=== PATIENT | male | born 1940 | race Caucasian/White ===

== ENCOUNTER 2016-08-27 17:58 | Emergency (ER) | payer MEDICARE, OTHER ==
--- NOTE | 2016-08-27 19:42 | ED ---
Darnell Barros Claudia, scribed for Chintan Grant MD on 08/27/16 at 1931 . Back Pain - HPI Summary HPI Summary: 75 year old male presents to the ED with lower back pain post mechanical fall at about 16:30-17:00 today. Pt notes that was coming in from taking out the trash when he slipped on ice and fell. Pt was unable to help him stand so she dragged him inside out of the cold to await EMS lift assistance. Pt was then complaining of lower back pain so they decided to come to the ED. Pt also suffered a fall on Thursday am but did not have any injuries. Pt does not use an walkers or canes for assistance in waling. Pt notes that he has been walking fine previous to the accident today. - History of Current Complaint Chief Complaint: EDWeakness Stated Complaint: FALL/LOWER BACK PAIN Time Seen by Provider: 08/27/16 19:23 Hx Obtained From: Patient Onset/Duration: Sudden Onset - post mechanical fall this evening at 16:30-17:00 , Still Present Onset/Duration: Started Hours Ago Timing: Constant Pain Intensity: 0 Pain Scale Used: 0-10 Numeric Character: Unable to Describe - Allergies/Home Medications Allergies/Adverse Reactions: Allergies Allergy/AdvReac Type Severity Reaction Status Date / Time Niacin Allergy Rash And Verified 08/23/16 10:14 Itching Sulfa Drugs Allergy Unknown Verified 08/23/16 10:14 Reaction Details Meperidine [From Demerol HCl] AdvReac Intermediate Hallucinati Verified 10:14 on Promethazine [From Phenergan] AdvReac Intermediate Hallucinati Verified 10:14 on contrast dye AdvReac Intermediate Hallucinati Uncoded 07/18/15 13:37 on Home Medications: Home Medications Cholecalciferol TAB* [Vitamin D TAB*] 2,000 units PO QAM 08/27/16 [History Confirmed 08/27/16] [place]-3 Fatty Acids (Nf) [Fish Oil (NF)] 2,000 mg PO QAM 08/27/16 [History Confirmed 08/27/16] metFORMIN* [Glucophage*] 1,000 mg PO QAM 08/27/16 [History Confirmed 08/27/16] PMH/Surg Hx/FS Hx/Imm Hx Previously Healthy: Yes Endocrine/Hematology History: Reports: Hx Diabetes Cardiovascular History: Reports: Hx Coronary Artery Disease, Hx Hypertension, Other Cardiovascular Problems/Disorders - CAD, stent placed 2007 Denies: Hx Pacemaker/ICD Respiratory History: Reports: Hx Chronic Bronchitis - sev. bouts of , early , Hx Pneumonia - late early , Other Respiratory Problems/ Disorders GI History: Reports: Hx Hiatal Hernia, Hx Ulcer - d/t motrin, Other GI Disorders - perforated bowel History: Reports: Hx Benign Prostatic Hyperplasia, Other Problems/ Disorders - BPH Musculoskeletal History: Reports: Hx Arthritis - Knee surgeries, Hx Back Problems - L4 and L5 (laminectomy), Other Musculoskeletal History - RIght big toe deformity leading to surgery Sensory History: Denies: Hx Contacts or Glasses, Hx Hearing Aid Opthamlomology History: Denies: Hx Contacts or Glasses Neurological History: Reports: Hx Dementia - baseline confusion Denies: Other Neuro Impairments/Disorders Psychiatric History: Reports: Hx Depression Denies: Hx Panic Disorder - Surgical History Surgery Procedure, Year, and Place: hernia repair 2002, perforated bowel 2003 all umbilical area[facility] laminectomy, Knee surgeries bilateral, two surgeries on right foot,hiatal hernia repair. , removal of infected tissue from bed sores and surgical site Hx Anesthesia Reactions: No Infectious Disease History: Reports: Hx of Known/Suspected MRSA Denies: History Other Infectious Disease, Traveled Outside the in Last 30 Days - Family History Known Family History: Positive: Cardiac Disease - father D in 60s., Diabetes - Social History Occupation: Retired Lives: With Family Alcohol Use: None Alcohol Amount: ONCE A WEEK OR EOW Substance Use Type: Reports: None Smoking Status (MU): Never Smoked Tobacco Review of Systems Negative: Fever, Chills Eyes: Negative ENT: Negative Cardiovascular: Negative Respiratory: Negative Gastrointestinal: Negative Genitourinary: Negative Positive: Other - back pain Skin: Negative Neurological: Negative Psychological: Normal All Other Systems Reviewed And Are Negative: Yes Physical Exam Triage Information Reviewed: Yes Vital Signs On Initial Exam: Initial Vitals Temp Pulse Resp BP Pulse Ox 98.6 F 93 20 123/48 100 08/27/16 18:04 08/27/16 18:04 08/27/16 18:04 08/27/16 18:04 08/27/16 18:04 Vital Signs Reviewed: Yes Completion Of Physical Exam Limited Due To: Dementia Appearance: Positive: Well-Appearing, No Pain Distress Skin: Positive: Warm Eyes: Positive: MARQUEZ ENT: Positive: Hearing grossly normal Respiratory/Lung Sounds: Positive: Breath Sounds Present Musculoskeletal: Positive: Other - mild lower lumbar area tenerness, able to bear weight Neurological: Positive: Sensory/Motor Intact Psychiatric: Positive: Affect/Mood Appropriate - [place] Coma Scale Coma Scale Total: 15 Diagnostics - Vital Signs Vital Signs Temp Pulse Resp BP Pulse Ox 08/27/16 18:04 98.6 F 93 20 123/48 100 - Laboratory Lab Statement: Any lab studies that have been ordered have been reviewed, and results considered in the medical decision making process. - Radiology PELVIS XR Xray Interpretation: No Acute Changes Radiology Interpretation Completed By: ED Physician LUMBAR SPINE XR Xray Interpretation: No Acute Changes Radiology Interpretation Completed By: ED Physician Re-Evaluation - Re-Evaluation 1 Re-Evaluation Time: 20:36 Change: Improved Comment: Xray results are discussed with the patient. Patient is agreeable with the plan to be d/c home. Back Pain Course/Dx - Course Assessment/Plan: Pt presents with lower back pain post mechanical fall this evening. After Pelvis XR and Lumbar Spine XR both negative. Pt will be discharged home with follow-up with PCP this week. - Diagnoses Provider Diagnoses: Multiple contusions Discharge - Discharge Plan Condition: Improved Disposition: HOME Patient Education Materials: Fall Prevention (ED), Contusion in Adults (ED) Referrals: Darío Linton MD [Primary Care Provider] - 2 Days (Please follow-up. ) The documentation as recorded by the Darnell greenfield Claudia accurately reflects the service I personally performed and the decisions made by , Chintan Grant MD.
--- NOTE | 2016-08-27 20:46 | RAD ---
Indication: Fall backwards. Negative for bruising or deformity. Comparison: November 08, 2010 CT. Technique: AP and lateral views lumbar sacral spine. Report: Minimal grade 1 degenerative L4-L5 anterolisthesis and L2-L3 retrolisthesis without significant change. Negative for fracture. Multilevel degenerative spondylosis with only mild disc space narrowing. Advanced facet joint osteoarthritis throughout. Unremarkable paraspinal soft tissue contours. Upper abdominal and anterior pelvic wall surgical clips. IMPRESSION: No traumatic injury of the lumbar sacral spine evident. Degenerative spondylosis and facet joint osteoarthritis.
--- NOTE | 2016-08-27 20:49 | RAD ---
Indication: Fall backwards. No bruising or deformity. Comparison: June 15, 2013 CT. Technique: AP pelvis. Report: Negative for pelvic fracture or joint diastases. Unremarkable alignment of the hips in the AP projection. Bilateral lower quadrant abdominal wall surgical clips and RIGHT inguinal canal surgical clips. No gross soft tissue contour abnormality accounting for large body habitus. IMPRESSION: No pelvic fracture or joint diastases evident.
[2016-08-27 20:51] VITALS: BP 122/81
== END 2016-08-27 20:49 | disposition home or self-care (01) ==
LOC: ED 17:58
DX: T14.8 Other injury of unspecified body region (principal); M54.5 Low back pain; E11.9 Type 2 diabetes mellitus without complications; I10 Essential (primary) hypertension; I25.10 Atherosclerotic heart disease of native coronary artery without angina pectoris; N40.0 Benign prostatic hyperplasia without lower urinary tract symptoms; J42 Unspecified chronic bronchitis; W00.0XXA Fall on same level due to ice and snow, initial encounter; Y93.E9 Activity, other interior property and clothing maintenance; Y92.9 Unspecified place or not applicable; Z88.2 Allergy status to sulfonamides
CPT/HCPCS: 72100; 72170

== ENCOUNTER 2016-09-22 11:13 | Emergency (ER) | payer MEDICARE, OTHER ==
--- NOTE | 2016-09-22 14:32 | ED ---
Bill Barros Matthew, scribed for Saloni Michelle MD on 09/22/16 at 1314 . Progress - Progress Note Progress Note: Per the the patient is a diabetic. He has a partially amputated right toe. He has not been on Abx, because of the sudden onset of erythema of the left and right foot. Erythema half way up his left foot with good pulses and starting on the lateral edge. right foot with area of hematoma on plantar surface without erythema No Pain Currently Hx of CVA plan xrays of both feet, labs Course/Dx - Diagnoses Provider Diagnoses: Cellulitis The documentation as recorded by the Bill greenfield Matthew accurately reflects the service I personally performed and the decisions made by me, Saloni Michelle MD.
--- NOTE | 2016-09-22 14:48 | RAD ---
INDICATION: Left foot infection. TECHNIQUE: 2 views of the left foot were obtained. FINDINGS: There is soft tissue swelling present over the dorsal aspect of the foot. The bones are normal alignment. No fracture is seen. No periosteal reaction or erosive changes are noted. IMPRESSION: SOFT TISSUE SWELLING, NO SPECIFIC EVIDENCE FOR OSTEOMYELITIS.
--- NOTE | 2016-09-22 14:49 | RAD ---
HISTORY: New focal ulcer, right foot COMPARISONS: June 11, 2014 VIEWS: 2, Frontal, lateral, and oblique views of the right foot FINDINGS: BONE DENSITY: Normal. BONES: There is no displaced fracture. 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 There is no appreciable erosion or periosteal reaction. JOINTS: There is mild osteoporosis of the midfoot ALIGNMENT: There is no dislocation. SOFT TISSUES: Unremarkable. OTHER FINDINGS: None. IMPRESSION: NO ACUTE OSSEOUS INJURY. PLAIN FILM FINDINGS OF OSTEOMYELITIS ARE RELATIVELY LATE FINDINGS. IF THERE IS PERSISTENT CLINICAL CONCERN FOR OSTEOMYELITIS, RECOMMEND CORRELATION WITH FOLLOWUP IMAGING, THREE-PHASE BONE SCANNING, WHITE BLOOD CELL SCAN, AND/OR MRI OF THE AFFECTED REGION. .
[2016-09-22 15:05] LABS: Hematocrit 44 % (42-52); Hemoglobin 14.4 g/dl (14.0-18.0); Mean Corpuscular HGB Conc 33 g/dl (31-36); Mean Corpuscular Hemoglobin 33 pg (27-31); Mean Corpuscular Volume 100 fL (80-94); Mean Platelet Volume 10 um3 (7.4-10.4); Red Blood Count 4.38 10^6/ul (4.0-5.4); Red Cell Distribution Width 14 % (10.5-15); White Blood Count 5.8 10^3/ul (3.5-10.8)
[2016-09-22 15:20] LABS: Albumin 4.1 g/dL (3.2-5.2); C Reactive Protein 4.82 mg/L (< 5.00); Calcium 9.6 mg/dL (8.6-10.3); EGFR African American 101.2 (>60); EGFR Non-African American 78.7 (>60); Globulin 3.2 g/dL (2-4); Total Bilirubin 0.5 mg/dL (0.2-1.0); Total Protein 7.3 g/dL (6.4-8.9)
[2016-09-22 15:42] LABS: Potassium 4.7 mmol/L (3.5-5.0)
[2016-09-22] MEDS ORDERED: Clindamycin CAP* 150 MG PO ONE (15:59)
[2016-09-22 16:26] VITALS: BP 112/67
--- NOTE | 2016-09-22 17:05 | ED ---
Yovani Barros Michael, scribed for Ronaldo Lutz MD on 09/22/16 at 1555 . Skin Complaint - HPI Summary HPI Summary: 75 y/o male was referred to the ED by a career orientation teacher because of constant erythema of the left foot that started 5 days ago. The area of the foot affected by the erythema was warm per . The pt has 2 blood blisters on each big toe with swelling. The notes, to her knowledge, the pt has not presented a fever and denies foot pain. The PMHx is significant for DM and CVA which left the pt with a language deficit. - History of Current Complaint Chief Complaint: EDGeneral Time Seen by Provider: 09/22/16 15:37 Stated Complaint: WOUND ON RT FOOT/LT FOOT POSS INFECTION Hx Obtained From: Family/Editor Index - , Medical Records Hx From Patient Unobtainable Due To: Other - CVA-language deficit Onset/Duration: Started Days Ago, Still Present Skin Exposure Onset/Duration: Days Ago Timing: Constant Onset Severity: Moderate Current Severity: Moderate Pain Intensity: 16 Skin Location: Foot - left Character: Swelling, Redness Aggravating Symptom(s): Nothing Alleviating Symptom(s): Nothing Associated Signs & Symptoms: Negative - fever. foot pain. - Additional Pertinent History Primary Care Physician: [id number] - Allergy/Home Medications Allergies/Adverse Reactions: Allergies Allergy/AdvReac Type Severity Reaction Status Date / Time Niacin Allergy Rash And Verified 08/23/16 10:14 Itching Sulfa Drugs Allergy Unknown Verified 08/23/16 10:14 Reaction Details Meperidine [From Demerol HCl] AdvReac Intermediate Hallucinati Verified 10:14 on Promethazine [From Phenergan] AdvReac Intermediate Hallucinati Verified 10:14 on contrast dye AdvReac Intermediate Hallucinati Uncoded 07/18/15 13:37 on PMH/Surg Hx/FS Hx/Imm Hx Endocrine/Hematology History: Reports: Hx Diabetes Cardiovascular History: Reports: Hx Coronary Artery Disease, Hx Hypertension, Other Cardiovascular Problems/Disorders - CAD, stent placed 2007 Denies: Hx Pacemaker/ICD Respiratory History: Reports: Hx Chronic Bronchitis - sev. bouts of , early , Hx Pneumonia - late s early , Other Respiratory Problems/ Disorders GI History: Reports: Hx Hiatal Hernia, Hx Ulcer - d/t motrin, Other GI Disorders - perforated bowel History: Reports: Hx Benign Prostatic Hyperplasia, Other Problems/ Disorders - BPH Musculoskeletal History: Reports: Hx Arthritis - Knee surgeries, Hx Back Problems - L4 and L5 (laminectomy), Other Musculoskeletal History - RIght big toe deformity leading to surgery Sensory History: Denies: Hx Contacts or Glasses, Hx Hearing Aid Opthamlomology History: Denies: Hx Contacts or Glasses Neurological History: Reports: Hx Dementia - baseline confusion Denies: Other Neuro Impairments/Disorders Psychiatric History: Reports: Hx Depression Denies: Hx Panic Disorder - Surgical History Surgery Procedure, Year, and Place: hernia repair 2002, perforated bowel 2003 all umbilical area, [facility] laminectomy, Knee surgeries bilateral, two surgeries on right foot,hiatal hernia repair. , removal of infected tissue from bed sores and surgical site Hx Anesthesia Reactions: No Infectious Disease History: Yes Infectious Disease History: Reports: Hx of Known/Suspected MRSA Denies: History Other Infectious Disease, Traveled Outside the in Last 30 Days - Family History Known Family History: Positive: Cardiac Disease - father D in 60s., Diabetes - Social History Occupation: Retired Lives: With Family Alcohol Use: None Alcohol Amount: ONCE A WEEK OR EOW Substance Use Type: Reports: None Smoking Status (MU): Never Smoked Tobacco Review of Systems Negative: Fever Positive: Other - erythema left foot and swelling of right/left foot All Other Systems Reviewed And Are Negative: Yes Physical Exam Triage Information Reviewed: Yes Vital Signs On Initial Exam: Initial Vitals Temp Pulse Resp BP Pulse Ox 97.5 F 76 18 114/72 95 09/22/16 11:27 09/22/16 11:27 09/22/16 11:27 09/22/16 11:27 09/22/16 11:27 Vital Signs Reviewed: Yes Appearance: Positive: Well-Appearing, No Pain Distress Skin: Positive: Warm, Dry, Other - left foot erythema of distal foot. 1 cm blood blister on medial aspect of the base of the left big toe. Right foot dorsum underneath big toe 1.5 cm blood blister with swelling. Head/Face: Positive: Normal Head/Face Inspection Eyes: Positive: EOMI, MARQUEZ ENT: Positive: Normal ENT inspection Neck: Positive: Supple, No Lymphadenopathy Respiratory/Lung Sounds: Positive: Clear to Auscultation, Breath Sounds Present Cardiovascular: Positive: RRR, Other - good dorsalis pedis pulse bilaterally and cap refill. Abdomen Description: Positive: Nontender, Soft Bowel Sounds: Positive: Present Musculoskeletal: Positive: Normal, Strength/ROM Intact Neurological: Positive: Normal, Sensory/Motor Intact, Alert, Oriented to Person Place, Time Psychiatric: Positive: Affect/Mood Appropriate Diagnostics - Vital Signs Vital Signs Temp Pulse Resp BP Pulse Ox 09/22/16 14:44 98.4 F 69 18 100/60 100 09/22/16 13:02 65 18 95/68 100 09/22/16 11:27 97.5 F 76 18 114/72 95 - Laboratory Lab Results: Lab Results 09/22/16 09/22/16 Range/Units 14:50 14:50 WBC 5.8 (3.5-10.8) 10^3/ul RBC 4.38 (4.0-5.4) 10^6/ul Hgb 14.4 (14.0-18.0) g/dl Hct 44 (42-52) % MCV 100 H (80-94) fL MCH 33 H (27-31) pg MCHC 33 (31-36) g/dl RDW 14 (10.5-15) % Plt Count 125 L (150-450) 10^3/ul MPV 10 (7.4-10.4) um3 Neut % (Auto) 56.5 (38-83) % Lymph % (Auto) 32.0 (25-47) % [place] % (Auto) 8.9 (1-9) % Eos % (Auto) 1.4 (0-6) % Baso % (Auto) 1.2 (0-2) % Absolute Neuts (auto) 3.3 (1.5-7.7) 10^3/ul Absolute Lymphs (auto) 1.8 (1.0-4.8) 10^3/ul Absolute Monos (auto) 0.5 (0-0.8) 10^3/ul Absolute Eos (auto) 0.1 (0-0.6) 10^3/ul Absolute Basos (auto) 0.1 (0-0.2) 10^3/ul Absolute Nucleated RBC 0.01 10^3/ul Nucleated RBC % 0.2 Sodium 133 (133-145) mmol/L Potassium Pending Chloride 104 (101-111) mmol/L Carbon Dioxide 23 (22-32) mmol/L Anion Gap Pending BUN 16 (6-24) mg/dL Creatinine 0.94 (0.67-1.17) mg/dL Est GFR ( Amer) 101.2 (>60) Est GFR (Non-Af Amer) 78.7 (>60) BUN/Creatinine Ratio 17.0 (8-20) Glucose 167 H (70-100) mg/dL Calcium 9.6 (8.6-10.3) mg/dL Total Bilirubin 0.50 (0.2-1.0) mg/dL AST Pending ALT 25 (7-52) U/L Alkaline Phosphatase 57 (34-104) U/L C-Reactive Protein 4.82 (< 5.00) mg/L Total Protein 7.3 (6.4-8.9) g/dL Albumin 4.1 (3.2-5.2) g/dL Globulin 3.2 (2-4) g/dL Albumin/Globulin Ratio 1.3 (1-3) Result Diagrams: 09/22/16 14:50 09/22/16 14:50 Lab Statement: Any lab studies that have been ordered have been reviewed, and results considered in the medical decision making process. - Radiology R foot XR Xray Interpretation: Positive (See Comments) - NO ACUTE OSSEOUS INJURY. PLAIN FILM FINDINGS OF OSTEOMYELITIS ARE RELATIVELY LATE FINDINGS. IF THERE IS PERSISTENT CLINICAL CONCERN FOR OSTEOMYELITIS, RECOMMEND CORRELATION WITH FOLLOWUP IMAGING, THREE-PHASE BONE SCANNING, WHITE BLOOD CELL SCAN, AND/OR MRI OF THE AFFECTED REGION. Radiology Interpretation Completed By: Radiologist L foot XR Xray Interpretation: Positive (See Comments) - SOFT TISSUE SWELLING, NO SPECIFIC EVIDENCE FOR OSTEOMYELITIS. Radiology Interpretation Completed By: Radiologist Course/Dx - Course Assessment/Plan: The patient will start on PO abx. He will follow up his foot and PCP and return to the ED if his symptoms worsen. WILL START ON CLINDAMYCIN 300MG PO QID WITH CLOSE F/U WITH PMD/DEPARTMENT STORE SALESPERSON; RETURN TO ED IF WORSE. DISCHARGE HOME STABLE. - Diagnoses Provider Diagnoses: Cellulitis, Diabetic foot infection Discharge - Discharge Plan Condition: Stable Disposition: HOME Prescriptions: Clindamycin Cap(NF) [Cleocin 300 mg Cap(NF)] 300 mg PO Q6H #39 cap Patient Education Materials: Cellulitis (ED), Diabetic Foot Ulcers (ED) Referrals: Darío Linton MD [Primary Care Provider] - Additional Instructions: FOLLOW UP WITH YOUR FOOT AND REGULAR DOCTOR. RETURN TO THE EMERGENCY DEPARTMENT FOR ANY WORSENING OF YOUR CONDITION; FEVER, SPREAD OF INFECTION, YOU FEEL ILL OR QUESTIONS OR CONCERNS. The documentation as recorded by the Yovani greenfield Michael accurately reflects the service I personally performed and the decisions made by me, Ronaldo Lutz MD.
== END 2016-09-22 16:25 | disposition home or self-care (01) ==
LOC: ED 11:13
DX: L03.116 Cellulitis of left lower limb (principal); E11.628 Type 2 diabetes mellitus with other skin complications; Z86.73 Personal history of transient ischemic attack (TIA), and cerebral infarction without residual deficits
CPT/HCPCS: 36415; 80053; 85025; 86140; 87040; 99283; A9270-GY

== ENCOUNTER 2017-01-18 11:03 | Inpatient (IN) | payer MEDICARE, OTHER ==
[2017-01-18 12:11] LABS: Hematocrit 44 % (42-52); Hemoglobin 14.7 g/dl (14.0-18.0); Mean Corpuscular HGB Conc 34 g/dl (31-36); Mean Corpuscular Hemoglobin 32 pg (27-31); Mean Corpuscular Volume 96 fL (80-94); Mean Platelet Volume 9 um3 (7.4-10.4); Red Blood Count 4.57 10^6/ul (4.0-5.4); Red Cell Distribution Width 14 % (10.5-15); White Blood Count 10.1 10^3/ul (3.5-10.8)
--- NOTE | 2017-01-18 12:21 | RAD ---
HISTORY: Increased right upper extremity weakness COMPARISONS: August 23, 2016 TECHNIQUE: Multiple contiguous axial CT scans were obtained of the head without intravenous contrast. FINDINGS: The study is limited by patient motion artifact. HEMORRHAGE/INFARCT: There is no hemorrhage or acute infarct. MASSES/SHIFT: There is no mass or shift. EXTRA-AXIAL SPACES: There are no extra-axial fluid collections. SULCI AND VENTRICLES: There is diffuse and proportional enlargement of the sulci and ventricles. CEREBRUM: There is mild hypoattenuation of the periventricular and subcortical white matter. BRAINSTEM: There are no focal parenchymal abnormalities. CEREBELLUM: There are no focal parenchymal abnormalities. VESSELS: The vessels are grossly normal. PARANASAL SINUSES: The paranasal sinuses are clear. ORBITS: The orbits are unremarkable. BONES AND SOFT TISSUE: No bone or soft tissue abnormalities are noted. OTHER: None IMPRESSION: 1. NO ACUTE INTRACRANIAL PATHOLOGY. 2. DIFFUSE INVOLUTIONAL CHANGE WITH CHRONIC SMALL VESSEL ISCHEMIC CHANGES.
--- NOTE | 2017-01-18 12:26 | RAD ---
HISTORY: Weakness COMPARISONS: January 12, 2017 VIEWS: 2: Frontal and lateral views of the chest. FINDINGS: CARDIOMEDIASTINAL SILHOUETTE: The cardiomediastinal silhouette is normal. PATRICK: The patrick are normal. PLEURA: The costophrenic angles are sharp. No pleural abnormalities are noted. LUNG PARENCHYMA: The lung volumes are low. The lungs are clear. Again noted is patchy alveolar opacification of the left lung base, though this is not as well evaluated on the current examination. ABDOMEN: The upper abdomen is clear. There is no subphrenic gas. BONES AND SOFT TISSUES: No bone or soft tissue abnormalities are noted. OTHER: None. IMPRESSION: LOW LUNG VOLUMES WITH PERSISTENT LEFT BASILAR ATELECTASIS VERSUS CONSOLIDATION
[2017-01-18 12:32] LABS: Albumin 3.9 g/dL (3.2-5.2); BUN/Creatinine Ratio 19.3 (8-20); Calcium 9.6 mg/dL (8.6-10.3); EGFR Non-African American 66.1 (>60); Potassium 4.1 mmol/L (3.5-5.0); Total Bilirubin 0.5 mg/dL (0.2-1.0); Total Protein 6.9 g/dL (6.4-8.9)
[2017-01-18 12:33] LABS: Troponin I 0.01 ng/mL (<0.04)
[2017-01-18 13:05] LABS: Urine Bilirubin Negative (Negative); Urine Glucose 1+(50 mg/dL) (Negative); Urine Nitrite Negative (Negative)
[2017-01-18] MEDS ORDERED: Acetaminophen TAB* 325 MG PO PRN (16:56)
[2017-01-18] MEDS ORDERED: Ondansetron INJ* 2 MG/ML VIAL IV PRN (16:56)
[2017-01-18] MEDS ORDERED: Dextrose 50% Syringe 50 ML* 25 GM/50 ML SYRINGE IV PUSH PRN (16:59)
[2017-01-18] MEDS ORDERED: NS 0.9% 1000 ML* 1,000 ML IV SCH (17:00)
[2017-01-18] MEDS: Enoxaparin(*) 40 MG/0.4 ML SYR SUBCUT SCH (18:11)
[2017-01-18] MEDS: Aspirin Low Dose CHEW TAB* 81 MG PO SCH (18:11)
[2017-01-18] MEDS: Insulin LISPRO* 1 UNITS UNIT SUBCUT SCH (18:16)
--- NOTE | 2017-01-18 18:44 | ED ---
Ayan Barros Auryana, scribed for Haim Medina MD on 01/18/17 at 1212 . Neurological HPI - HPI Summary HPI Summary: 76 year old male presents with increased weakness per . Patient states that he also has a headache but denies any other pain. Per report from nurse - recent dx of PNA; also recently had unwitnessed fall while stepped out of room for a minute - 3 days ago. reports that patient was fine at the time but in the following days he developed increased lethargy and weakness. Today, reports that patient was unable to walk- normally is able to walk. is the primary caregiver. PMHx is significant for CVA, and dementia . Patient is a level 5 caveat due to dementia and AMS. - History of Current Complaint Chief Complaint: EDWeakness Stated Complaint: WEAKNESS Time Seen by Provider: 01/18/17 11:29 Hx Obtained From: Family/Legal Administrative Assistant, Medical Records, Other: - nurse/triage Hx From Patient Unobtainable Due To: Dementia - level 5 caveat due to dementia/ AMS Onset/Duration: Gradual Onset Timing: Constant Onset Severity: Mild Current Severity: Mild Headache Location: Diffuse (Right), Diffuse (Left) Pain Intensity: 0 Pain Scale Used: 0-10 Numeric Character: Weak, Lethargy - increased per nurse report from , Other: - patient reports FLORES Syncope Context: Unwitnessed, At Rest - sitting before fall, Associated Head Trauma - none Associated Signs and Symptoms: Positive: Unsteady Gait - unable to ambulate, Headache, Weakness - Additional Pertinent History Primary Care Physician: [id number] - Allergy/Home Medications Allergies/Adverse Reactions: Allergies Allergy/AdvReac Type Severity Reaction Status Date / Time Niacin Allergy Rash And Verified 01/18/17 11:18 Itching Sulfa Drugs Allergy Unknown Verified 01/18/17 11:18 Reaction Details Meperidine [From Demerol HCl] AdvReac Intermediate Hallucinati Verified 11:18 on Promethazine [From Phenergan] AdvReac Intermediate Hallucinati Verified 11:18 on contrast dye AdvReac Intermediate Hallucinati Uncoded 01/18/17 11:18 on Home Medications: Home Medications Keflex 500 CAP* 500 mg PO BID 01/18/17 [History Confirmed 01/18/17] Levofloxacin TAB* [Levaquin TAB*] 500 mg PO DAILY 01/18/17 [History Confirmed ] PMH/Surg Hx/FS Hx/Imm Hx Previously Healthy: No - PATIENT IS A LEVEL 5 CAVEAT DUE TO DEMENTIA/AMS Endocrine/Hematology History: Reports: Hx Diabetes Cardiovascular History: Reports: Hx Coronary Artery Disease, Other Cardiovascular Problems/Disorders - HX OF STROKE IN 2002 Denies: Hx Congestive Heart Failure, Hx Hypertension, Hx Pacemaker/ICD Respiratory History: Reports: Hx Chronic Bronchitis - sev. bouts of , early , Hx Pneumonia - late early Denies: Hx Asthma, Other Respiratory Problems/Disorders GI History: Reports: Hx Hiatal Hernia, Hx Ulcer - d/t motrin, Other GI Disorders - perforated bowel History: Reports: Hx Benign Prostatic Hyperplasia, Other Problems/ Disorders - BPH Musculoskeletal History: Reports: Hx Arthritis - Knee surgeries, Hx Back Problems - L4 and L5 (laminectomy), Other Musculoskeletal History - RIght big toe deformity leading to surgery Sensory History: Denies: Hx Contacts or Glasses, Hx Hearing Aid Opthamlomology History: Denies: Hx Contacts or Glasses Neurological History: Reports: Hx CVA, Hx Dementia - baseline confusion Denies: Other Neuro Impairments/Disorders Psychiatric History: Reports: Hx Depression Denies: Hx Panic Disorder - Surgical History Surgery Procedure, Year, and Place: hernia repair 2002, perforated bowel 2003 all umbilical area[facility] laminectomy, Knee surgeries bilateral, two surgeries on right foot,hiatal hernia repair. , removal of infected tissue from bed sores and surgical site Hx Anesthesia Reactions: No Infectious Disease History: No Infectious Disease History: Reports: Hx of Known/Suspected MRSA Denies: History Other Infectious Disease, Traveled Outside the in Last 30 Days - Family History Known Family History: Positive: Cardiac Disease - father D in 60s., Diabetes - Social History Occupation: Retired Lives: With Family Alcohol Use: None Alcohol Amount: ONCE A WEEK OR EOW Substance Use Type: Reports: None Smoking Status (MU): Never Smoked Tobacco Review of Systems - ROS Summary Review of Systems Summary: PATIENT IS A LEVEL 5 CAVEAT DUE TO DEMENTIA/AMS. Negative: Fever Negative: Chest Pain Positive: Headache, Weakness Psychological: Normal All Other Systems Reviewed And Are Negative: No Physical Exam - Summary Physical Exam Summary: VITAL SIGNS: Reviewed. GENERAL: Patient is a fragile and disheveled male who is lying comfortable in the stretcher. Patient is not in any acute respiratory distress. HEAD AND FACE: No signs of trauma. No ecchymosis, hematomas or skull depressions. No sinus tenderness. EYES: PERRLA, EOMI x 2, No injected conjunctiva, no nystagmus. No photophobia. EARS: Hearing grossly intact. Ear canals and tympanic membranes are within normal limits. MOUTH: Oropharynx within normal limits. NECK: Supple, trachea is midline, no adenopathy, no JVD, no carotid bruit, no c- spine tenderness, neck with full ROM. No meningeal signs, no Kernig's or brudzinskis signs. CHEST: Symmetric, no tenderness at palpation LUNGS: Clear to auscultation bilaterally. No wheezing or crackles. CVS: Regular rate and rhythm, S1 and S2 present, no murmurs or gallops appreciated. ABDOMEN: Soft, non-tender. No signs of distention. No rebound no guarding, and no masses palpated. Bowel sounds are normal. EXTREMITIES: FROM in all major joints, no edema, no cyanosis or clubbing. NEURO: Alert but not oriented-patient has a hsitory of dementia. RUE weakness. Patient follows commands. Speech normal. SKIN: Dry and warm Triage Information Reviewed: Yes Vital Signs On Initial Exam: Initial Vitals Temp Pulse Resp BP Pulse Ox 97.7 F 97 14 116/57 97 01/18/17 11:12 01/18/17 11:12 01/18/17 11:12 01/18/17 11:12 01/18/17 11:12 Vital Signs Reviewed: Yes - Loli Coma Scale Coma Scale Total: 14 Diagnostics - Vital Signs Vital Signs Temp Pulse Resp BP Pulse Ox 01/18/17 11:17 95 98 01/18/17 11:16 116/57 01/18/17 11:14 97.7 F 98 14 116/57 100 01/18/17 11:12 97.7 F 97 14 116/57 97 - Laboratory Lab Results: Lab Results 01/18/17 01/18/17 01/18/17 Range/Units 11:50 11:50 11:50 WBC 10.1 (3.5-10.8) 10^3/ul RBC 4.57 (4.0-5.4) 10^6/ul Hgb 14.7 (14.0-18.0) g/dl Hct 44 (42-52) % MCV 96 H (80-94) fL MCH 32 H (27-31) pg MCHC 34 (31-36) g/dl RDW 14 (10.5-15) % Plt Count 158 (150-450) 10^3/ul MPV 9 (7.4-10.4) um3 Neut % (Auto) 73.2 (38-83) % Lymph % (Auto) 16.0 L (25-47) % [place] % (Auto) 8.9 (1-9) % Eos % (Auto) 1.3 (0-6) % Baso % (Auto) 0.6 (0-2) % Absolute Neuts (auto) 7.4 (1.5-7.7) 10^3/ul Absolute Lymphs (auto) 1.6 (1.0-4.8) 10^3/ul Absolute Monos (auto) 0.9 H (0-0.8) 10^3/ul Absolute Eos (auto) 0.1 (0-0.6) 10^3/ul Absolute Basos (auto) 0.1 (0-0.2) 10^3/ul Absolute Nucleated RBC 0 10^3/ul Nucleated RBC % 0 INR (Anticoag Therapy) 0.99 (0.89-1.11) Sodium 137 (133-145) mmol/L Potassium 4.1 (3.5-5.0) mmol/L Chloride 103 (101-111) mmol/L Carbon Dioxide 25 (22-32) mmol/L Anion Gap 9 (2-11) mmol/L BUN 21 (6-24) mg/dL Creatinine 1.09 (0.67-1.17) mg/dL Est GFR ( Amer) 85.0 (>60) Est GFR (Non-Af Amer) 66.1 (>60) BUN/Creatinine Ratio 19.3 (8-20) Glucose 192 H (70-100) mg/dL Lactic Acid (0.5-2.0) mmol/L Calcium 9.6 (8.6-10.3) mg/dL Total Bilirubin 0.50 (0.2-1.0) mg/dL AST 14 (13-39) U/L ALT 13 (7-52) U/L Alkaline Phosphatase 74 (34-104) U/L Troponin I 0.01 (<0.04) ng/mL Total Protein 6.9 (6.4-8.9) g/dL Albumin 3.9 (3.2-5.2) g/dL Globulin 3.0 (2-4) g/dL Albumin/Globulin Ratio 1.3 (1-3) TSH Cancelled Urine Color Urine Appearance Urine pH (5-9) Ur Specific [place] (1.010-1.030) Urine Protein (Negative) Urine Ketones (Negative) Urine Blood (Negative) Urine Nitrate (Negative) Urine Bilirubin (Negative) Urine Urobilinogen (Negative) Ur Leukocyte Esterase (Negative) Urine Glucose (Negative) 01/18/17 01/18/17 Range/Units 11:50 12:45 WBC (3.5-10.8) 10^3/ul RBC (4.0-5.4) 10^6/ul Hgb (14.0-18.0) g/dl Hct (42-52) % MCV (80-94) fL MCH (27-31) pg MCHC (31-36) g/dl RDW (10.5-15) % Plt Count (150-450) 10^3/ul MPV (7.4-10.4) um3 Neut % (Auto) (38-83) % Lymph % (Auto) (25-47) % [place] % (Auto) (1-9) % Eos % (Auto) (0-6) % Baso % (Auto) (0-2) % Absolute Neuts (auto) (1.5-7.7) 10^3/ul Absolute Lymphs (auto) (1.0-4.8) 10^3/ul Absolute Monos (auto) (0-0.8) 10^3/ul Absolute Eos (auto) (0-0.6) 10^3/ul Absolute Basos (auto) (0-0.2) 10^3/ul Absolute Nucleated RBC 10^3/ul Nucleated RBC % INR (Anticoag Therapy) (0.89-1.11) Sodium (133-145) mmol/L Potassium (3.5-5.0) mmol/L Chloride (101-111) mmol/L Carbon Dioxide (22-32) mmol/L Anion Gap (2-11) mmol/L BUN (6-24) mg/dL Creatinine (0.67-1.17) mg/dL Est GFR ( Amer) (>60) Est GFR (Non-Af Amer) (>60) BUN/Creatinine Ratio (8-20) Glucose (70-100) mg/dL Lactic Acid 1.7 (0.5-2.0) mmol/L Calcium (8.6-10.3) mg/dL Total Bilirubin (0.2-1.0) mg/dL AST (13-39) U/L ALT (7-52) U/L Alkaline Phosphatase (34-104) U/L Troponin I (<0.04) ng/mL Total Protein (6.4-8.9) g/dL Albumin (3.2-5.2) g/dL Globulin (2-4) g/dL Albumin/Globulin Ratio (1-3) TSH Urine Color Yellow Urine Appearance Clear Urine pH 5.0 (5-9) Ur Specific [place] 1.026 (1.010-1.030) Urine Protein Negative (Negative) Urine Ketones Trace H (Negative) Urine Blood Negative (Negative) Urine Nitrate Negative (Negative) Urine Bilirubin Negative (Negative) Urine Urobilinogen Negative (Negative) Ur Leukocyte Esterase Negative (Negative) Urine Glucose 1+(50 mg/dl) H (Negative) Result Diagrams: 01/18/17 11:50 01/18/17 11:50 Lab Statement: Any lab studies that have been ordered have been reviewed, and results considered in the medical decision making process. - Radiology CXR Xray Interpretation: Positive (See Comments) - IMPRESSION: LOW LUNG VOLUMES WITH PERSISTENT LEFT BASILAR ATELECTASIS VERSUS CONSOLIDATION Radiology Interpretation Completed By: Radiologist - CT BRAIN CT Interpretation: Positive (See Comments) - IMPRESSION: 1. NO ACUTE INTRACRANIAL PATHOLOGY. 2. DIFFUSE INVOLUTIONAL CHANGE WITH CHRONIC SMALL VESSEL ISCHEMIC CHANGES. CT Interpretation Completed By: Radiologist - EKG 12:27 EKG Interpretation: NSR @ 87 BPM, NO ST ELEVATION Course/Dx - Course Course Of Treatment: 76 year old male presents with increased weakness per . Patient states that he also has a headache but denies any other pain. Per report from nurse - recent dx of PNA; also recently had unwitnessed fall while stepped out of room for a minute - 3 days ago. reports that patient was fine at the time but in the following days he developed increased lethargy and weakness. Today, reports that patient was unable to walk- normally is able to walk. is the primary caregiver. PMHx is significant for CVA, and dementia . Patient is a level 5 caveat due to dementia and AMS. Assessment/Plan: Test result WNL. UA shows no U.T.I. CXR- IMPRESSION: LOW LUNG VOLUMES WITH PERSISTENT LEFT BASILAR ATELECTASIS VERSUS CONSOLIDATION. HEAD CT - IMPRESSION: 1. NO ACUTE INTRACRANIAL PATHOLOGY. 2. DIFFUSE INVOLUTIONAL CHANGE WITH CHRONIC SMALL VESSEL ISCHEMIC CHANGES. In ED course patient was given IV fluids but still is very weak. Attempted to ambulate but unable to ambulate therefore I discussed my physical exam and findings with Dr. Olmstead who agree to admit for further work up. Patient will be admitted to his services with weakness, inability to ambulate, inability to care for himself. - Diagnoses Provider Diagnoses: Weakness, Unable to ambulate - Physician Notifications Discussed Care of Patient With: Dr. Olmstead/ VOLODYMYR TOBAR Time Discussed With Above Provider: 15:00 - agrees to admit Discharge - Discharge Plan Condition: Stable Disposition: ADMITTED TO [facility] The documentation as recorded by the Ayan greenfield Auryana accurately reflects the service I personally performed and the decisions made by me, Haim Medina MD.
[2017-01-18] MEDS: Cephalexin CAP* 500 MG PO SCH (20:34)
[2017-01-18] MEDS: Nystatin CREAM* 15 GM TUBE TOPICAL SCH (20:34)
--- NOTE | 2017-01-18 22:32 | HP ---
HISTORY AND PHYSICAL: DATE OF ADMISSION: 01/18/17 PROVIDER: Jean Claude Mayorga NP ATTENDING PHYSICIAN: Lindsay Olmstead DO* (as dictated by Jean Claude Mayorga NP). PRIMARY CARE PHYSICIAN: Dr. Darío Linton. CHIEF COMPLAINT: Inability to ambulate, altered mental status, weakness. HISTORY OF PRESENT ILLNESS: Mr. Bustamante is a 76-year-old male with a past medical history significant for dementia, previous CVA. The patient does have expressive aphasia. The history was provided by the patient's and front end software developer, Aliza Bustamante. Per Aliza, Mr. Bustamante fell back on , . This was an unwitnessed fall. She states that on 01/09/17, the patient was sitting in a chair eating ice cream. She got up to go print out a recipe and then heard him fall. She said the patient he does not call out when he does fall. At this point, she states "everything changed." Prior to this fall, the patient could walk and follow directions. She states that they were previously walking each day out in the community. They would go to visit their son down the road at his diner. She cites that on 01/12/17, she was able to get the patient up and walking and they went to go see their PCP. An EKG and labs were drawn there. They did have an x- ray ordered to evaluate for pneumonia as the EKG and laboratory workup were apparently mostly benign. She said at that time the patient had difficulty understanding what the x-ray tech was asking for him to do and that she had to help him bodily get through the x- ray procedure. This is abnormal for him. She also reports that since this period of time around the through the , the patient has been sleeping more at times up to 3 p.m. in the afternoon. She states that in the morning, the patient can still get up and stand and walk, but usually by evening, he could barely transfer that she has to bodily place him in the bed. She also reports that he has been increasingly more short of breath. He was diagnosed with pneumonia following that chest x-ray on the and was started on Levaquin. Dr. Linton did try to have the patient's oxygen measured at home, but the patient was uncooperative with the oximetry probe. Ms. Bustamante states that since July of last year, he has fallen numerous times he thinks about 8 times. She says most of these events were him falling out of bed. They also usually trace back to mechanical falls. She is usually able to get him up with help from family or she will call EMS for lift assist. She also points out that the patient's left index finger which had some redness just below the cuticle area. He has been on Keflex for the cellulitis as well as Levaquin for his pneumonia. On the morning of 01/18/17, the patient woke up at approximately 8 a.m., which is closer to his normal. She was able to help him get up, get shaved, showered , and dressed, and they went for a walk just after 9 a.m. with his walker. She states that the patient had to stop 3 times due to shortness of breath even only traveling approximately 30 to 60 feet. He still exhibited difficulty following directions. The patient sat down and then, they had difficulty getting him up and he was unable to stand. At this point, he was brought in by ambulance for further evaluation. In the ER, the patient had labs drawn, which are mostly benign. The patient's urinalysis is negative, although he does seem to have a little bit of dehydration. The nursing staff attempted to ambulate the patient, but he was unable to do so. Hospital Medicine was called for admission. PAST MEDICAL HISTORY: Includes: 1. Yde-[id number] diabetes. 2. History of CVA. 3. Dementia. 4. Coronary artery disease, status post stent placement. 5. Hypertension. 6. History of perforated bowel. 7. History of depression with suicidality. 8. Vasovagal syncope. HOME MEDICATIONS: 1. Levofloxacin 500 mg daily. This was started on 01/13/17. 2. Keflex 500 mg b.i.d. for right finger cellulitis. This was started on 01/13. 3. Plavix 75 mg q.a.m. 4. Vitamin D 2000 units q.a.m. 5. Metformin 1000 mg q.a.m. 6. [place]-3 2000 mg q.a.m. 7. Metoprolol tartrate 25 mg q.a.m. 8. Donepezil 10 mg daily. 9. Coenzyme Q10 200 mg q.a.m. ALLERGIES: Include NIACIN, SULFA DRUGS, MEPERIDINE, PROMETHAZINE, and CONTRAST DYE. FAMILY HISTORY: Reviewed and noncontributory. SOCIAL HISTORY: The patient does not currently use tobacco, alcohol, or illicit drugs. He lives with his , who is his primary front end software developer. The patient formerly worked at [employer]. Aliza Bustamante is his healthcare proxy and surrogate decision maker. His son, Howie Bustamante, would be the secondary healthcare proxy. REVIEW OF SYSTEMS: General: denies any fevers. The patient has been eating well and swallowing well. She does endorse generalized weakness and inability to ambulate. Cardiac: Denies any complaints of chest pain or edema. Respiratory: Denies cough, but does endorse shortness of breath with ambulation. GI: Denies nausea, vomiting, or diarrhea. The patient's last bowel movement was 4 days ago. Genitourinary: The patient is incontinent of urine, but denies any foul-smelling urine, dysuria, or hematuria. Neuro: The patient has expressive aphasia and new difficulty following directions as well as waxing and waning mental status. No focal weaknesses have been noted. ENT: No congestion, visual or hearing changes. Musculoskeletal: No new joint pains or muscle pains. The patient was previously able to walk and does not complain of any pain when he is able to ambulate. He does have a left index finger cellulitis, but range of motion was intact. Skin: Again, left index finger cellulitis. There is a perianal rash that she reports is from incontinence. The patient is unable to contribute any information towards review of systems. All information obtained from the patient's , Aliza. PHYSICAL EXAMINATION GENERAL: Mr. Bustamante is a 76-year-old male patient, who is lying in the ED stretcher. He is unable to verbalize, but appears well nourished. VITAL SIGNS: Temperature 97.3, heart rate 102, respiratory rate 20, blood pressure 93/52, and O2 saturation is 96% on room air. HEENT: Sclerae are anicteric. External ears and nose are normal. Oral mucosa appears moist. No oropharyngeal erythema noted. NECK: Supple. No lymphadenopathy appreciated. No thyromegaly noted. RESPIRATORY: Lungs are clear to auscultation. They are mildly diminished. No wheezing, rales, or rhonchi noted. There is no accessory muscle use. CARDIAC: S1, S2 heart sounds. Regular rate and rhythm. No murmurs, rubs, or gallops. There is no peripheral lower extremity edema. The patient does have 2 + distal pulses. ABDOMEN: Soft, nontender, nondistended. The patient has normoactive bowel sounds. MUSCULOSKELETAL: No clubbing or cyanosis noted. The patient is able to move all extremities. SKIN: The patient has what appears to be a stage I to the buttocks and a yeast - appearing red and green rash to the groin around the scrotum. He does have erythema just below the left index finger cuticle. NEUROLOGIC: The patient moves all extremities. He has expressive aphasia. He is not following commands. LABORATORY DATA AND DIAGNOSTIC STUDIES: CBC: WBC 10.1, hemoglobin 14.7, hematocrit 44, platelet count 158. INR 0.99. CMP: Sodium 137, potassium 4.1, chloride 103, carbon dioxide 25, BUN 21, creatinine 1.09, glucose 192, lactic acid 1.7, calcium 9.6. Total bilirubin 0.5, AST 14, ALT 13, alk phos 74. Troponin 0.01. Albumin 3.9. Urinalysis is mostly negative only showing trace ketones and 1+ glucose. CT of the brain shows: 1. No acute intracranial pathology. 2. Diffuse involutional change with chronic small vessel ischemic changes. Chest x-ray, impression: Low lung volumes with persistent left basilar atelectasis versus consolidation. EKG shows sinus rhythm with abnormal lateral Q waves. EKG is consistent with previous EKGs on record. Old medical records were reviewed. ASSESSMENT AND PLAN: Mr. Bustamante is a 76-year-old male patient who presents today with concern for altered mental status, weakness, and general change from baseline. We will admit him as an observation patient to the telemetry floor. Plan is as follows: 1. Altered mental status: At baseline, the reports that he was walking and able to follow directions and this has been a decline since his most recent fall a little over a week ago. The cause of the fall is unknown. It is unclear if the patient had a syncopal episode or if he was reaching for something and fell. She denies that he had any loss of consciousness at that time. The patient does have a history of a previous cerebrovascular accident that seems that the patient's mental status is inconsistent, although it seems like he does do better in the morning and then progressively gets worse over the course of the day. This may represent his existing dementia, worsening perhaps in the presence of a new injury, and may also represent his pneumonia; perhaps, he is reacting to an infection. He may also be hypoxic, although this was unclear and unable to be evaluated at home due to the patient's noncooperation. We will admit him and watch him on telemetry and continue neurological checks. I will try to do a pulse oximetry reading overnight, although I suspect that it may be most useful to try to ambulate the patient to see what his oxygen levels do then. The patient does not have any history of chronic lung disease. This may be simply secondary to the patient's pneumonia. There is also a chance that the patient could be having transient ischemic attacks. He does have risk factor with his coronary artery disease and diabetes. It would be worthwhile to check an MRI to rule out any type of subacute event or acute event. The patient's seems determinant of taking him home, but just wants to know that we have done everything and that we have ruled out any other possible causes for his change in mental status. His blood sugars will be monitored. We will check vital signs and he will also have a B12 and folate level checked as well. 2. Weakness: Again, the etiology of this is unclear. We have ordered him a PT /OT evaluation. This may be secondary to acute infection or advancing dementia. Continue to monitor. This may also be a medication reaction to the Levaquin, although it is difficult to say if this new weakness is timed with the start of the Levaquin. 3. Macrocytosis: Check B12 and folate levels. 4. Left lower lobe pneumonia: Continue Levaquin. The patient has received approximately 5 days of treatment thus far. 5. Left index finger cellulitis: Continue Keflex. 6. Type 2 diabetes: The patient is diet controlled and on metformin. We will hold his metformin here and cover him with lispro sliding scale insulin. We will check an A1c. 7. History of coronary artery disease: Continue Plavix. Continue metoprolol. 8. History of cerebrovascular accident: Continue Plavix. 9. Dementia: Continue Aricept and supportive care. 10. Hypertension: Continue metoprolol. 11. FEN: The patient is ordered a regular diet per the 's request in order to give him the best range of food options. 12. DVT prophylaxis: The patient is ordered subcu Lovenox. 13. Code status: He is a DNR with trial intubation. A new MOLST is on the record. TIME SPENT: Time spent on this admission was approximately 65 minutes, more than half that time was spent [id number] with the patient and his spouse obtaining history and physical, performing the physical examination, and reviewing the plan of care. Plan of care was also reviewed with my attending, Dr. Olmstead, who is in agreement. JEAN CLAUDE MAYORGA NP CC: Dr. Darío Linton* [id number]/CPS #: [id number] MTDD
[2017-01-19 06:48] LABS: Hematocrit 39 % (42-52); Hemoglobin 13.1 g/dl (14.0-18.0); Mean Corpuscular HGB Conc 34 g/dl (31-36); Mean Corpuscular Hemoglobin 33 pg (27-31); Mean Corpuscular Volume 96 fL (80-94); Mean Platelet Volume 9 um3 (7.4-10.4); Red Cell Distribution Width 14 % (10.5-15); White Blood Count 7.5 10^3/ul (3.5-10.8)
[2017-01-19 07:05] LABS: BUN/Creatinine Ratio 14.1 (8-20); Calcium 8.5 mg/dL (8.6-10.3); EGFR African American 103.4 (>60); EGFR Non-African American 80.4 (>60); Potassium 3.5 mmol/L (3.5-5.0)
[2017-01-19 07:34] LABS: Folate 11.68 ng/mL (>3.99)
[2017-01-19] MEDS ORDERED: Levofloxacin TAB* 500 MG PO SCH (09:00)
[2017-01-19] MEDS: Insulin LISPRO* 1 UNITS UNIT SUBCUT SCH ×3 (09:01→17:30)
[2017-01-19] MEDS: Cephalexin CAP* 500 MG PO SCH (09:01)
[2017-01-19] MEDS: Aspirin Low Dose CHEW TAB* 81 MG PO SCH (09:01)
[2017-01-19] MEDS: Clopidogrel TAB* 75 MG PO SCH (09:01)
[2017-01-19] MEDS: Cholecalciferol TAB* 1000 UNITS PO SCH (09:01)
[2017-01-19] MEDS: Donepezil TAB* 5 MG PO SCH (09:01)
[2017-01-19] MEDS: Nystatin CREAM* 15 GM TUBE TOPICAL SCH ×3 (09:02→22:21)
[2017-01-19] MEDS: Metoprolol Tartrate TAB* 25 MG PO SCH (09:34)
[2017-01-19] MEDS: CMC:OMEGA-3 FATTY ACIDS (NF) 1,000 MG CAP PO SCH (09:34)
--- NOTE | 2017-01-19 10:08 | PN ---
Subjective Date of Service: 01/19/17 Interval History: This is a 76 yo gentleman with prior CVA and resulting expressive aphasia with associated dementia who was admitted yesterday with declining functional status after sustaining a fall ~ 10 days ago. He has recently been treated for a PNA by his PCP with Levaquin without improvement. No change noted overnight. Patient is alert and eating breakfast this am. Unable to express any concerns. Spoke with his via phone that reported that she needs additional help at home if this proves to be his new baseline. Objective Active Medications: Acetaminophen (Tylenol Tab*) 650 mg PO Q4H PRN PRN Reason: FEVER/PAIN Aspirin (Aspirin Low Dose Tab*) 81 mg PO DAILY [facility] Last Admin: 01/19/17 09:01 Dose: 81 mg Cholecalciferol (Vitamin D Tab*) [facility] Last Admin: 01/19/17 09:01 Dose: 2,000 units Clopidogrel Bisulfate (Plavix Tab*) [facility] Last Admin: 01/19/17 09:01 Dose: 75 mg Coenzyme Q10 (Coenzyme Q10 (Nf)) [address] [facility] Dextrose (D50w Syringe 50 Ml*) 12.5 gm IV PUSH .FOR FS < 60 - SS PRN PRN Reason: FS < 60 Docusate Sodium (Colace Cap*) 100 mg PO BID [facility] Donepezil HCl (Aricept Tab*) 10 mg PO DAILY [facility] Last Admin: 01/19/17 09:01 Dose: 10 mg Enoxaparin Sodium (Lovenox(*)) 40 mg SUBCUT Q24H [facility] Last Admin: 01/18/17 18:11 Dose: 40 mg Fish Oil (Fish Oil (Nf)) [facility] PRN Reason: Protocol Last Admin: 01/19/17 09:34 Dose: 2,000 mg Insulin Human Lispro (Humalog*) 0 units SUBCUT AC [facility] PRN Reason: Protocol Last Admin: 01/19/17 09:01 Dose: 2 units Metoprolol Tartrate (Lopressor Tab*) 25 mg PO QAM [facility] Last Admin: 01/19/17 09:34 Dose: 25 mg Nystatin (Nystatin Cream*) 1 applic TOPICAL TID [facility] Last Admin: 01/19/17 09:02 Dose: 1 apply Ondansetron HCl (Zofran Inj*) 4 mg IV Q6H PRN PRN Reason: NAUSEA Polyethylene Glycol/Electrolytes (Miralax*) 17 gm PO DAILY [facility] Senna (Senokot Tab*) 1 tab PO BEDTIME [facility] Vital Signs: Temp Pulse Resp BP Pulse Ox 98.1 F 82 18 135/54 100 01/19/17 07:26 01/19/17 07:26 01/19/17 07:26 01/19/17 09:34 01/19/17 07:26 Appearance: Elderly gentleman in NAD. Alert, but not conversant. Respiratory: Symmetrical Chest Expansion and Respiratory Effort, Clear to Auscultation Cardiovascular: NL Sounds; No Murmurs; No JVD, RRR Abdominal: NL Sounds; No Tenderness; No Distention Extremities: No Edema Skin: No Rash or Ulcers Neurological: - - alert, unable to assess orientation Result Diagrams: 01/19/17 06:08 01/19/17 06:09 Additional Lab and Data: . Diagnostic Imaging: CT brain - NAD CXR - L basilar atelectasis v consolidation Overnight pulse ox - lowest 83% MRI brain - pending Assess/Plan/Problems-Billing Assessment: This is a 76 yo gentleman with a prior CVA with resulting expressive aphasia and associated dementia who fell ~10 days ago and has a rather significant decline in functional status since that time. - Patient Problems (1) Altered mental status Comment: Etiology is not certain At baseline he is able to ambulate and participate in his care, which has not been the case in ~10 days No significant metabolic derangements noted CT brain shows nothing acute Treated for PNA with Levaquin, which may have contributed to increased confusion , today is day 7 of abx, no further treatment necessary at this time MRI brain pending to eval for new infarct (2) Pneumonia Comment: No cough, fever or leukocytosis at this time Completed 7 days of Levaquin Discontinue abx (3) Dementia Comment: Likely vascular type Mod to severe (4) History of CVA (cerebrovascular accident) Comment: With expressive aphasia (5) Non-insulin dependent type 2 diabetes mellitus Comment: Metformin held Covering with SS Humalog Check HgbA1c (6) DNR (do not resuscitate) (7) DVT prophylaxis Comment: Lovenox SQ Status and Disposition: Transition to inpatient. MRI pending. Palliative consult initiated. would very much like to take him home but will need additional equipment at help at home to accommodate his needs.
[2017-01-19] MEDS: Coenzyme Q10 (NF) ** ENTER STREGNTH IN LABEL DIRECTIONS PO SCH (11:07)
[2017-01-19] MEDS: Docusate CAP* 100 MG PO SCH ×2 (12:55→22:21)
[2017-01-19] MEDS: Polyethylene Glycol 3350* 17 GM PACKET PO SCH (12:55)
--- NOTE | 2017-01-19 15:02 | CONS ---
PALLIATIVE CARE CONSULTATION REPORT: DATE OF CONSULTATION: 01/19/2017. PRIMARY CARE PHYSICIAN: Darío Linton MD. REFERRING PHYSICIAN FOR CONSULTATION: FERNANDA Ortega. HOSPITAL COURSE: This is a 76-year-old male with a past medical history of moderate dementia with CVA and expressive aphasia, who presented to the emergency room with altered mental status on the . The Aliza provides all of the history and she states that the patient has been doing relatively well with a gradual expected decline from his dementia. He has been able to walk independently, he had been feeding himself, and having some of verbal interaction. 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 He was feeding himself. He was needing more assistance with walking at that time but otherwise doing relatively well. He had his routine evaluation physical on the with Dr. Linton and was diagnosed with bronchitis, pneumonia, and that time he was started on Levaquin. Since then, he has been sleeping a lot more and yesterday morning she states she could not wake him up. He could not stand , when she was eventually able to wake him up, and thus called the EMS for further evaluation. Normally, he wakes easily and says hello and gives her a kiss, and so this is a significant drastic change in his mental status. Per the nursing staff, he was alert this morning, feeding himself. On my encounter , he was more somnolent, but did wake up his sternal rub and seemed to be sleeping intermittently, but was more alert than initially. The states he is very friendly, says "Hi, how are you?" but mostly is unable to answer questions appropriately. The patient is unable to answer any questions about pain. He is able to tell me his name. Otherwise, remaining review of systems unable to be obtained. In the hospital course, the patient has had a chest x- ray, head CT, an overnight pulse oximeter, that did not stay on, and he has an MRI pending. PAST MEDICAL HISTORY: 1. Dementia, moderate. 2. Diabetes. 3. History of stroke in 2012 with an expressive aphasia. 4. Coronary artery disease status post PCI. 5. Hypertension. 6. History of perforated bowel. 7. History of depression with suicidality. 8. History of vasovagal syncope. MEDICATIONS: 1. Tylenol 650 mg every 4 hours as needed. 2. Aspirin 81 mg daily. 3. Vitamin D 2000 units daily. 4. Plavix 75 mg daily. 5. Coenzyme Q 1 cap p.o. daily. 6. Colace 100 mg p.o. b.i.d. 7. Aricept 10 mg daily. 8. Lovenox 20 mg subcu daily. 9. Lispro sliding scale. 10. Metoprolol 25 mg in the morning. 11. Nystatin topical t.i.d. 12. [place] 3 fatty acid 2000 in the morning. 13. Zofran every 4 hours as needed. 14. MiraLAX daily. 15. Senna at bedtime. ALLERGIES: NIACIN, SULFA, MEPERIDINE, PROMETHAZINE, and CONTRAST DYE. SOCIAL HISTORY: The patient lives at home with his Aliza, his healthcare proxy. He has 2 grown sons from a prior marriage, Howie is the one who he sees frequently. 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 No history of tobacco, alcohol, or illicit drug use. His MOLST form is a DNR with a trial intubation. FAMILY HISTORY: Reviewed and noncontributory. REVIEW OF SYSTEMS: As mentioned, unable to obtain due to the patient's altered mental status. PHYSICAL EXAMINATION: GENERAL: In no acute distress. Does wake to tactile stimulation. He is able to tell me his name. He is able to follow commands. VITAL SIGNS: Temp 98.1, pulse 79, respiratory rate is 19, oxygen saturation 96 % on room air, blood pressure is 100/86. HEENT: Pupils are equal and reactive, anicteric. Head: Normocephalic. Oropharynx, mucous membranes dry. NECK: Supple. RESPIRATORY: Diminished breath sounds. No wheezing, rhonchi, or rales. CARDIAC: Regular rate and rhythm. Soft systolic murmur heard throughout. ABDOMEN: Soft, nontender, nondistended. EXTREMITIES: No clubbing, cyanosis, or edema. +1 DP. NEUROLOGIC: Alert and oriented x1. Weakened upper and lower muscles, symmetric , negative pronator drift. LABORATORY DATA: White count 7.5, hemoglobin 13, hematocrit 39, platelets 134, INR 0.99, sodium 137, potassium 3.5, chloride 109, bicarb 21, BUN 13, creatinine 0.92, albumin is 3.9, B12 is 267. TSH is 1.68. RADIOGRAPHIC DATA: Head CT, no acute intracranial pathology, diffuse involutional change with chronic small vessel ischemic changes. Chest x-ray low lung volumes with persistent left basilar atelectasis versus consolidation. ASSESSMENT AND RECOMMENDATION: This is a 76-year-old male with the past medical history of moderate dementia and stroke with expressive aphasia, who presents to the emergency room with acute on chronic decline in his mental status, including somnolence and inability to ambulate. His mental status seems to wax and wane, now with persistent somnolence; however, this morning he was feeding himself breakfast without any issue. I am concerned about possibly underlying obstructive sleep apnea with CO2 retention contributing to his somnolence. It is also possibly he was having an adverse reaction to the fluoroquinolone, that he was started on for his pneumonia and he has received day #7 of that today his final dose. I agree with looking into reversible causes of his altered mental status and will be following up with the MRI as well, the patient at this time is not participating with physical therapy due to his somnolent state. The states she would not able to care for him if we cannot stand and transfer. At this time, he is currently a Adal lift and cannot even roll from side to side in the bed himself. I discussed rehab, [facility] if he wakes up enough to participate. If he continues to have significant somnolence then I would reevaluate for hospice eligibility, but at this time, I would continue to look for reversible causes. If the patient again becomes more somnolent, I would recommend getting an ABG on his and possibly an ammonia level. I also think that once the patient's mental status is more clearly defined, then I would readdress the trial intubation as well. Thank you for this consultation. I will follow along with you. PATIENT TIME: Greater than 90 minutes was spent doing the consultation, more than half the time was spent in direct patient contact. CC: Darío Linton MD.* [id number]/[facility] #: [id number] [facility] CENTERJanki
[2017-01-19] MEDS: Enoxaparin(*) 40 MG/0.4 ML SYR SUBCUT SCH (17:50)
[2017-01-19] MEDS ORDERED: Haloperidol INJ IV/IM* 5 MG/ML AMP IV ONE (21:32)
[2017-01-19] MEDS: Senna TAB PO SCH (22:21)
[2017-01-20] MEDS: Coenzyme Q10 (NF) ** ENTER STREGNTH IN LABEL DIRECTIONS PO SCH (09:07)
[2017-01-20] MEDS: Insulin LISPRO* 1 UNITS UNIT SUBCUT SCH ×3 (09:14→17:09)
[2017-01-20] MEDS: Cholecalciferol TAB* 1000 UNITS PO SCH (09:14)
[2017-01-20] MEDS: Aspirin Low Dose CHEW TAB* 81 MG PO SCH (09:14)
[2017-01-20] MEDS: CMC:OMEGA-3 FATTY ACIDS (NF) 1,000 MG CAP PO SCH (09:14)
[2017-01-20] MEDS: Docusate CAP* 100 MG PO SCH ×2 (09:15→21:06)
[2017-01-20] MEDS: Donepezil TAB* 5 MG PO SCH (09:15)
[2017-01-20] MEDS: Metoprolol Tartrate TAB* 25 MG PO SCH (09:15)
[2017-01-20] MEDS: Clopidogrel TAB* 75 MG PO SCH (09:15)
[2017-01-20] MEDS: Polyethylene Glycol 3350* 17 GM PACKET PO SCH (09:15)
[2017-01-20] MEDS: Nystatin CREAM* 15 GM TUBE TOPICAL SCH ×3 (09:23→21:07)
--- NOTE | 2017-01-20 11:43 | PN ---
Subjective Date of Service: 01/20/17 Interval History: Patient was restless overnight, pulling at lines and other equipment. Required one dose of Haldol. He was alert this am, ate breakfast and has been cooperative throughout the rest of the day thus far. Objective Active Medications: Acetaminophen (Tylenol Tab*) 650 mg PO Q4H PRN PRN Reason: FEVER/PAIN Aspirin (Aspirin Low Dose Tab*) 81 mg PO DAILY [facility] Last Admin: 01/20/17 09:14 Dose: 81 mg Cholecalciferol (Vitamin D Tab*) [facility] Last Admin: 01/20/17 09:14 Dose: 2,000 units Clopidogrel Bisulfate (Plavix Tab*) [facility] Last Admin: 01/20/17 09:15 Dose: 75 mg Coenzyme Q10 (Coenzyme Q10 (Nf)) 1 cap PO [facility] Last Admin: 01/20/17 09:07 Dose: Not Given Dextrose (D50w Syringe 50 Ml*) 12.5 gm IV PUSH .FOR FS < 60 - SS PRN PRN Reason: FS < 60 Docusate Sodium (Colace Cap*) 100 mg PO BID [facility] Last Admin: 01/20/17 09:15 Dose: 100 mg Donepezil HCl (Aricept Tab*) 10 mg PO DAILY [facility] Last Admin: 01/20/17 09:15 Dose: 10 mg Enoxaparin Sodium (Lovenox(*)) 40 mg SUBCUT Q24H [facility] Last Admin: 01/19/17 17:50 Dose: 40 mg Fish Oil (Fish Oil (Nf)) 2,000 mg PO [facility] PRN Reason: Protocol Last Admin: 01/20/17 09:14 Dose: 2,000 mg Insulin Human Lispro (Humalog*) 0 units SUBCUT AC [facility] PRN Reason: Protocol Last Admin: 01/20/17 09:14 Dose: 2 units Metoprolol Tartrate (Lopressor Tab*) [facility] Last Admin: 01/20/17 09:15 Dose: 25 mg Nystatin (Nystatin Cream*) 1 applic TOPICAL TID [facility] Last Admin: 01/20/17 09:23 Dose: 1 apply Ondansetron HCl (Zofran Inj*) 4 mg IV Q6H PRN PRN Reason: NAUSEA Polyethylene Glycol/Electrolytes (Miralax*) 17 gm PO DAILY [facility] Last Admin: 01/20/17 09:15 Dose: 17 gm Senna (Senokot Tab*) 1 tab PO BEDTIME [facility] Last Admin: 01/19/17 22:21 Dose: 1 tab Vital Signs: Temp Pulse Resp BP Pulse Ox 98.6 F 75 20 95/55 99 01/20/17 11:08 01/20/17 11:08 01/20/17 11:08 01/20/17 11:08 01/20/17 11:08 Appearance: Elderly gentleman who is resting, but easily arousable accompanied by his Respiratory: Symmetrical Chest Expansion and Respiratory Effort, Clear to Auscultation Cardiovascular: NL Sounds; No Murmurs; No JVD, RRR Extremities: No Edema Skin: No Rash or Ulcers Neurological: - - alert, participates in exam and answers some yes/no questions appropriately Result Diagrams: 01/19/17 06:08 01/19/17 06:09 Additional Lab and Data: . Diagnostic Imaging: CT brain - NAD CXR - L basilar atelectasis v consolidation Overnight pulse ox - lowest 83% MRI brain - pending Assess/Plan/Problems-Billing Assessment: This is a 76 yo gentleman with a prior CVA with resulting expressive aphasia and associated dementia who fell ~10 days ago and has a rather significant decline in functional status since that time. - Patient Problems (1) Altered mental status Comment: Etiology is not certain At baseline he is able to ambulate and participate in his care, which has not been the case in ~10 days No significant metabolic derangements noted CT brain shows nothing acute Treated for PNA with Levaquin, which may have contributed to increased confusion , he has completed 7d of therapy and Levaquin was discontinued MRI brain pending to eval for new infarct Appreciate palliative consult (2) Pneumonia Comment: No cough, fever or leukocytosis at this time Completed 7 days of Levaquin Discontinued abx (3) Dementia Comment: Likely vascular type Mod to severe (4) History of CVA (cerebrovascular accident) Comment: With expressive aphasia (5) Non-insulin dependent type 2 diabetes mellitus Comment: Metformin held Covering with SS Humalog HgbA1c 8.0% (6) DNR (do not resuscitate) (7) DVT prophylaxis Comment: Lovenox SQ Status and Disposition: Inpatient. MRI pending. Patient's is agreeable to consider [facility] and if he remains unchanged will pursue home Hospice at that time
[2017-01-20] MEDS ORDERED: Magnesium Hydroxide LIQ* 30 ML UDC PO ONE (14:04)
--- NOTE | 2017-01-20 16:11 | RAD ---
INDICATION: Altered mental status. Question TIA. History of prior CVA. Dementia. COMPARISON: CT brain January 10, 2017 TECHNIQUE: sagittal T1 FLAIR, axial diffusion, axial T1 FLAIR, axial T2, axial T2 FLAIR, and SWI images were acquired. The examination is mildly limited due to motion artifact. FINDINGS: Craniocervical junction: The craniocervical junction appears normal. Ventricles/sulci: There is advanced cortical atrophy with compensatory dilatation of the CSF spaces. Brain parenchyma: There are T2-weighted hyperintensities in the periventricular and subcortical white matter consistent with chronic microvascular ischemia. Intracranial hemorrhage: There is no intracranial hemorrhage. Extra-axial spaces: There are no extra-axial fluid collections or masses. Orbits: There are no MR abnormalities of the orbital structures. Paranasal sinuses/mastoid: The paranasal sinuses are clear. The mastoid air cells are well aerated.. Vascular: No abnormalities are seen. Other: None IMPRESSION: ADVANCED CORTICAL ATROPHY WITH CHRONIC MICROVASCULAR ISCHEMIC CHANGE. NO ACUTE FINDINGS.
[2017-01-20] MEDS: Enoxaparin(*) 40 MG/0.4 ML SYR SUBCUT SCH (17:09)
[2017-01-20] MEDS: Senna TAB PO SCH (21:06)
[2017-01-21 06:09] LABS: Hematocrit 41 % (42-52); Hemoglobin 13.9 g/dl (14.0-18.0); Mean Corpuscular HGB Conc 34 g/dl (31-36); Mean Corpuscular Hemoglobin 32 pg (27-31); Mean Corpuscular Volume 94 fL (80-94); Mean Platelet Volume 9 um3 (7.4-10.4); Red Blood Count 4.35 10^6/ul (4.0-5.4); Red Cell Distribution Width 14 % (10.5-15); White Blood Count 11.9 10^3/ul (3.5-10.8)
[2017-01-21 06:12] LABS: Add Diff/Slide Review? Slide Review Added; Comments Flag Yes
[2017-01-21 06:25] LABS: BUN/Creatinine Ratio 17.9 (8-20); Calcium 9.1 mg/dL (8.6-10.3); EGFR African American 99.7 (>60); EGFR Non-African American 77.5 (>60)
[2017-01-21] MEDS: Donepezil TAB* 5 MG PO SCH (08:28)
[2017-01-21] MEDS: Clopidogrel TAB* 75 MG PO SCH (08:28)
[2017-01-21] MEDS: CMC:OMEGA-3 FATTY ACIDS (NF) 1,000 MG CAP PO SCH (08:28)
[2017-01-21] MEDS: Docusate CAP* 100 MG PO SCH ×2 (08:28→21:04)
[2017-01-21] MEDS: Aspirin Low Dose CHEW TAB* 81 MG PO SCH (08:28)
[2017-01-21] MEDS: Cholecalciferol TAB* 1000 UNITS PO SCH (08:28)
[2017-01-21] MEDS: Metoprolol Tartrate TAB* 25 MG PO SCH (08:28)
[2017-01-21] MEDS: Polyethylene Glycol 3350* 17 GM PACKET PO SCH (08:28)
[2017-01-21] MEDS: Insulin LISPRO* 1 UNITS UNIT SUBCUT SCH ×3 (08:29→17:18)
[2017-01-21] MEDS: Coenzyme Q10 (NF) ** ENTER STREGNTH IN LABEL DIRECTIONS PO SCH (08:36)
[2017-01-21] MEDS: Nystatin CREAM* 15 GM TUBE TOPICAL SCH ×2 (11:57→15:01)
--- NOTE | 2017-01-21 14:12 | PN ---
Subjective Date of Service: 01/21/17 Interval History: Patient did quite well with PT this am and ambulated later in the day with nursing staff. No acute complaints. Objective Active Medications: Acetaminophen (Tylenol Tab*) 650 mg PO Q4H PRN PRN Reason: FEVER/PAIN Aspirin (Aspirin Low Dose Tab*) 81 mg PO DAILY [facility] Last Admin: 01/21/17 08:28 Dose: 81 mg Cholecalciferol (Vitamin D Tab*) 2,000 units PO QAM [facility] Last Admin: 01/21/17 08:28 Dose: 2,000 units Clopidogrel Bisulfate (Plavix Tab*) 75 mg PO QAM [facility] Last Admin: 01/21/17 08:28 Dose: 75 mg Coenzyme Q10 (Coenzyme Q[facility] (Nf)) [facility] Last Admin: 01/21/17 08:36 Dose: Not Given Dextrose (D50w Syringe 50 Ml*) 12.5 gm IV PUSH .FOR FS < 60 - SS PRN PRN Reason: FS < 60 Docusate Sodium (Colace Cap*) 100 mg PO BID [facility] Last Admin: 01/21/17 08:28 Dose: 100 mg Donepezil HCl (Aricept Tab*) 10 mg PO DAILY [facility] Last Admin: 01/21/17 08:28 Dose: 10 mg Enoxaparin Sodium (Lovenox(*)) 40 mg SUBCUT Q24H [facility] Last Admin: 01/20/17 17:09 Dose: 40 mg Fish Oil (Fish Oil (Nf)) 2,000 [facility] PRN Reason: Protocol Last Admin: 01/21/17 08:28 Dose: 2,000 mg Insulin Human Lispro (Humalog*) 0 units SUBCUT AC [facility] PRN Reason: Protocol Last Admin: 01/21/17 11:50 Dose: 6 units Nystatin (Nystatin Cream*) 1 applic TOPICAL TID [facility] Last Admin: 01/21/17 11:57 Dose: 1 apply Ondansetron HCl (Zofran Inj*) 4 mg IV Q6H PRN PRN Reason: NAUSEA Polyethylene Glycol/Electrolytes (Miralax*) 17 gm PO DAILY [facility] Last Admin: 01/21/17 08:28 Dose: 17 gm Senna (Senokot Tab*) 1 tab PO BEDTIME [facility] Last Admin: 01/20/17 21:06 Dose: 1 tab Vital Signs: Temp Pulse Resp BP Pulse Ox 97.3 F 69 20 112/66 99 01/21/17 07:35 01/21/17 07:35 01/21/17 08:00 01/21/17 07:35 01/21/17 07:35 Appearance: Elderly gentleman in NAD Respiratory: Symmetrical Chest Expansion and Respiratory Effort, Clear to Auscultation Cardiovascular: NL Sounds; No Murmurs; No JVD, RRR Extremities: No Edema Skin: No Rash or Ulcers Neurological: - - alert, confused Result Diagrams: 01/21/17 05:25 01/21/17 05:25 Additional Lab and Data: . Diagnostic Imaging: CT brain - NAD CXR - L basilar atelectasis v consolidation Overnight pulse ox - lowest 83% MRI brain - no acute or subacute infarct, atrophy and chronic small vessel disease Assess/Plan/Problems-Billing Assessment: This is a 76 yo gentleman with a prior CVA with resulting expressive aphasia and associated dementia who fell ~10 days ago and has a rather significant decline in functional status since that time. - Patient Problems (1) Altered mental status Comment: Improving, he was able to participate with PT this am Etiology is not certain At baseline he is able to ambulate and participate in his care, which has not been the case in ~10 days No significant metabolic derangements noted CT brain shows nothing acute MRI shows no acute pathology Treated for PNA with Levaquin, which may have contributed to increased confusion , he has completed 7d of therapy and Levaquin was discontinued MRI brain pending to eval for new infarct Appreciate palliative consult (2) Pneumonia Comment: No cough, fever or leukocytosis at this time Completed 7 days of Levaquin Discontinued abx (3) Dementia Comment: Likely vascular type Mod to severe (4) History of CVA (cerebrovascular accident) Comment: With expressive aphasia (5) Non-insulin dependent type 2 diabetes mellitus Comment: Metformin held Covering with SS Humalog HgbA1c 8.0% (6) DNR (do not resuscitate) (7) DVT prophylaxis Comment: Lovenox SQ Status and Disposition: Inpatient. Likely dc tomorrow to [facility] or possibly home if he continues to ambulate well.
[2017-01-21] MEDS: Enoxaparin(*) 40 MG/0.4 ML SYR SUBCUT SCH (17:19)
--- NOTE | 2017-01-21 20:33 | RAD ---
INDICATION: Fall. Neck pain. COMPARISON: CT cervical spine August 23, 2016 TECHNIQUE: Noncontrast axial source images was performed from the skull base to the thoracic inlet. Coronal and and sagittal reformatted images were generated. FINDINGS: Vertebrae: There is no fracture or acute focal bony lesion. There is multilevel midcervical spurring and there is multilevel facet arthropathy. Alignment: The craniocervical junction appears normal. The cervical vertebrae are normally aligned. Central Canal: There are no significant CT abnormalities of the central canal or foramina. MR imaging is a more sensitive method to evaluate the canal and foramina. Intervertebral disc spaces: The disc spaces are maintained. Brain: The visualized brain appears unremarkable. Soft tissues: The visualized soft tissue elements of the neck are unremarkable. The prevertebral soft tissues appear normal. The lung apices are clear. IMPRESSION: MILD MULTILEVEL OSTEOARTHRITIC CHANGE. NO ACUTE FINDINGS
--- NOTE | 2017-01-21 20:36 | RAD ---
INDICATION: Intracranial injury. Fall. COMPARISON: CT brain January 18, 2017 TECHNIQUE: Noncontrast axial source images were acquired from the skull base to the vertex. FINDINGS: Ventricles/sulci: There is diffuse cortical atrophy with compensatory dilatation of the CSF spaces. Brain parenchyma: There is periventricular and subcortical white matter change compatible with chronic ischemia. Intracranial hemorrhage:None. Extra-axial spaces: There are no abnormal extra axial fluid collections or evidence of extra-axial mass. Calvarium: There is no calvarial fracture or other calvarial abnormality. Scalp: There is no evidence of scalp or extracalvarial soft tissue abnormality. Paranasal sinuses/mastoid: The paranasal sinuses and mastoid air cells are clear. Other: None. IMPRESSION: ADVANCED CORTICAL ATROPHY WITH CHRONIC MICROVASCULAR ISCHEMIC CHANGES. NO ACUTE FINDINGS OR INTERVAL CHANGES SINCE JANUARY 18, 2017
[2017-01-21] MEDS: Nystatin TOP POWDER* 15 GM BTL TOPICAL SCH (21:03)
[2017-01-21] MEDS: Senna TAB PO SCH (21:04)
[2017-01-22] MEDS: Donepezil TAB* 5 MG PO SCH (09:29)
[2017-01-22] MEDS: Clopidogrel TAB* 75 MG PO SCH (09:37)
[2017-01-22] MEDS: Aspirin Low Dose CHEW TAB* 81 MG PO SCH (09:39)
[2017-01-22] MEDS: Docusate CAP* 100 MG PO SCH ×2 (09:41→21:07)
[2017-01-22] MEDS: CMC:OMEGA-3 FATTY ACIDS (NF) 1,000 MG CAP PO SCH (09:41)
[2017-01-22] MEDS: Coenzyme Q10 (NF) ** ENTER STREGNTH IN LABEL DIRECTIONS PO SCH (09:42)
[2017-01-22] MEDS: Cholecalciferol TAB* 1000 UNITS PO SCH (09:43)
[2017-01-22] MEDS: Insulin LISPRO* 1 UNITS UNIT SUBCUT SCH ×3 (09:46→18:26)
[2017-01-22] MEDS: Nystatin TOP POWDER* 15 GM BTL TOPICAL SCH ×3 (09:46→21:07)
[2017-01-22] MEDS: Polyethylene Glycol 3350* 17 GM PACKET PO SCH (09:47)
--- NOTE | 2017-01-22 11:44 | PN ---
Subjective Date of Service: 01/22/17 Interval History: Patient sustained a fall last night, trying to get out of bed. CT brain and Cspine neg. This am he is acting well. Still cooperating with PT, minimal assistance with ambulation and able to back up in to chair today. His noted that starting yesterday afternoon and again today he is coughing with thin liquids and some foods which is a new finding. LOC improved, no additional neurologic findings. Objective Active Medications: Acetaminophen (Tylenol Tab*) 650 mg PO Q4H PRN PRN Reason: FEVER/PAIN Last Admin: 01/22/17 09:43 Dose: 650 mg Aspirin (Aspirin Low Dose Tab*) 81 mg PO DAILY [facility] Last Admin: 01/22/17 09:39 Dose: 81 mg Cholecalciferol (Vitamin D Tab*) 2,000 units PO QAM [facility] Last Admin: 01/22/17 09:43 Dose: 2,000 units Clopidogrel Bisulfate (Plavix Tab*) 75 mg PO QAM [facility] Last Admin: 01/22/17 09:37 Dose: 75 mg Coenzyme Q10 (Coenzyme Q10 (Nf)) 1 cap PO QAM [facility] Last Admin: 01/22/17 09:42 Dose: Not Given Dextrose (D50w Syringe 50 Ml*) 12.5 gm IV PUSH .FOR FS < 60 - SS PRN PRN Reason: FS < 60 Docusate Sodium (Colace Cap*) 100 mg PO BID [facility] Last Admin: 01/22/17 09:41 Dose: Not Given Donepezil HCl (Aricept Tab*) 10 mg PO DAILY [facility] Last Admin: 01/22/17 09:29 Dose: 10 mg Enoxaparin Sodium (Lovenox(*)) 40 mg SUBCUT Q24H [facility] Last Admin: 01/21/17 17:19 Dose: 40 mg Fish Oil (Fish Oil (Nf)) 2,000 mg PO QAM [facility] PRN Reason: Protocol Last Admin: 01/22/17 09:41 Dose: Not Given Fluconazole (Diflucan 100 Mg Tab*) 100 mg PO DAILY [facility] Stop: 01/25/17 09:01 Insulin Human Lispro (Humalog*) 0 units SUBCUT AC [facility] PRN Reason: Protocol Last Admin: 01/22/17 09:46 Dose: 2 units Nystatin (Nystatin Top Powder*) 1 applic TOPICAL TID [facility] Last Admin: 01/22/17 09:46 Dose: 1 applic Ondansetron HCl (Zofran Inj*) 4 mg IV Q6H PRN PRN Reason: NAUSEA Polyethylene Glycol/Electrolytes (Miralax*) 17 gm PO DAILY [facility] Last Admin: 01/22/17 09:47 Dose: 17 gm Senna (Senokot Tab*) 1 tab PO BEDTIME [facility] Last Admin: 01/21/17 21:04 Dose: 1 tab Vital Signs: Temp Pulse Resp BP Pulse Ox 98.3 F 109 20 125/71 99 01/22/17 07:33 01/22/17 07:33 01/22/17 07:33 01/22/17 07:33 01/22/17 07:33 Appearance: Well appearing elderly, gentleman sitting up in a chair. Accompanied by his . In NAD Respiratory: Symmetrical Chest Expansion and Respiratory Effort, Clear to Auscultation Cardiovascular: NL Sounds; No Murmurs; No JVD, RRR Abdominal: NL Sounds; No Tenderness; No Distention Extremities: No Edema Skin: No Rash or Ulcers Neurological: - - alert, can follow most one step commands Result Diagrams: 01/21/17 05:25 01/21/17 05:25 Additional Lab and Data: . Diagnostic Imaging: CT brain - NAD CXR - L basilar atelectasis v consolidation Overnight pulse ox - lowest 83% MRI brain - no acute or subacute infarct, atrophy and chronic small vessel disease CT brain - NAD CT Cspine - no fracture Assess/Plan/Problems-Billing Assessment: This is a 76 yo gentleman with a prior CVA with resulting expressive aphasia and associated dementia who fell ~10 days ago and has a rather significant decline in functional status since that time. - Patient Problems (1) Altered mental status Comment: Improving, he is now able to participate with PT and ambulating with minimal assistance Dysphagia is new, pending swallow evaluation Etiology is not certain At baseline he is able to ambulate and participate in his care, which has not been the case in ~10 days No significant metabolic derangements noted CT brain shows nothing acute MRI shows no acute pathology Treated for PNA with Levaquin, which may have contributed to increased confusion , he has completed 7d of therapy and Levaquin was discontinued MRI brain pending to eval for new infarct Appreciate palliative consult Patient's would now like to take him home since he is ambulating, she requires additional equipment at home to be able to adequately care for him including a hospital bed to assist in frequent repositioning and decrease risk of aspiration (2) Pneumonia Comment: No cough, fever or leukocytosis at this time Completed 7 days of Levaquin Discontinued abx (3) Dementia Comment: Likely vascular type Mod to severe (4) History of CVA (cerebrovascular accident) Comment: With expressive aphasia (5) Non-insulin dependent type 2 diabetes mellitus Comment: Metformin held Covering with SS Humalog HgbA1c 8.0% (6) DNR (do not resuscitate) (7) DVT prophylaxis Comment: Lovenox SQ Status and Disposition: Inpatient. Likely dc home tomorrow with his , pending swallow evaluation
[2017-01-22] MEDS ORDERED: Bisacodyl SUPP* 10 MG SUPP PR ONE (11:48)
[2017-01-22] MEDS: Enoxaparin(*) 40 MG/0.4 ML SYR SUBCUT SCH (18:26)
[2017-01-22] MEDS: Senna TAB PO SCH (21:07)
[2017-01-23] MEDS ORDERED: Fluconazole 100 MG TAB* TAB PO SCH (09:00)
[2017-01-23] MEDS: Insulin LISPRO* 1 UNITS UNIT SUBCUT SCH ×2 (09:25→13:11)
[2017-01-23] MEDS: Aspirin Low Dose CHEW TAB* 81 MG PO SCH (09:46)
[2017-01-23] MEDS: Donepezil TAB* 5 MG PO SCH (09:46)
[2017-01-23] MEDS: Cholecalciferol TAB* 1000 UNITS PO SCH (09:46)
[2017-01-23] MEDS: CMC:OMEGA-3 FATTY ACIDS (NF) 1,000 MG CAP PO SCH (09:46)
[2017-01-23] MEDS: Docusate CAP* 100 MG PO SCH (09:46)
[2017-01-23] MEDS: Polyethylene Glycol 3350* 17 GM PACKET PO SCH (09:47)
[2017-01-23] MEDS: Nystatin TOP POWDER* 15 GM BTL TOPICAL SCH ×2 (09:47→14:58)
[2017-01-23] MEDS: Coenzyme Q10 (NF) ** ENTER STREGNTH IN LABEL DIRECTIONS PO SCH (09:47)
[2017-01-23] MEDS: Clopidogrel TAB* 75 MG PO SCH (09:47)
[2017-01-23 11:27] VITALS: BP 114/58
--- NOTE | 2017-01-23 23:35 | DS ---
DISCHARGE SUMMARY: DATE OF ADMISSION: 01/18/17 DATE OF DISCHARGE: 01/23/17 PRIMARY CARE PROVIDER: Darío Linton MD CONSULTING PALLIATIVE CARE PHYSICIAN: Kristin Oakes MD DISCHARGING PROVIDER: FERNANDA Melvin SUPERVISING PHYSICIAN: Dr. Chaka Cobb.* (DICTATED BY FERNANDA MELVIN) PRIMARY DISCHARGE DIAGNOSES: 1. Altered mental status - uncertain etiology, perhaps due to recent pneumonia or Levaquin use, but seems to have mostly resolved at this time. 2. Recent pneumonia - antibiotics completed. 3. Dysphagia - requiring nectar thick liquids and mechanical ground solids. 4. Tinea cruris. SECONDARY DISCHARGE DIAGNOSES: 1. Severe dementia - likely vascular type. 2. History of cerebrovascular accident with an expressive aphasia. 3. [id number] diabetes with hemoglobin A1c of 8%. DISCHARGE MEDICATIONS: 1. Vitamin D 2000 units p.o. daily. 2. Plavix 75 mg p.o. daily. 3. Coenzyme Q10 200 mg p.o. daily. 4. Aricept 10 mg p.o. daily. 5. Metoprolol tartrate 25 mg p.o. daily. 6. Nystatin powder apply topically 3 times daily. 7. [place]-3 fatty acids 2000 mg p.o. daily. 8. Metformin 1000 mg p.o. daily. MEDICATION CHANGES: 1. Discontinue Keflex. 2. Discontinue Levaquin. 3. Use nystatin powder. HOSPITAL IMAGIN. CT of the brain shows no intracranial pathology, but diffuse involutional change with chronic small vessel ischemic changes. 2. Chest x-ray shows low lung volume with left basilar atelectasis versus consolidation. 3. MRI of brain shows advanced cortical atrophy with chronic microvascular ischemic change, but no acute findings. 4. Repeat CT of the brain shows no acute findings. 5. CT of the cervical spine shows no acute findings. 6. Overnight pulse oximetry shows desaturations less than 89% for at least 30% of the study, which constituted approximately an hour and a half of time. HOSPITAL COURSE: This is a 76-year-old gentleman with a history of fairly advanced dementia and prior CVA that resulted in an expressive aphasia who presented to the emergency department due to concerns for significant functional decline. His baseline approximately 10 days prior to admission, the patient was able to ambulate independently and participate in his care, but the patient had been unable to ambulate and was sleeping the majority of the day. He was seen by his primary care provider with these concerns and treated for pneumonia with Levaquin. His noted no significant improvement in his presenting symptoms. In fact, she though that perhaps his mental status became worse. When he reached the emergency department, initial vitals were unremarkable as were initial labs showing no leukocytosis. Chemistry panel was within normal limits. Thyroid was checked and was normal at 1.68. Initial troponin was negative. He did have some left basilar atelectasis versus consolidation, but no clinical signs of pneumonia. The patient was subsequently admitted to the hospital initially for a period of observation due to change in functional status. Repeat labs again showed no significant metabolic derangements or evidence of infection. Initial CT imaging of the brain showed nothing acute and followup MRI of the brain did not show a new infarct or rather acute or subacute change that would explain his decline in mental status and subsequent functional status. The patient's was quite motivated to get him home if there were no reversible causes identified. For this reason, Palliative Care was consulted who suggested that a trial of subacute rehab be initiated and if his functional status remained quite poor, he would quality for hospice at a future date. On approximately hospital day #3, the patient's functional status improved to the point that he was able to participate with physical therapy and ambulate with near total independence with the use of a wheeled walker, which seemed to be near his baseline. His and nursing staff, however, noted that he seemed to develop some dysphagia, starting to cough after drinking thin liquids and some of his solids. He had no other associated neurologic symptoms. The patient underwent speech evaluation, who suggested nectar thick liquids and mechanical ground solids and the patient seems to do quite well with these recommendations. DISPOSITION AND FOLLOWUP PLAN: Now that the patient's ambulatory status has improved, the patient's would like to take him home rather than pursuing subacute rehab. A referral has been initiated to visiting nurse service. Physical therapy, occupational therapy and speech therapy would be recommended at home. Appropriate equipment so that his may be able to care for him at home has also been ordered at that time of discharge and the patient qualifies for night time oxygen, which has also been arranged at the time of discharge. The patient requires followup with his primary care provider within 1 week. No further antibiotic therapy appears to be indicated at this time. FERNANDA MELVIN CC: Darío Linton MD * [id number]/[facility] #: [id number] [facility] CENTERJanki
== END 2017-01-23 15:45 | disposition home health service (06) | DRG 947 ==
LOC: ED 11:03 → MEDTELE 16:42 → OBSVTOIN 01-19 10:04 → MED 01-21 19:01
PROVIDERS: ADMIT Hospitalist; ATTEND Internal Medicine
DX: R41.82 Altered mental status, unspecified (principal); J18.9 Pneumonia, unspecified organism; F01.50 Vascular dementia, unspecified severity, without behavioral disturbance, psychotic disturbance, mood disturbance, and anxiety; E11.9 Type 2 diabetes mellitus without complications; B35.6 Tinea cruris; F32.9 Major depressive disorder, single episode, unspecified; R13.10 Dysphagia, unspecified; T37.8X5A Adverse effect of other specified systemic anti-infectives and antiparasitics, initial encounter; I25.10 Atherosclerotic heart disease of native coronary artery without angina pectoris; N40.0 Benign prostatic hyperplasia without lower urinary tract symptoms; M19.90 Unspecified osteoarthritis, unspecified site; D75.89 Other specified diseases of blood and blood-forming organs; L03.012 Cellulitis of left finger; Z66 Do not resuscitate; Z91.81 History of falling; I69.320 Aphasia following cerebral infarction; Z87.01 Personal history of pneumonia (recurrent); Z95.5 Presence of coronary angioplasty implant and graft; Z83.3 Family history of diabetes mellitus; Z82.49 Family history of ischemic heart disease and other diseases of the circulatory system; Z88.2 Allergy status to sulfonamides; Z88.8 Allergy status to other drugs, medicaments and biological substances; Z91.041 Radiographic dye allergy status; Z79.84 Long term (current) use of oral hypoglycemic drugs; Z79.02 Long term (current) use of antithrombotics/antiplatelets
CPT/HCPCS: 36415; 70450; 70551; 71020; 72125; 80048; 80053; 81003; 82607; 82746; 83036; 83605; 84443; 84484; 85025; 85610; 87040; 93005; 94762; A9270-GY; G0378; G8996-GN-CK; G8997-GN-CK; G8998-GN-CK; J1630; J1650

== ENCOUNTER 2017-02-18 14:18 | Emergency (ER) | payer MEDICARE, OTHER ==
[2017-02-18 16:34] VITALS: BP 105/50
--- NOTE | 2017-02-18 16:35 | RAD ---
Indication: Bruising posterior RIGHT shoulder. Fall. Comparison: June 15, 2007 Technique: Internal rotation AP, external rotation Grashey, scapular Y views RIGHT shoulder Report: Bone density appears decreased throughout. Nonarticular appearing fracture of the distal clavicle with up to 2 cm inferior displacement of the distal clavicle and AC joint. The proximal fracture fragment appears to extend into the subcutaneous tissue plane within 0.7 cm of the skin surface likely violating the deltotrapezial fascia. Normal acromioclavicular and glenohumeral joint alignment. No additional fracture evident. Soft tissue swelling over the superior posterior aspect of the shoulder. Mild AC joint osteoarthritis and small inferior acromial bone spur. IMPRESSION: Nonarticular appearing fracture of the distal clavicle with up to 2 cm inferior displacement of the distal clavicle and AC joint. The proximal fracture fragment appears to extend into the subcutaneous tissue plane within 0.7 cm of the skin surface likely violating the deltotrapezial fascia.
--- NOTE | 2017-02-18 16:39 | RAD ---
Indication: Fall with RIGHT clavicle fracture. Neck pain and limited range of motion. Comparison: Thoracic spine radiographs of the same date. January 21, 2017 CT. Technique: AP and lateral views cervical spine Report: No cervical collar visualized. The cervical spine is obscured due to superimposed soft tissues below the C5 level limiting assessment however the lower cervical spine and cervicothoracic junction are well visualized on the thoracic spine exam of the same date. No cervical spine fracture evident. Negative for facet subluxation at any level. Unremarkable prevertebral soft tissue contours. Multilevel mild degenerative spondylosis and facet joint osteoarthritis. IMPRESSION: No radiographic evidence for cervical spine injury.
--- NOTE | 2017-02-18 16:41 | RAD ---
Indication: Pain following falls. Comparison: January 18, 2017 Technique: AP and lateral views thoracic spine. Report: Normal thoracic spine alignment. Negative for fracture. Multilevel thoracic degenerative spondylosis most prominent at the approximate T4-T5 through T6-T7 level moderate in severity. Unremarkable paraspinal soft tissue contours. Bilateral upper abdominal surgical clips. IMPRESSION: No radiographic evidence for traumatic thoracic spine injury.
--- NOTE | 2017-02-18 17:12 | UC ---
Shoulder Pain HPI - HPI Summary HPI Summary: HX OF ALZHEIMERS AND CVA; FALL YESTERDAY FROM GETTING OUT OF BED. TODAY WHILE GETTING HIM DRESSED, NOTICED BRUISING AROUND RIGHT SHOULDER. - History of Current Complaint Chief Complaint: UCUpperExtremity Stated Complaint: FELL SHOULDER/BACK INJURY Time Seen by Provider: 02/18/17 15:30 Hx Obtained From: Patient, Family/Master In Chancery Hx From Patient Unobtainable Due To: Dementia Onset/Duration: Sudden Onset, Lasting Days, Still Present Timing: Days Severity Initially: Moderate Severity Currently: Moderate Location Of Pain: Is Discrete @ - RIGHT SHOUDLER Character: Dull, Aching Associated Signs And Symptoms: Positive: Swelling, Bruising Related History: Dominant Hand Right - Risk Factors Non-Orthopedic Risk Factor: Negative DVT Risk Factors: Negative Septic Arthritis Risk Factor: Negative - Allergies/Home Medications Allergies/Adverse Reactions: Allergies Allergy/AdvReac Type Severity Reaction Status Date / Time Niacin Allergy Rash And Verified 02/18/17 14:52 Itching Sulfa Drugs Allergy Unknown Verified 02/18/17 14:52 Reaction Details Meperidine [From Demerol HCl] AdvReac Intermediate Hallucinati Verified 14:52 on Promethazine [From Phenergan] AdvReac Intermediate Hallucinati Verified 14:52 on contrast dye AdvReac Intermediate Hallucinati Uncoded 02/18/17 14:52 on Home Medications: Home Medications Acetaminophen [Hm Pain Relief] 650 mg PO Q6H PRN 02/18/17 [History Confirmed ] PMH/Surg Hx/FS Hx/Imm Hx Previously Healthy: Yes - Surgical History Surgical History: Yes Surgery Procedure, Year, and Place: hernia repair 2002, perforated bowel 2003 all umbilical area, [facility] laminectomy, Knee surgeries bilateral, two surgeries on right foot,hiatal hernia repair. s, removal of infected tissue from bed sores and surgical site - Family History Known Family History: Positive: Cardiac Disease - father D in 60s., Diabetes - Social History Occupation: Disabled Lives: With Family Alcohol Use: None Alcohol Amount: ONCE A WEEK OR EOW Substance Use Type: None Smoking Status (MU): Never Smoked Tobacco - Immunization History Most Recent Influenza Vaccination: 2014 Most Recent Tetanus Shot: unknown Most Recent Pneumonia Vaccination: 2010 Review of Systems Constitutional: Negative Skin: Bruising Eyes: Negative ENT: Negative Respiratory: Negative Cardiovascular: Negative Gastrointestinal: Negative Genitourinary: Negative Motor: Negative Neurovascular: Negative Musculoskeletal: Arthralgia, Calf Tenderness, Myalgia Neurological: Negative Psychological: Negative All Other Systems Reviewed And Are Negative: Yes Physical Exam Triage Information Reviewed: Yes Appearance: No Pain Distress, Well-Nourished Vital Signs: Initial Vital Signs Temp 96.6 F 02/18/17 14:42 Pulse 78 02/18/17 14:42 Resp 16 02/18/17 14:42 BP 105/74 02/18/17 14:42 Pulse Ox 98 02/18/17 14:42 Vital Signs Reviewed: Yes Eye Exam: Normal ENT Exam: Normal Dental Exam: Normal Neck: Positive: Nontender, No Lymphadenopathy Respiratory Exam: Normal Respiratory: Positive: Chest non-tender, Lungs clear, Normal breath sounds, No respiratory distress, No accessory muscle use Cardiovascular Exam: Normal Cardiovascular: Positive: RRR, No Murmur, Pulses Normal Abdominal Exam: Normal Abdomen Description: Positive: Nontender, No Organomegaly Musculoskeletal: Positive: Strength Limited @ - RIGHT SHOULDER, ROM Limited @ - RIGHT SHOUDLER, Edema @ Neurological Exam: Normal Psychological Exam: Normal Skin Exam: Normal Shoulder Course/Dx - Differential Dx/Diagnosis Differential Diagnosis/HQI/PQRI: Fracture (Closed), Sprain, Strain Provider Diagnoses: RIGHT CLAVICAL FRACTURE, PROXIMAL FRACTURE FRAGMENT APPEARS TO EXTEND INTO SUBCUTANEOUS TISSUE PLANE WITHIN 0.7 cm OF THE SKIN SURFACE LIKELY VIOLATING THE DELTOTRAPEZIAL FASCIA - Physician Notification/Consults Discussed Patient Care With: Rocky Bruno Time Discussed With Above Provider: 16:40 Instructed by Provider To: Have Pt Call For Appt. Discharge - Discharge Plan Condition: Stable Disposition: HOME Patient Education Materials: Clavicle Fracture (ED), Osteoarthritis (ED) Referrals: Rocky Bruno MD [Medical Doctor] - Darío Linton MD [Primary Care Provider] -
== END 2017-02-18 17:15 | disposition home or self-care (01) ==
LOC: UCEAST 14:18
DX: S42.031A Displaced fracture of lateral end of right clavicle, initial encounter for closed fracture (principal); W06.XXXA Fall from bed, initial encounter; Y93.84 Activity, sleeping; Y92.9 Unspecified place or not applicable; Y99.9 Unspecified external cause status; G30.9 Alzheimer's disease, unspecified; F02.80 Dementia in other diseases classified elsewhere, unspecified severity, without behavioral disturbance, psychotic disturbance, mood disturbance, and anxiety
CPT/HCPCS: 72040; 72070; 99213; G0463

== ENCOUNTER 2017-04-27 13:01 | Inpatient (IN) | payer MEDICARE, OTHER ==
[2017-04-27] MEDS ORDERED: diPHENhydraMINE PO* 25 MG PO ONE (13:23)
[2017-04-27] MEDS ORDERED: Famotidine TAB* 20 MG PO ONE (13:23)
[2017-04-27] MEDS ORDERED: predniSONE TAB* 20 MG PO ONE (13:23)
--- NOTE | 2017-04-27 15:21 | RAD ---
Indication: Lethargy. Altered mental status. Comparison: January 18, 2017 chest radiograph. November 08, 2010 CT. Technique: Upright AP 1445 hours Report: Low lung volumes. Consolidation at the LEFT lung base may represent atelectasis or pneumonia. Grossly clear pleural spaces. Negative for cardiomegaly. Unremarkable central pulmonary vasculature and mediastinal contours. LEFT upper quadrant surgical clips. IMPRESSION: Consolidation at the LEFT lung base may represent atelectasis or pneumonia.
[2017-04-27 15:47] LABS: Hematocrit 40 % (42-52); Hemoglobin 13.4 g/dl (14.0-18.0); Mean Corpuscular HGB Conc 34 g/dl (31-36); Mean Corpuscular Hemoglobin 33 pg (27-31); Mean Corpuscular Volume 97 fL (80-94); Mean Platelet Volume 9 um3 (7.4-10.4); Red Cell Distribution Width 14 % (10.5-15); White Blood Count 6.8 10^3/ul (3.5-10.8)
[2017-04-27 16:04] LABS: Albumin 3.8 g/dL (3.2-5.2); BUN/Creatinine Ratio 14.9 (8-20); Calcium 9.1 mg/dL (8.6-10.3); EGFR African American 110.3 (>60); EGFR Non-African American 85.8 (>60); Globulin 3.2 g/dL (2-4); Potassium 3.6 mmol/L (3.5-5.0); Total Bilirubin 0.6 mg/dL (0.2-1.0)
[2017-04-27 16:06] LABS: Troponin I 0.01 ng/mL (<0.04)
[2017-04-27] MEDS ORDERED: NS 0.9% 1000 ML* 1,000 ML IV ONE (16:08)
[2017-04-27 16:20] LABS: TSH (Thyroid Stimulating Horm) 1.25 mcIU/mL (0.34-5.60)
[2017-04-27 17:31] LABS: Urine Bacteria Absent (Absent); Urine Bilirubin Negative (Negative); Urine Glucose 1+(50 mg/dL) (Negative); Urine Nitrite Negative (Negative)
[2017-04-27] MEDS ORDERED: Ciprofloxacin TAB* 500 MG PO ONE (17:51)
[2017-04-27] MEDS ORDERED: Azithromycin IV(*) 500 MG in NS 0.9% 250 ML* 250 ML IVPB SCH (20:00)
--- NOTE | 2017-04-27 20:20 | ED ---
Christie Barros Emily, scribed for Jt Claire MD on 04/27/17 at 1332 . Complex/Multi-Sys Presentation - HPI Summary HPI Summary: LEVEL 5 CAVEAT DUE TO EXPRESSIVE APHASIA. This patient is a 76 year old M BIBA to [facility] for [place] since earlier today. The patient rates the pain 0/10 in severity. Symptoms aggravated by nothing. Symptoms alleviated by nothing. Patient is confused. 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 PMHx includes DM, CAD, CVA, and dementia. - History Of Current Complaint Chief Complaint: EDGeneral Time Seen by Provider: 04/27/17 13:25 Hx Obtained From: Patient, Medical Records Onset/Duration: Sudden Onset, Lasting Hours, Still Present Timing: Constant Severity Currently: Moderate Severity Initially: Moderate Aggravating Factor(s): nothing Alleviating Factor(s): nothing Associated Signs And Symptoms: Positive: Confusion, Other - AMS - Allergies/Home Medications Allergies/Adverse Reactions: Allergies Allergy/AdvReac Type Severity Reaction Status Date / Time Niacin Allergy Rash And Verified 02/18/17 14:52 Itching Sulfa Drugs Allergy Unknown Verified 02/18/17 14:52 Reaction Details Meperidine [From Demerol HCl] AdvReac Intermediate Hallucinati Verified 14:52 on Promethazine [From Phenergan] AdvReac Intermediate Hallucinati Verified 14:52 on contrast dye AdvReac Intermediate Hallucinati Uncoded 02/18/17 14:52 on PMH/Surg Hx/FS Hx/Imm Hx Endocrine/Hematology History: Reports: Hx Diabetes Cardiovascular History: Reports: Hx Coronary Artery Disease, Other Cardiovascular Problems/Disorders - HX OF STROKE IN 2002 Denies: Hx Congestive Heart Failure, Hx Hypertension, Hx Pacemaker/ICD Respiratory History: Reports: Hx Chronic Bronchitis - sev. bouts of s, early , Hx Pneumonia - late s early Denies: Hx Asthma, Other Respiratory Problems/Disorders GI History: Reports: Hx Hiatal Hernia, Hx Ulcer - d/t motrin, Other GI Disorders - perforated bowel History: Reports: Hx Benign Prostatic Hyperplasia, Other Problems/ Disorders - BPH Musculoskeletal History: Reports: Hx Arthritis - Knee surgeries, Hx Back Problems - L4 and L5 (laminectomy), Other Musculoskeletal History - RIght big toe deformity leading to surgery Sensory History: Denies: Hx Contacts or Glasses, Hx Hearing Aid Opthamlomology History: Denies: Hx Contacts or Glasses Neurological History: Reports: Hx CVA, Hx Dementia Denies: Other Neuro Impairments/Disorders Psychiatric History: Reports: Hx Depression Denies: Hx Panic Disorder - Surgical History Surgery Procedure, Year, and Place: hernia repair 2002, perforated bowel 2003 all umbilical area, [facility] laminectomy, Knee surgeries bilateral, two surgeries on right foot,hiatal hernia repair. , removal of infected tissue from bed sores and surgical site Hx Anesthesia Reactions: No Infectious Disease History: Unable to Obtain/Confirm Infectious Disease History: Reports: Hx of Known/Suspected MRSA Denies: History Other Infectious Disease, Traveled Outside the [place] in Last 30 Days - Family History Known Family History: Positive: Cardiac Disease - father D in 60s., Diabetes - Social History Alcohol Use: None Alcohol Amount: ONCE A WEEK OR EOW Substance Use Type: Reports: None Smoking Status (MU): Never Smoked Tobacco Review of Systems - ROS Summary Review of Systems Summary: LEVEL 5 CAVEAT DUE TO EXPRESSIVE APHASIA. Negative: Fever Neurological: Other - AMS and confusion All Other Systems Reviewed And Are Negative: No Physical Exam Triage Information Reviewed: Yes Vital Signs On Initial Exam: Initial Vitals BP 120/72 04/27/17 13:07 Vital Signs Reviewed: Yes Completion Of Physical Exam Limited Due To: Level 5 Appearance: Positive: Well-Appearing, No Pain Distress Skin: Positive: Warm, Dry, Other - Skin tenting Head/Face: Positive: Normal Head/Face Inspection Eyes: Positive: Normal ENT: Positive: Other - Dry oral mucosa Neck: Positive: Supple, Nontender Respiratory/Lung Sounds: Positive: Breath Sounds Present, Other - Crackles on the right side Cardiovascular: Positive: RRR Abdomen Description: Positive: Nontender, Soft Bowel Sounds: Positive: Present Musculoskeletal: Positive: Normal Neurological: Positive: Sensory/Motor Intact, CN Intact II-III, Other - Expressive aphasia. Psychiatric: Positive: Affect/Mood Appropriate - Loli Coma Scale Best Eye Response: 4 - Spontaneous Best Motor Response: 6 - Obeys Commands Best Verbal Response: 5 - Oriented Coma Scale Total: 15 Diagnostics - Vital Signs Vital Signs Temp Pulse Resp BP Pulse Ox 04/27/17 13:12 82 97 04/27/17 13:10 96.8 F 82 18 120/72 99 04/27/17 13:07 120/72 - Laboratory Lab Results: Lab Results 04/27/17 04/27/17 04/27/17 Range/Units 15:25 15:25 15:25 WBC 6.8 (3.5-10.8) 10^3/ul RBC 4.10 (4.0-5.4) 10^6/ul Hgb 13.4 L (14.0-18.0) g/dl Hct 40 L (42-52) % MCV 97 H (80-94) fL MCH 33 H (27-31) pg MCHC 34 (31-36) g/dl RDW 14 (10.5-15) % Plt Count 113 L (150-450) 10^3/ul MPV 9 (7.4-10.4) um3 Neut % (Auto) 68.3 (38-83) % Lymph % (Auto) 19.1 L (25-47) % Bethel % (Auto) 10.9 H (1-9) % Eos % (Auto) 1.2 (0-6) % Baso % (Auto) 0.5 (0-2) % Absolute Neuts (auto) 4.6 (1.5-7.7) 10^3/ul Absolute Lymphs (auto) 1.3 (1.0-4.8) 10^3/ul Absolute Monos (auto) 0.7 (0-0.8) 10^3/ul Absolute Eos (auto) 0.1 (0-0.6) 10^3/ul Absolute Basos (auto) 0 (0-0.2) 10^3/ul Absolute Nucleated RBC 0.01 10^3/ul Nucleated RBC % 0.1 INR (Anticoag Therapy) 0.98 (0.89-1.11) Sodium 137 (133-145) mmol/L Potassium 3.6 (3.5-5.0) mmol/L Chloride 104 (101-111) mmol/L Carbon Dioxide 26 (22-32) mmol/L Anion Gap 7 (2-11) mmol/L BUN 13 (6-24) mg/dL Creatinine 0.87 (0.67-1.17) mg/dL Est GFR ( Amer) 110.3 (>60) Est GFR (Non-Af Amer) 85.8 (>60) BUN/Creatinine Ratio 14.9 (8-20) Glucose 159 H (70-100) mg/dL Lactic Acid (0.5-2.0) mmol/L Calcium 9.1 (8.6-10.3) mg/dL Total Bilirubin 0.60 (0.2-1.0) mg/dL AST 14 (13-39) U/L ALT 14 (7-52) U/L Alkaline Phosphatase 103 (34-104) U/L Troponin I 0.01 (<0.04) ng/mL Total Protein 7.0 (6.4-8.9) g/dL Albumin 3.8 (3.2-5.2) g/dL Globulin 3.2 (2-4) g/dL Albumin/Globulin Ratio 1.2 (1-3) TSH 1.25 (0.34-5.60) mcIU/mL Urine Color Urine Appearance Urine pH (5-9) Ur Specific Riley (1.010-1.030) Urine Protein (Negative) Urine Ketones (Negative) Urine Blood (Negative) Urine Nitrate (Negative) Urine Bilirubin (Negative) Urine Urobilinogen (Negative) Ur Leukocyte Esterase (Negative) Urine WBC (Auto) (Absent) Urine RBC (Auto) (Absent) Urine Bacteria (Absent) Urine Glucose (Negative) 04/27/17 04/27/17 Range/Units 15:25 17:16 WBC (3.5-10.8) 10^3/ul RBC (4.0-5.4) 10^6/ul Hgb (14.0-18.0) g/dl Hct (42-52) % MCV (80-94) fL MCH (27-31) pg MCHC (31-36) g/dl RDW (10.5-15) % Plt Count (150-450) 10^3/ul MPV (7.4-10.4) um3 Neut % (Auto) (38-83) % Lymph % (Auto) (25-47) % Bethel % (Auto) (1-9) % Eos % (Auto) (0-6) % Baso % (Auto) (0-2) % Absolute Neuts (auto) (1.5-7.7) 10^3/ul Absolute Lymphs (auto) (1.0-4.8) 10^3/ul Absolute Monos (auto) (0-0.8) 10^3/ul Absolute Eos (auto) (0-0.6) 10^3/ul Absolute Basos (auto) (0-0.2) 10^3/ul Absolute Nucleated RBC 10^3/ul Nucleated RBC % INR (Anticoag Therapy) (0.89-1.11) Sodium (133-145) mmol/L Potassium (3.5-5.0) mmol/L Chloride (101-111) mmol/L Carbon Dioxide (22-32) mmol/L Anion Gap (2-11) mmol/L BUN (6-24) mg/dL Creatinine (0.67-1.17) mg/dL Est GFR ( Amer) (>60) Est GFR (Non-Af Amer) (>60) BUN/Creatinine Ratio (8-20) Glucose (70-100) mg/dL Lactic Acid 1.1 (0.5-2.0) mmol/L Calcium (8.6-10.3) mg/dL Total Bilirubin (0.2-1.0) mg/dL AST (13-39) U/L ALT (7-52) U/L Alkaline Phosphatase (34-104) U/L Troponin I (<0.04) ng/mL Total Protein (6.4-8.9) g/dL Albumin (3.2-5.2) g/dL Globulin (2-4) g/dL Albumin/Globulin Ratio (1-3) TSH (0.34-5.60) mcIU/mL Urine Color Lyla Urine Appearance Turbid Urine pH 6.0 (5-9) Ur Specific Riley 1.018 (1.010-1.030) Urine Protein 2+(100 mg/dl) H (Negative) Urine Ketones 1+ H (Negative) Urine Blood 2+ H (Negative) Urine Nitrate Negative (Negative) Urine Bilirubin Negative (Negative) Urine Urobilinogen Negative (Negative) Ur Leukocyte Esterase 3+ H (Negative) Urine WBC (Auto) 3+(>20/hpf) H (Absent) Urine RBC (Auto) 3+(>10/hpf) H (Absent) Urine Bacteria Absent (Absent) Urine Glucose 1+(50 mg/dl) H (Negative) Result Diagrams: 04/27/17 15:25 04/27/17 15:25 Lab Statement: Any lab studies that have been ordered have been reviewed, and results considered in the medical decision making process. - Radiology CXR Radiology Interpretation Completed By: Radiologist - Consolidation at the LEFT lung base may represent atelectasis or pneumonia. ED physician has reviewed this radiology report and agrees. - EKG 1417 Cardiac Rate: NL - 81 BPM. EKG Rhythm: Sinus Rhythm EKG Interpretation: Old inferior MT. Complex Multi-Symp Course/Dx Course Of Treatment: Mr. Bustamante was sent in by his for weakness. He was found to be AAOX3 but quite weak and to have a UTI. He was given IV NS and Cipro and admitted to the hospitalists. - Diagnoses Provider Diagnoses: Weakness, UTI (urinary tract infection) - Physician Notifications Discussed Care Of Patient With: Percy Espino Time Discussed With Above Provider: 17:53 Instructed by Provider To: Other - Consulted Dr. Espino (hospitalist) who agrees to admit the patient. Discharge - Discharge Plan Condition: Stable Disposition: ADMITTED TO [facility] documentation as recorded by the Christie greenfield Emily accurately reflects the service I personally performed and the decisions made by me, Jt Claire MD.
[2017-04-27] MEDS ORDERED: Acetaminophen TAB* 325 MG PO PRN (21:00)
[2017-04-27] MEDS: Donepezil TAB* 5 MG PO SCH (21:18)
[2017-04-27] MEDS: Metoprolol Tartrate TAB* 25 MG PO SCH (21:18)
[2017-04-27] MEDS: Clopidogrel TAB* 75 MG PO SCH (21:18)
[2017-04-27] MEDS: cefTRIAXone VIAL(*) 1,000 MG in NS 0.9% 50 ML* 50 ML IVPB SCH (21:38)
--- NOTE | 2017-04-27 22:09 | HP ---
HISTORY AND PHYSICAL: DATE OF ADMISSION: 04/27/17 PRIMARY CARE PROVIDER: Dr. Darío Linton. ADMITTING PHYSICIAN: Dr. Percy Espino. CHIEF COMPLAINT: Inability to get out of bed and new cough. HISTORY OF PRESENT ILLNESS: Bandar Bustamante is a 76-year-old male with past medical history of CVA with expressive aphasia, pkk-xshiokl-crmvfivcx diabetes mellitus, multiple complications after hernia repair surgery in 2002, leading to coma, sepsis, intubation, tracheostomy. The patient was at his usual state of baseline health, which of note requires one person assistance to walk when he was unable to get out of his chair with 's assistance on the night prior to admission as well as 3 nights prior to admission. During these times, his was his primary caregiver at home, needed to call her son and grandson to help assist him back from his reclining chair into bed. This greatly concerned her and when he developed a new nonproductive cough on the day of admission, she called 911 for transport to the hospital. She denies any fevers or chills, though does note that he is usually cold at baseline. He also had a strong odor to his urine, although this has been the case since November 2016. He is incontinent of bowel movements though tends toward constipation for which he uses MiraLAX. His did have diarrhea this week. No other sick contacts. He is incontinent of urine as well for the last 18 months. Given his expressive aphasia, it is extremely hard for him to communicate any of his symptoms. When he gets sick, his has to basically guess given grimaces/ body language. He is oriented to his name and at baseline can recognize where he is if he is in a familiar location such as his home or his son's diner in [place]. On admission to the ED, he was noted to be hemodynamically stable and afebrile. His chest x-ray was read as left lower lobe atelectasis versus pneumonia, unchanged really from the last 2 x-rays in the system. Of note, he did have an admission between 01/18/17 to 01/23/17 for presumed pneumonia. At that time, has been treated with Levaquin. He seemed to have some altered mental status, confusion with the Levaquin and that is now something the wishes to avoid using in the future. During the last admission, the patient was evaluated by the palliative care services for consideration for additional services at home or even enrolling in hospice, but ultimately the patient improved enough working with physical therapy and has gotten to a level (though tenuous) with which the thinks that she can support him at home. Of note, she does have a hospital bed and rolling walker in home, oxygen p.r.n., which he does need after he walks the 40 paces up the ramp to the house and into the bedroom. She does wish to enquire about getting a Adal lift for such occasions in the future where he is unable to lift himself out of bed such as these last 2 occasions. PAST MEDICAL HISTORY: CVA with expressive aphasia; vfi-fjfwsml-puxapkvrx diabetes mellitus; severe dementia; progressive, stepwise decline in independence this year; CAD, with stents placed in 2006; evidence of inferior and anterolateral myocardial infarction on EKG. MEDICATIONS: Include: 1. Metformin 1000 mg b.i.d., although of note only takes once a day after has cut out carbohydrates from diet. 2. Aricept 10 mg daily. 3. Plavix 75 mg. 4. Metoprolol 25 mg b.i.d. 5. Tylenol 1000 mg q.h.s. for back pain. 6. Melatonin q.h.s. for insomnia. ALLERGIES: SULFA, MEPERIDINE, PROMETHAZINE, IV CONTRAST DYE. FAMILY MEDICAL HISTORY: Includes mother at 85, father at age 63 of massive heart attack. SOCIAL HISTORY: The patient lives alone with in [place]. He is a never smoker, no drinker, no drug use. 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 PHYSICAL EXAMINATION GENERAL: The patient is chronically ill appearing, but pleasant, leaning towards right side in bed. Alert to name only. VITAL SIGNS: temperature of 96.8, blood pressure 118/104, heart rate 88, sat' ing 100% on room air. HEENT: Normocephalic, atraumatic. Mucous membranes are moist, no scleral icterus. NECK: Supple. No cervical lymphadenopathy. PULMONARY: Lungs, no wheezing, rales, or rhonchi though difficult to exam given the patient's positioning and slight crackles at left lower lung white. CARDIAC: Regular rate and rhythm. No murmurs, rubs, or gallops. ABDOMEN: Soft, obese with ventral hernia, nontender. EXTREMITIES: No lower extremity edema, pulses intact, status post right first toe partial amputation. SKIN: No rashes, no lesions. DIAGNOSTIC STUDIES/LAB DATA: WBC of 6.8, hemoglobin 13.4, platelets 113, hematocrit 40, sodium 137, chloride 104, BUN 13, glucose 159, potassium 3.6, bicarb 26, creatinine 0.87. His urinalysis was noted for 2+ protein, 1+ ketones, 2+ blood, 3+ leukocyte esterase , 3+ wbc's, 3+ rbc's, and 1+ glucose and was noted to be turbid. Imaging: Chest x-ray, impression: Consolidation at the left lung base may represent atelectasis or pneumonia. ASSESSMENT AND PLAN: This is a 76-year-old male with past medical history of severe dementia; cerebrovascular accident, complicated by expressive aphasia; non- insulin-dependent diabetes mellitus; coronary artery disease, status post stent, who is presenting with decreased ability to get out of bed and a new cough. His living situation is somewhat tenuous at baseline and any small infection puts him at risk for not being able to be cared for at home. He has evidence of urinary tract infection and chest x-ray which is hard to exclude a pneumonia, although he does not have a white count, fever, or oxygen requirement. We will admit him for inpatient status, cancel the ciprofloxacin given concern for altered mental status side effect with Levaquin previously, put him on ceftriaxone to cover potential urinary tract infection. does say that he has a history of dysphagia after his stroke and is currently using a mechanical soft with nectar thick liquid, but has not noticed any episodes of choking or aspiration recently, consideration to get sputum culture or add anaerobic coverage. We will follow up urine culture, but otherwise, the patient looks nontoxic appearing. He will go to telemetry bed given his history of myocardial infarction. We will continue his mechanical soft, nectar thick liquid diet with aspiration precautions. Physical therapy requested For his history of coronary artery disease, we will continue his Plavix. For his hypertension and coronary artery disease, we will also continue metoprolol 25 mg p.o. daily. Continue for chronic back pain, his Tylenol 1000 mg q.h.s. For dementia, continue his 10 mg Aricept. For his yhg-lfauoue-bfvvnuhdt diabetes mellitus, we will hold his metformin 1000 mg daily, get sgodi-za-yorf testing q.a.c., q.h.s. and cover with sliding scale insulin as necessary. He is a DNR/DNI, but did not bring his MOLST form in with him. He is accompanied by his , his primary caregiver. [id number]/CPS #: [id number] [place]
[2017-04-28 05:21] LABS: Hematocrit 36 % (42-52); Hemoglobin 12.3 g/dl (14.0-18.0); Mean Corpuscular HGB Conc 34 g/dl (31-36); Mean Corpuscular Hemoglobin 33 pg (27-31); Mean Corpuscular Volume 96 fL (80-94); Mean Platelet Volume 9 um3 (7.4-10.4); Red Blood Count 3.76 10^6/ul (4.0-5.4); Red Cell Distribution Width 14 % (10.5-15); White Blood Count 6.4 10^3/ul (3.5-10.8)
[2017-04-28 05:32] LABS: BUN/Creatinine Ratio 13.3 (8-20); Calcium 8.8 mg/dL (8.6-10.3); EGFR African American 96.2 (>60); EGFR Non-African American 74.8 (>60); Potassium 3.4 mmol/L (3.5-5.0)
[2017-04-28] MEDS ORDERED: Influenza VAC *QUAD* 2017-18* 0.5 ML SYRINGE IM ONE (09:00)
[2017-04-28] MEDS: Donepezil TAB* 5 MG PO SCH (10:36)
[2017-04-28] MEDS: Clopidogrel TAB* 75 MG PO SCH (10:37)
[2017-04-28] MEDS: Metoprolol Tartrate TAB* 25 MG PO SCH ×2 (10:37→21:02)
[2017-04-28] MEDS ORDERED: Dextrose 50% Syringe 50 ML* 25 GM/50 ML SYRINGE IV PUSH PRN (12:54)
--- NOTE | 2017-04-28 17:18 | PN ---
Subjective Date of Service: 04/28/17 Interval History: Pt still aphasic but looks comfortable. Later was able to communicate somewhat with his . Objective Active Medications: Acetaminophen (Tylenol Tab*) 975 mg PO QPM PRN PRN Reason: PAIN - MILD TO MODERATE Clopidogrel Bisulfate (Plavix Tab*) 75 mg PO QAM [facility] Last Admin: 04/28/17 10:37 Dose: 75 mg Dextrose (D50w Syringe 50 Ml*) 12.5 gm IV PUSH .FOR FS < 60 - SS PRN PRN Reason: FS < 60 Donepezil HCl (Aricept Tab*) 10 mg PO DAILY [facility] Last Admin: 04/28/17 10:36 Dose: 10 mg Ceftriaxone Sodium 1,000 mg/ (Sodium Chloride) 50 mls @ 200 mls/hr IVPB Q24H [facility] Last Admin: 04/27/17 21:38 Dose: 200 mls/hr Insulin Human Lispro (Humalog*) 0 units SUBCUT ACHS [facility] PRN Reason: Protocol Metoprolol Tartrate (Lopressor Tab*) 25 mg PO BID [facility] Last Admin: 04/28/17 10:37 Dose: 25 mg Vital Signs 04/27/17 04/27/17 04/27/17 18:30 19:00 19:25 Temperature 98.8 F Pulse Rate 92 96 Respiratory 16 Rate Blood Pressure 136/78 124/81 122/61 (mmHg) O2 Sat by Pulse 97 98 Oximetry 04/27/17 04/28/17 04/28/17 20:00 00:53 03:45 Temperature 99.2 F 98.4 F Pulse Rate 90 84 Respiratory 16 16 16 Rate Blood Pressure 116/53 120/69 (mmHg) O2 Sat by Pulse 98 100 Oximetry 04/28/17 04/28/17 04/28/17 08:00 08:02 11:43 Temperature 98.2 F 98.8 F Pulse Rate 99 85 Respiratory 16 18 18 Rate Blood Pressure 101/49 102/52 (mmHg) O2 Sat by Pulse 96 99 Oximetry 04/28/17 15:26 Temperature 98.1 F Pulse Rate 59 Respiratory 16 Rate Blood Pressure 109/63 (mmHg) O2 Sat by Pulse 97 Oximetry Oxygen Devices in Use Now: None Appearance: Right shoulder contractures. Chronic dementia. Oriented to name. Following some commands Eyes: No Scleral Icterus, PERRLA Ears/Nose/Mouth/Throat: NL Teeth, Lips, Gums, Mucous Membranes Moist Neck: NL Appearance and Movements; NL JVP, Trachea Midline Respiratory: Symmetrical Chest Expansion and Respiratory Effort, Clear to Auscultation Cardiovascular: NL Sounds; No Murmurs; No JVD, RRR Abdominal: - - large ventral hernia, no wincing to palpation. soft. Extremities: No Edema, No Clubbing, Cyanosis Skin: No Rash or Ulcers, No Nodules or Sclerosis Neurological: - - Oriented to name only. Tracks with eyes, follows some commands Result Diagrams: 04/28/17 04:46 04/28/17 04:46 Additional Lab and Data: Abnormal Lab Results 04/27/17 04/27/17 04/28/17 17:16 22:42 04:46 WBC 6.4 RBC 3.76 L Hgb 12.3 L Hct 36 L MCV 96 H MCH 33 H MCHC 34 RDW 14 Plt Count 109 L MPV 9 Neut % (Auto) 59.0 Lymph % (Auto) 26.6 Bland % (Auto) 12.1 H Eos % (Auto) 1.6 Baso % (Auto) 0.7 Absolute Neuts (auto) 3.8 Absolute Lymphs (auto) 1.7 Absolute Monos (auto) 0.8 Absolute Eos (auto) 0.1 Absolute Basos (auto) 0 Absolute Nucleated RBC 0 Nucleated RBC % 0.1 Sodium Potassium Chloride Carbon Dioxide Anion Gap BUN Creatinine Est GFR ( Amer) Est GFR (Non-Af Amer) BUN/Creatinine Ratio Glucose POC Glucose (mg/dL) 161 H Calcium Urine Color Lyla Urine Appearance Turbid Urine pH 6.0 Ur Specific [place] 1.018 Urine Protein 2+(100 mg/dl) H Urine Ketones 1+ H Urine Blood 2+ H Urine Nitrate Negative Urine Bilirubin Negative Urine Urobilinogen Negative Ur Leukocyte Esterase 3+ H Urine WBC (Auto) 3+(>20/hpf) H Urine RBC (Auto) 3+(>10/hpf) H Urine Bacteria Absent Urine Glucose 1+(50 mg/dl) H 04/28/17 04/28/17 04/28/17 04:46 08:13 11:56 WBC RBC Hgb Hct MCV MCH MCHC RDW Plt Count MPV Neut % (Auto) Lymph % (Auto) Bland % (Auto) Eos % (Auto) Baso % (Auto) Absolute Neuts (auto) Absolute Lymphs (auto) Absolute Monos (auto) Absolute Eos (auto) Absolute Basos (auto) Absolute Nucleated RBC Nucleated RBC % Sodium 137 Potassium 3.4 L Chloride 105 Carbon Dioxide 25 Anion Gap 7 BUN 13 Creatinine 0.98 Est GFR ( Amer) 96.2 Est GFR (Non-Af Amer) 74.8 BUN/Creatinine Ratio 13.3 Glucose 137 H POC Glucose (mg/dL) 143 H 198 H Calcium 8.8 Urine Color Urine Appearance Urine pH Ur Specific [place] Urine Protein Urine Ketones Urine Blood Urine Nitrate Urine Bilirubin Urine Urobilinogen Ur Leukocyte Esterase Urine WBC (Auto) Urine RBC (Auto) Urine Bacteria Urine Glucose 04/28/17 16:57 WBC RBC Hgb Hct MCV MCH MCHC RDW Plt Count MPV Neut % (Auto) Lymph % (Auto) Bland % (Auto) Eos % (Auto) Baso % (Auto) Absolute Neuts (auto) Absolute Lymphs (auto) Absolute Monos (auto) Absolute Eos (auto) Absolute Basos (auto) Absolute Nucleated RBC Nucleated RBC % Sodium Potassium Chloride Carbon Dioxide Anion Gap BUN Creatinine Est GFR ( Amer) Est GFR (Non-Af Amer) BUN/Creatinine Ratio Glucose POC Glucose (mg/dL) 163 H Calcium Urine Color Urine Appearance Urine pH Ur Specific [place] Urine Protein Urine Ketones Urine Blood Urine Nitrate Urine Bilirubin Urine Urobilinogen Ur Leukocyte Esterase Urine WBC (Auto) Urine RBC (Auto) Urine Bacteria Urine Glucose Assess/Plan/Problems-Billing Assessment: 76 year old male PMH CVA w/ expressive aphasia, dementia, NIDDM, CAD s/p stent, right shoulder injury, p/w inability to get out of chair with one person. UA suspicious for UTI. - Patient Problems (1) UTI (urinary tract infection) Current Visit: Yes Status: Acute Comment: UA with leukocyte esterase positive, wbc, rbc. Empiric ceftriaxone. F/u UCx No Leukocytosis. (2) Generalized weakness Current Visit: Yes Status: Acute Code(s): R53.1 - WEAKNESS SNOMED Code(s) : 28668180 Comment: Likely 2/2 UTI. Physical Therapy. Aspiration precautions (3) Expressive aphasia Current Visit: Yes Status: Acute Code(s): R47.01 - APHASIA SNOMED Code(s) : 905208983 (4) Dementia Current Visit: No Status: Acute Code(s): F03.90 - UNSPECIFIED DEMENTIA WITHOUT BEHAVIORAL DISTURBANCE SNOMED Code(s): 49195522 Comment: continue home aricept (5) History of CVA (cerebrovascular accident) Current Visit: No Status: Chronic Code(s): Z86.73 - PRSNL HX OF TIA (TIA), AND CEREB INFRC W/O RESID DEFICITS SNOMED Code(s): 990352002 Comment: Aspiration precautions Physical therapy (6) Non-insulin dependent type 2 diabetes mellitus Current Visit: No Status: Chronic Priority: Medium Code(s): E11.9 - TYPE 2 DIABETES MELLITUS WITHOUT COMPLICATIONS SNOMED Code(s): 23610580 Comment: Metformin held POCT qac qhs Covering with SS lispro HgbA1c 8.0% (7) Presence of stent in coronary artery in patient with coronary artery disease Current Visit: Yes Status: Acute Code(s): I25.10 - ATHSCL HEART DISEASE OF [place] CORONARY ARTERY W/O ANG PCTRS; Z95.5 - PRESENCE OF CORONARY ANGIOPLASTY IMPLANT AND GRAFT SNOMED Code(s): 328012921 Comment: 2006. Continue home plavix 75mg daily Status and Disposition: medicine inpatient. telemetry Attending: Percy Espino
[2017-04-28] MEDS: Enoxaparin(*) 40 MG/0.4 ML SYR SUBCUT SCH (17:51)
[2017-04-28] MEDS: Insulin LISPRO* 1 UNITS UNIT SUBCUT SCH ×2 (17:52→21:11)
[2017-04-28] MEDS: cefTRIAXone VIAL(*) 1,000 MG in NS 0.9% 50 ML* 50 ML IVPB SCH (21:05)
[2017-04-29 05:51] LABS: BUN/Creatinine Ratio 14.1 (8-20); Calcium 8.7 mg/dL (8.6-10.3); EGFR African American 103.4 (>60); EGFR Non-African American 80.4 (>60); Potassium 3.8 mmol/L (3.5-5.0)
[2017-04-29] MEDS: Insulin LISPRO* 1 UNITS UNIT SUBCUT SCH ×4 (09:06→20:31)
[2017-04-29] MEDS: Clopidogrel TAB* 75 MG PO SCH (09:15)
[2017-04-29] MEDS: Donepezil TAB* 5 MG PO SCH (09:16)
[2017-04-29] MEDS: Metoprolol Tartrate TAB* 25 MG PO SCH ×2 (09:17→20:31)
[2017-04-29] MEDS ORDERED: Polyethylene Glycol 3350* 17 GM PACKET PO PRN (14:24)
--- NOTE | 2017-04-29 17:08 | PN ---
Subjective Date of Service: 04/29/17 Interval History: Worked with physical therapy today, able to ambulate with walker which is improved since day of admission. UCx with Proteus Mirabilis. strep pna U Ag negative Objective Active Medications: Acetaminophen (Tylenol Tab*) 975 mg PO QPM PRN PRN Reason: PAIN - MILD TO MODERATE Clopidogrel Bisulfate (Plavix Tab*) 75 mg PO QAM [facility] Last Admin: 04/29/17 09:15 Dose: 75 mg Dextrose (D50w Syringe 50 Ml*) 12.5 gm IV PUSH .FOR FS < 60 - SS PRN PRN Reason: FS < 60 Donepezil HCl (Aricept Tab*) 10 mg PO DAILY [facility] Last Admin: 04/29/17 09:16 Dose: 10 mg Enoxaparin Sodium (Lovenox(*)) 40 mg SUBCUT Q24H [facility] Last Admin: 04/28/17 17:51 Dose: 40 mg Ceftriaxone Sodium 1,000 mg/ (Sodium Chloride) 50 mls @ 200 mls/hr IVPB Q24H [facility] Last Admin: 04/28/17 21:05 Dose: 200 mls/hr Insulin Human Lispro (Humalog*) 0 units SUBCUT ACHS [facility] PRN Reason: Protocol Last Admin: 04/29/17 14:05 Dose: Not Given Metoprolol Tartrate (Lopressor Tab*) 25 mg PO BID [facility] Last Admin: 04/29/17 09:17 Dose: 25 mg Polyethylene Glycol/Electrolytes (Miralax*) 17 gm PO DAILY PRN PRN Reason: CONSTIPATION Vital Signs 04/28/17 04/28/17 04/28/17 18:02 19:23 20:00 Temperature 98.3 F Pulse Rate 73 Respiratory 18 20 20 Rate Blood Pressure 102/86 (mmHg) O2 Sat by Pulse 99 Oximetry 04/28/17 04/29/17 04/29/17 23:46 03:50 07:37 Temperature 97.9 F 98.0 F Pulse Rate 61 57 76 Respiratory 20 20 16 Rate Blood Pressure 111/40 100/53 106/61 (mmHg) O2 Sat by Pulse 93 98 92 Oximetry 04/29/17 04/29/17 04/29/17 07:40 10:54 17:00 Temperature 97.5 F 98.8 F Pulse Rate 89 Respiratory 12 20 Rate Blood Pressure 104/56 (mmHg) O2 Sat by Pulse 100 Oximetry Oxygen Devices in Use Now: None Appearance: Sleeping soundly, snoring Eyes: No Scleral Icterus, PERRLA Respiratory: - - anteriorly clear to auscultation w/o wheezing, rales or rhonchi. Cardiovascular: NL Sounds; No Murmurs; No JVD, RRR Abdominal: - - soft, nontender, ventral hernia Extremities: No Edema, No Clubbing, Cyanosis Skin: No Rash or Ulcers Neurological: - - exam deferred as asleep. Nutrition: Taking PO's Result Diagrams: 04/28/17 04:46 04/29/17 05:10 Additional Lab and Data: Laboratory Results - last 24 hr 04/28/17 04/28/17 04/29/17 16:57 20:48 05:10 Sodium 137 Potassium 3.8 Chloride 107 Carbon Dioxide 25 Anion Gap 5 BUN 13 Creatinine 0.92 Est GFR ( Amer) 103.4 Est GFR (Non-Af Amer) 80.4 BUN/Creatinine Ratio 14.1 Glucose 173 H POC Glucose (mg/dL) 163 H 261 H Calcium 8.7 04/29/17 04/29/17 07:38 12:22 Sodium Potassium Chloride Carbon Dioxide Anion Gap BUN Creatinine Est GFR ( Amer) Est GFR (Non-Af Amer) BUN/Creatinine Ratio Glucose POC Glucose (mg/dL) 144 H 147 H Calcium Microbiology and Other Data: Microbiology 04/29/17 10:30 Streptococcus pneumoniae Ag Screen - Final Urine Negative S. pneumo Antigen Assess/Plan/Problems-Billing Assessment: 76 year old male PMH CVA w/ expressive aphasia, dementia, NIDDM, CAD s/p stent, right shoulder injury, p/w inability to get out of chair with one person. Proteus Mirabilis UTI, sensitivity pending. - Patient Problems (1) UTI (urinary tract infection) Current Visit: Yes Status: Acute Comment: UA with leukocyte esterase positive, wbc, rbc. Empiric ceftriaxone. Proteus Mirabilis, await sensitivity. Improving strength/ambulation. No Leukocytosis. (2) Generalized weakness Current Visit: Yes Status: Acute Code(s): R53.1 - WEAKNESS SNOMED Code(s) : 86838518 Comment: Likely 2/2 UTI. Improving with Physical Therapy. Aspiration precautions (3) Expressive aphasia Current Visit: Yes Status: Acute Code(s): R47.01 - APHASIA SNOMED Code(s) : 169409279 (4) Dementia Current Visit: No Status: Acute Code(s): F03.90 - UNSPECIFIED DEMENTIA WITHOUT BEHAVIORAL DISTURBANCE SNOMED Code(s): 27724212 Comment: continue home aricept (5) History of CVA (cerebrovascular accident) Current Visit: No Status: Chronic Code(s): Z86.73 - PRSNL HX OF TIA (TIA), AND CEREB INFRC W/O RESID DEFICITS SNOMED Code(s): 602007159 Comment: Aspiration precautions Physical therapy (6) Non-insulin dependent type 2 diabetes mellitus Current Visit: No Status: Chronic Priority: Medium Code(s): E11.9 - TYPE 2 DIABETES MELLITUS WITHOUT COMPLICATIONS SNOMED Code(s): 06442906 Comment: Metformin held POCT qac qhs Covering with SS lispro HgbA1c 8.0% (7) Presence of stent in coronary artery in patient with coronary artery disease Current Visit: Yes Status: Acute Code(s): I25.10 - ATHSCL HEART DISEASE OF [place] CORONARY ARTERY W/O ANG PCTRS; Z95.5 - PRESENCE OF CORONARY ANGIOPLASTY IMPLANT AND GRAFT SNOMED Code(s): 291935871 Comment: 2006. Continue home plavix 75mg daily Status and Disposition: medicine inpatient. Likely discharge 04/30/17 Attending: Percy Espino
[2017-04-29] MEDS: Enoxaparin(*) 40 MG/0.4 ML SYR SUBCUT SCH (17:59)
[2017-04-29] MEDS: cefTRIAXone VIAL(*) 1,000 MG in NS 0.9% 50 ML* 50 ML IVPB SCH (20:24)
[2017-04-30 05:00] LABS: BUN/Creatinine Ratio 14.5 (8-20); Calcium 9.5 mg/dL (8.6-10.3); EGFR African American 116.5 (>60); EGFR Non-African American 90.6 (>60); Potassium 3.9 mmol/L (3.5-5.0)
[2017-04-30] MEDS: Insulin LISPRO* 1 UNITS UNIT SUBCUT SCH ×2 (08:12→14:17)
[2017-04-30] MEDS: Metoprolol Tartrate TAB* 25 MG PO SCH (08:16)
[2017-04-30] MEDS: Clopidogrel TAB* 75 MG PO SCH (08:16)
[2017-04-30] MEDS: Donepezil TAB* 5 MG PO SCH (08:16)
[2017-04-30 12:58] VITALS: BP 110/66
--- NOTE | 2017-05-01 05:32 | DS ---
DISCHARGE SUMMARY: DATE OF ADMISSION: 04/27/17 DATE OF DISCHARGE: 04/30/17 ADMITTING/ATTENDING PHYSICIAN: Percy Espino MD PRIMARY CARE PHYSICIAN: Darío Linton MD CHIEF COMPLAINT: Generalized weakness preventing baseline ambulation and transfers. PRIMARY DIAGNOSIS: Urinary tract infection. SECONDARY DIAGNOSES: 1. Cerebrovascular accident complicated by expressive aphasia. 2. Coronary artery disease, status post CABG. 3. Right shoulder injury. 4. Severe dementia. HOSPITAL COURSE AND HISTORY OF PRESENT ILLNESS: Bandar Bustamante is a 76-year- old male with past medical history of CAD, status post CABG, CVA, complicated by continued expressive aphasia, severe dementia, who presented on 04/27/17 ( please see H and P for further details) with 2 occasions during prior 3 days prior to admission with inability to get out of his reclining chair with the assistance of his . She needed to call 2 other members of the family to help get him into bed. He also had a nonproductive cough. At baseline, he is able to ambulate with 1 person assistance into the house up a ramp ( approximately 60 paces) though this usually winds him. The patient was found to have a urinalysis suspicious for UTI in the ED and was empirically started on ceftriaxone IV 1 g q.24. His urine culture ultimately grew proteus mirabilis greater than 100,000, which was pansensitive to everything other than macrobid and tetracycline. He was discharged on Ceftin p.o. twice a day for a total antibiotic course of 7 days. He worked with physical therapy on hospital day # 2 through discharge and improved rapidly each day, ultimately being discharged from their service and was able to ambulate with a rolling walker down the [place] , getting back to his previous baseline. His diabetes was controlled with sliding scale insulin. DISPOSITION: home, His is investigating the acquisition of a "sit and and stand" device to help assist with further transfer issues in the future. DIET: carbohydrate consistent, unchanged. FOLLOWUP: He should follow up with Dr. Linton. DISCHARGE MEDICATIONS: Ceftin 250 mg p.o. b.i.d. for 3 days Plavix 75mg daily aricept 5mg daily lopressor 25mg bid metformin 1000mg qam miralax 17gm daily nystatin powder topical prn coenzyme q 200mg qam cholecalciferol 2000U daily tylenol 1000mg qpm prn Follow-up: He should see PCP Dr. Linton within the next week. [id number]/[facility] #: [id number] [place]
== END 2017-04-30 15:52 | disposition home or self-care (01) | DRG 690 ==
LOC: ED 13:01 → MEDTELE 18:16
PROVIDERS: ADMIT Internal Medicine; ATTEND Internal Medicine
DX: N39.0 Urinary tract infection, site not specified (principal); F03.90 Unspecified dementia, unspecified severity, without behavioral disturbance, psychotic disturbance, mood disturbance, and anxiety; B96.4 Proteus (mirabilis) (morganii) as the cause of diseases classified elsewhere; E11.9 Type 2 diabetes mellitus without complications; F32.9 Major depressive disorder, single episode, unspecified; I69.920 Aphasia following unspecified cerebrovascular disease; I25.10 Atherosclerotic heart disease of native coronary artery without angina pectoris; Z86.73 Personal history of transient ischemic attack (TIA), and cerebral infarction without residual deficits; Z88.2 Allergy status to sulfonamides; Z88.8 Allergy status to other drugs, medicaments and biological substances; J42 Unspecified chronic bronchitis; M19.90 Unspecified osteoarthritis, unspecified site; N40.0 Benign prostatic hyperplasia without lower urinary tract symptoms; Z86.14 Personal history of Methicillin resistant Staphylococcus aureus infection; Z82.49 Family history of ischemic heart disease and other diseases of the circulatory system; Z83.3 Family history of diabetes mellitus; Z95.5 Presence of coronary angioplasty implant and graft; Z79.02 Long term (current) use of antithrombotics/antiplatelets; Z79.84 Long term (current) use of oral hypoglycemic drugs
CPT/HCPCS: 36415; 71010; 80048; 80053; 81003; 81015; 83605; 84443; 84484; 85025; 85610; 87077; 87086; 87186; 87899; 90686; 93005; A9270-GY; J0456; J0696; J1650

== ENCOUNTER 2017-12-04 13:11 | Emergency (ER) | payer MEDICARE, OTHER ==
--- OUTSIDE RECORDS SUMMARY | 2017-12-04 13:48 | XMS REPORT ---
:1940 External Reference #:[id number] Author Organization [facility] Address [address] [address] Phone [phone] Care Team Providers Name Role Phone Marcelo Salazar MD Care Team Information Tub Washer Unavailable Darío Linton MD Primary Care Physician Unavailable Payers Type Date Identification Numbers Payment Provider Subscriber Medicare Primary Policy Number: [id number] Medicare Bandar Satley PayID: [id number] [address] [place] [address] [facility] Part B Policy Number: [id number] [facility] Bandar Staley Group Number: [id number] [address] PayID: [id number] [place] [address] Problems Date Description Provider Status Onset: 10/10/2013 Coronary arteriosclerosis Paige Garsia M.D. Active Onset: 10/10/2013 Essential hypertension Paige Garsia M.D. Active Onset: 10/10/2013 Mixed hyperlipidemia Paige Garsia M.D. Active Onset: 09/27/2014 Progressive aphasia in Alzheimer's Felicity Goldberg M.D. Active disease Social History Type Date Description Comments Marital Status Lives With Occupation Retired ETOH Use Occasionally consumes alcohol ETOH Use 1 a week Recreational Drug Use Never Used Drugs Smoking Patient has never smoked Daily Caffeine Does Not Consume Caffeine Exercise Type/Frequency Exercises sporadically General Hx Text Allergies, Adverse Reactions, Alerts Date Description Reaction Status Severity Comments 09/02/2013 Aspirin GI ulcers active 09/02/2013 Statins myalgias active 09/02/2013 IV Contrast rash, change in mentation active Lexiscan change in mentation 10/10/2013 Niacin Breaks out, rash, burning active can tolerate low dose skin sensation inside 10/02/2017 Demerol hallucination active 10/02/2017 Phenergan hallucination active Medications Medication Date Status Form Strength Qnty SIG Indications Ordering Provider Plavix 00/ Active Tablets 75mg 30tabs 1 po qd Unknown 0000 Versailles-3 Fish // Active Capsules 600Epa/240 1 po daily Unknown Oil 0000 Dha Metoprolol / Active Tablets 25mg 180tab 1 po bid Unknown Tartrate 0000 s Vitamin D3 / Active Capsules 5000Units 1 sofgel Unknown 0000 po qd Co Q10 / Active Capsules 200mg 90caps 1 by mouth Unknown 0000 every day Nystatin / Active Powder apply Unknown 0000 twice a day until rash clears Acetaminophen / Active Solution 650mg/20.3 Unknown 0000 ML Actos / Active Tablets 15mg once daily Unknown 0000 Melatonin / Active Capsules 20mg 1 tab by Unknown 0000 mouth at bedtime Cephalexin 10/07/ Hx Capsules 500mg 90caps take one Raymundo 2018 - capsule by Bi 11/11/ mouth Jeffrey 2018 three M.D. times a day Percocet 02/19/ Hx Tablets 5-325mg 42tabs 1 tab by Levi 2017 - mouth F 10/01/ every 6 Trinidad, 2018 hours as MD needed for pain. Namenda XR 09/27/ Hx Caps ER 28mg 30caps 1 by mouth 290.0 Felicity 2014 - 24HR every day Jefferyderibrahima, 12/26/ M.DAhmet 2014 Niaspan 02/28/ Hx Tablets ER 500mg 60tabs One tablet Paige 2012 - po daily [place], 10/09/ for one M.D. 2013 week, then increase to two tablets daily Red Yeast Rice / Hx Capsules 600mg 2 cap po Unknown 0000 - every day 2013 Metformin HCL / Hx Tablets 1000mg 180tab 1 po qd Unknown 0000 - s 2017 Exanthem / Hx t.i.d Unknown Postcava 0000 - 2013 Glipizide / Hx Tablets 5mg 60tabs 1 po qd Unknown 0000 - 2017 Versailles Q Plus / Hx 2 gels Unknown With 0000 - daily Resveratrol 2017 Vitamin E / Hx Capsules 400Unit 30caps 1 po qd Unknown 0000 - 2017 Vitamin K2 And / Hx mcg/2000Iu 1 daily Unknown D3 0000 - 2014 Diabetes Daily / Hx 1 pack Unknown Pack : 0000 - daily Nutritional 2014 Donepezil HCL / Hx Tablets 10mg 90tabs 1 by mouth Unknown 0000 - every day 2017 Niacin / Hx Tablets 500mg 30tabs 1 by mouth Unknown 0000 - every day 2014 Vital Signs Date Vital Result Comment 11/12/2017 Height 69 inches 5'9" Weight 175.00 lb per Heart Rate 60 /min BP Systolic Sitting 104 mmHg BP Diastolic Sitting 60 mmHg Respiratory Rate 14 /min Body Temperature 96.0 F BMI (Body Mass Index) 25.8 kg/m2 10/20/2017 Height 69 inches 5'9" Heart Rate 88 /min BP Systolic Sitting 108 mmHg BP Diastolic Sitting 76 mmHg Respiratory Rate 14 /min Body Temperature 96.7 F 10/02/2017 Height 69 inches 5'9" Weight 180.00 lb per 's report Heart Rate 60 /min BP Systolic Sitting 102 mmHg BP Diastolic Sitting 60 mmHg Respiratory Rate 14 /min Body Temperature 96.4 F BMI (Body Mass Index) 26.6 kg/m2 03/12/2017 Height 69 inches 5'9" Weight 180.00 lb Heart Rate 79 /min BP Systolic 132 mmHg BP Diastolic 69 mmHg Body Temperature 98.6 F BMI (Body Mass Index) 26.6 kg/m2 02/19/2017 Height 69 inches 5'9" Weight 180.00 lb BP Systolic 122 mmHg BP Diastolic 61 mmHg Respiratory Rate 15 /min Pain Level 8 BMI (Body Mass Index) 26.6 kg/m2 02/28/2015 Height 67 inches 5'7" Weight 186.25 lb Heart Rate 88 /min BP Systolic Sitting 110 mmHg BP Diastolic Sitting 70 mmHg Respiratory Rate 17 /min BMI (Body Mass Index) 29.2 kg/m2 12/27/2014 Height 67 inches 5'7" Weight 191.00 lb w/o shoes Heart Rate 94 /min BP Systolic Sitting 98 mmHg LA , reg BP Diastolic Sitting 64 mmHg LA , reg BP Systolic Standing 100 mmHg LA, reg BP Diastolic Standing 68 mmHg LA, reg BMI (Body Mass Index) 29.9 kg/m2 Ejection Fraction 50-60% 07/02/11 echo 12/27/2014 Height 67 inches 5'7" Ejection Fraction 50-60% 07/02/2011 09/27/2014 Height 67 inches 5'7" Weight 186.00 lb Heart Rate 64 /min BP Systolic Sitting 112 mmHg BP Diastolic Sitting 62 mmHg Respiratory Rate 16 /min BMI (Body Mass Index) 29.1 kg/m2 05/29/2014 Height 67 inches 5'7" Weight 187.00 lb with shoes Heart Rate 56 /min BP Systolic Sitting 100 mmHg LA reg cuff BP Diastolic Sitting 60 mmHg LA reg cuff BP Systolic Standing 108 mmHg La reg cuff BP Diastolic Standing 60 mmHg La reg cuff Respiratory Rate 16 /min BMI (Body Mass Index) 29.3 kg/m2 04/26/2014 Height 67 inches 5'7" Weight 180.00 lb Heart Rate 64 /min BP Systolic Sitting 100 mmHg BP Diastolic Sitting 60 mmHg Respiratory Rate 16 /min BMI (Body Mass Index) 28.2 kg/m2 10/10/2013 Height 67 inches 5'7" Weight 184.00 lb no shoes, decrease 4 Lbs from 02/28/13 Heart Rate 60 /min BP Systolic Sitting 102 mmHg LA, reg cuff BP Diastolic Sitting 62 mmHg LA, reg cuff BP Systolic Standing 96 mmHg BP Diastolic Standing 60 mmHg Respiratory Rate 14 /min BMI (Body Mass Index) 28.8 kg/m2 Results Test Date Test Result H/L Range Note CBC Auto Diff 11/09/2017 White Blood Count 6.3 10^3/uL 3.5-10.8 1 Red Blood Count 3.79 10^6/uL Low 4.0-5.4 1 Hemoglobin 12.6 g/dL Low 14.0-18.0 1 Hematocrit 38 % Low 42-52 1 Mean Corpuscular Volume 99 fL High 80-94 1 Mean Corpuscular Hemoglobin 33 pg High 27-31 1 Mean Corpuscular HGB Conc 34 g/dL 31-36 1 Red Cell Distribution Width 15 % 10.5-15 1 Platelet Count 124 10^3/uL Low 150-450 1 Mean Platelet Volume 10 um3 7.4-10.4 1 Abs Neutrophils 3.3 10^3/uL 1.5-7.7 1 Abs Lymphocytes 2.2 10^3/uL 1.0-4.8 1 Abs Monocytes 0.6 10^3/uL 0-0.8 1 Abs Eosinophils 0.2 10^3/uL 0-0.6 1 Abs Basophils 0.1 10^3/uL 0-0.2 1 Abs Nucleated RBC 0 10^3/uL 1 Granulocyte % 51.8 % 38-83 1 Lymphocyte % 34.7 % 25-47 1 Monocyte % 9.0 % High 0-7 1 Eosinophil % 3.6 % 0-6 1 Basophil % 0.9 % 0-2 1 Nucleated Red Blood Cells % 0.1 1 Comp Metabolic Panel 11/09/2017 Sodium 136 mmol/L 133-145 1 Chloride 108 mmol/L 101-111 1 Co2 Carbon Dioxide 21 mmol/L Low 22-32 1 Glucose 115 mg/dL High 70-100 1 Blood Urea Nitrogen 19 mg/dL 6-24 1 Creatinine 0.78 mg/dL 0.67-1.17 1 BUN/Creatinine Ratio 24.4 High 8-20 1 Calcium 9.0 mg/dL 8.6-10.3 1 Total Protein 5.9 g/dL Low 6.4-8.9 1 Albumin 3.4 g/dL 3.2-5.2 1 Globulin 2.5 g/dL 2-4 1 Albumin/Globulin Ratio 1.4 1-3 1 Total Bilirubin 0.70 mg/dL 0.2-1.0 1 Alkaline Phosphatase 59 U/L 34-104 1 Alt 17 U/L 7-52 1 Egfr Non- 97.3 >60 1 Egfr 125.1 >60 1, 2 Potassium TNP mmol/L 3.5-5.0 1, 3 Anion Gap 7 mmol/L 2-11 1 Ast TNP U/L 13-39 1, 4 Laboratory test finding 11/09/2017 C Reactive Protein 8.79 mg/L High < 5.00 1, 5 Comp Metabolic Panel 11/05/2017 Sodium 140 mmol/L 133-145 6 Potassium 3.8 mmol/L 3.5-5.0 6 Chloride 107 mmol/L 101-111 6 Co2 Carbon Dioxide 27 mmol/L 22-32 6 Anion Gap 6 mmol/L 2-11 6 Glucose 120 mg/dL High 70-100 6 Blood Urea Nitrogen 19 mg/dL 6-24 6 Creatinine 0.83 mg/dL 0.67-1.17 6 BUN/Creatinine Ratio 22.9 High 8-20 6 Calcium 9.3 mg/dL 8.6-10.3 6 Total Protein 6.2 g/dL Low 6.4-8.9 6 Albumin 3.9 g/dL 3.2-5.2 6 Globulin 2.3 g/dL 2-4 6 Albumin/Globulin Ratio 1.7 1-3 6 Total Bilirubin 0.80 mg/dL 0.2-1.0 6 Alkaline Phosphatase 52 U/L 34-104 6 Alt 13 U/L 7-52 6 Ast 16 U/L 13-39 6 Egfr Non- 90.6 >60 6 Egfr 116.5 >60 6, 7 Laboratory test finding 11/05/2017 C Reactive Protein 2.58 mg/L < 5.00 6, 8 CBC Auto Diff 10/06/2017 White Blood Count 7.7 10^3/uL 3.5-10.8 Red Blood Count 3.86 10^6/uL Low 4.0-5.4 Hemoglobin 12.8 g/dL Low 14.0-18.0 Hematocrit 38 % Low 42-52 Mean Corpuscular Volume 99 fL High 80-94 Mean Corpuscular Hemoglobin 33 pg High 27-31 Mean Corpuscular HGB Conc 34 g/dL 31-36 Red Cell Distribution Width 16 % High 10.5-15 Platelet Count 172 10^3/uL 150-450 Mean Platelet Volume 10 um3 7.4-10.4 Abs Neutrophils 4.8 10^3/uL 1.5-7.7 Abs Lymphocytes 2.0 10^3/uL 1.0-4.8 Abs Monocytes 0.6 10^3/uL 0-0.8 Abs Eosinophils 0.2 10^3/uL 0-0.6 Abs Basophils 0.1 10^3/uL 0-0.2 Abs Nucleated RBC 0 10^3/uL Granulocyte % 62.9 % 38-83 Lymphocyte % 25.9 % 25-47 Monocyte % 8.2 % 1-9 Eosinophil % 2.3 % 0-6 Basophil % 0.7 % 0-2 Nucleated Red Blood Cells % 0.1 Comp Metabolic Panel 10/06/2017 Sodium 141 mmol/L 133-145 Potassium 3.7 mmol/L 3.5-5.0 Chloride 108 mmol/L 101-111 Co2 Carbon Dioxide 25 mmol/L 22-32 Anion Gap 8 mmol/L 2-11 Glucose 158 mg/dL High 70-100 Blood Urea Nitrogen 23 mg/dL 6-24 Creatinine 0.90 mg/dL 0.67-1.17 BUN/Creatinine Ratio 25.6 High 8-20 Calcium 9.7 mg/dL 8.6-10.3 Total Protein 6.6 g/dL 6.4-8.9 Albumin 3.9 g/dL 3.2-5.2 Globulin 2.7 g/dL 2-4 Albumin/Globulin Ratio 1.4 1-3 Total Bilirubin 1.00 mg/dL 0.2-1.0 Alkaline Phosphatase 77 U/L 34-104 Alt 16 U/L 7-52 Ast 16 U/L 13-39 Egfr Non- 82.5 >60 Egfr 106.1 >60 9 Laboratory test 10/06/2017 C Reactive Protein 4.83 mg/L < 5.00 10 finding Laboratory test 10/02/2017 C Reactive Protein <pending&gt finding ; Wound Culture/Sensi 09/29/2017 Wound/Misc SEE RESULT 11 Culture-Gram Stain BELOW Laboratory test 09/29/2017 MRSA/S. aureus Ssti SEE RESULT 12 finding PCR BELOW Lipid Profile 03/15/2015 Triglycerides 227 mg/dL 13, 14 (Trig/Chol/HDL) Cholesterol 261 mg/dL 13, 15 HDL Cholesterol 34.2 mg/dL 13, 16 LDL Cholesterol 181 mg/dL 13, 17 Laboratory test 03/15/2015 Lipoprotein Profile/Quiroz 6 mg/dL <=30 13, 18 finding Lp(a) Comp Metabolic Panel 03/15/2015 Sodium 135 mmol/L 133-145 13 Potassium 4.1 mmol/L 3.5-5.0 13 Chloride 104 mmol/L 101-111 13 Co2 Carbon Dioxide 25 mmol/L 22-32 13 Anion Gap 6 mmol/L 2-11 13 Glucose 193 mg/dL High 70-100 13 Blood Urea Nitrogen 17 mg/dL 6-24 13 Creatinine 1.03 mg/dL 0.67-1.17 13 BUN/Creatinine Ratio 16.5 8-20 13 Calcium 9.2 mg/dL 8.6-10.3 13 Total Protein 6.6 g/dL 6.4-8.9 13 Albumin 4.3 g/dL 3.2-5.2 13 Globulin 2.3 g/dL 2-4 13 Albumin/Globulin Ratio 1.9 1-3 13 Total Bilirubin 0.70 mg/dL 0.2-1.0 13 Alkaline Phosphatase 47 U/L 34-104 13 Alt 18 U/L 7-52 13 Ast 14 U/L 13-39 13 Egfr Non- 71.0 >60 13 Egfr 91.3 >60 13, 19 Laboratory test finding 06/02/2014 LDL Cholesterol Direct 196 mg/dL 20 , 21 Ast 13 U/L 13-39 20, 22 Creatine Kinase 86 U/L 10-223 20, 23 Vitamin B12 And Folate Serum 05/08/2014 Vitamin B12 512 pg/mL 180-914 24 Folate 18.75 ng/mL >3.99 Laboratory test finding 11/14/2013 CRP High Sensitivity 2.32 mg/L 25 Laboratory test finding 11/14/2013 LDL Cholesterol Direct 160 mg/dL 26 Creatine Kinase 114 U/L 10-223 Miscellaneous Test 08/01/2013 Test Name LDL PARTICAL Result 2617 nmol/L Reference Range <1300 27 Lipoprotein Profile/Quiroz 08/01/2013 Lipoprotein Profile Apo 9 mg/dL < =30 28 APOa a Laboratory test finding 08/01/2013 CRP High Sensitivity 3.0 mg/L 29 Apolipoprotein B 145 mg/dL 48 - 124 30 Homocysteine 9 mcmol/L 31 Lipid Profile (Trig/Chol/HDL) 08/01/2013 Triglycerides 207 mg/dL High 40- 200 Cholesterol 255 mg/dL High Less than 200 HDL Cholesterol 36 mg/dL Low 40-60 32 Cholesterol/HDL Ratio 7.1 Average High 1-4.44 LDL Cholesterol 177.6 High Less Than 100 33 Throat Culture Full 11/09/2010 Throat Culture Full NF 34 MRSA/Vre Screen 11/09/2010 MRSA/Vre Culture NFICU 35, 36 Urine Culture & Sensitivi 11/09/2010 Urine Culture Sensitivi NF1 37, 38 1 [id number] 2 Because ethnic data is not always readily available, this report includes an eGFR for both -Americans and non- Americans. The National Kidney Disease Education Program (NKDEP) does not endorse the use of the MDRD equation for patients that are not between the ages of 18 and 70, are , have extremes of body size, muscle mass, or nutritional status, or are non- or non-. According to the National Kidney Foundation, irrespective of diagnosis, the stage of the disease is based on the level of kidney function: Stage Description GFR(mL/min/1.73 m(2)) 1 Kidney damage with normal or decreased GFR 90 2 Kidney damage with mild decrease in GFR 60-89 3 Moderate decrease in GFR 30-59 4 Severe decrease in GFR 15-29 5 Kidney failure <15 (or dialysis) 3 Specimen Hemolyzed. Result may not be valid. Unable to report test result due to hemolysis. 4 Unable to report test result due to hemolysis. 5 Acute inflammation: >10.00 6 [id number] 7 Because ethnic data is not always readily available, this report includes an eGFR for both -Americans and non- Americans. The National Kidney Disease Education Program (NKDEP) does not endorse the use of the MDRD equation for patients that are not between the ages of 18 and 70, are , have extremes of body size, muscle mass, or nutritional status, or are non- or non-. According to the National Kidney Foundation, irrespective of diagnosis, the stage of the disease is based on the level of kidney function: Stage Description GFR(mL/min/1.73 m(2)) 1 Kidney damage with normal or decreased GFR 90 2 Kidney damage with mild decrease in GFR 60-89 3 Moderate decrease in GFR 30-59 4 Severe decrease in GFR 15-29 5 Kidney failure <15 (or dialysis) 8 Acute inflammation: >10.00 9 Because ethnic data is not always readily available, this report includes an eGFR for both -Americans and non- Americans. The National Kidney Disease Education Program (NKDEP) does not endorse the use of the MDRD equation for patients that are not between the ages of 18 and 70, are , have extremes of body size, muscle mass, or nutritional status, or are non- or non-. According to the National Kidney Foundation, irrespective of diagnosis, the stage of the disease is based on the level of kidney function: Stage Description GFR(mL/min/1.73 m(2)) 1 Kidney damage with normal or decreased GFR 90 2 Kidney damage with mild decrease in GFR 60-89 3 Moderate decrease in GFR 30-59 4 Severe decrease in GFR 15-29 5 Kidney failure <15 (or dialysis) 10 Acute inflammation: >10.00 11 SEE RESULT BELOW Name: BANDAR STALEY : [address]: Chapin Gaxiola MD Acct: [id number] Unit: [id number] AGE: 76 Location: WOUND Re09/29/17 SEX: M Status: REG REF SPEC: [id number] KARISSA: 09/29/17-1513 [facility] DR: Chapin Gaxiola MD REQ: [id number] RECD: 09/29/17 STATUS: RES [place] DR: Raymundo Linton MD _ SOURCE: TOE SPDESC: ORDERED: Culture Stain QUERIES: Specimen Description LEFT GREAT TOE Procedure Result Reported Site Wound/Misc Gram Stain Preliminary 09/29/17- 1743 ML 1+ Epithelial Cells No Neutrophils Observed No Organisms Seen Wound/Misc Culture PENDING * ML - MAIN LAB ([facility]) . END OF REPORT * ML=Testing performed at Main Lab DEPARTMENT OF PATHOLOGY, [address] [place] [address] Bandar Vines M.D. Director [facility] # [id number] 12 SEE RESULT BELOW Name: BANDAR STALEY : [address]: Chapin Gaxiola MD Acct: [id number] Unit: [id number] AGE: 76 Location: WOUND Re09/29/17 SEX: M Status: REG REF SPEC: [id number] KARISSA: 09/29/17-151 [facility] [address]: Chapin Gaxiola MD REQ: [id number] RECD: 09/29/17 STATUS: SHAMAR WILLIS DR: Raymundo Linton MD _ SOURCE: TOE SPDESC: ORDERED: MRSA/SA SSTI, Culture Stain COMMENTS: Verbal to BRIE RICH RN. by [id number] at 1024 on 09/30/17. Results read back accurately. QUERIES: Specimen Description LEFT GREAT TOE Procedure Result Reported Site MRSA/S. aureus SSTI PCR Final 09/29/17- 1857 ML Organism 1 MRSA NEGATIVE Organism 2 S.AUREUS POSITIVE Wound/Misc Gram Stain Final 09/30/17- 0728 ML 1+ Epithelial Cells 1+ Neutrophils 1+ Gram Positive Cocci Wound/Misc Culture Final 10/01/17- 1024 ML Organism 1 STAPHYLOCOCCUS AUREUS Quantity 1+ 1. STAPHYLOCOCCUS AUREUS M.I.C. RX --------- ------ Penicillin 0.12 S Clindamycin R This isolate is presumed to be resistant based on detection of inducible Clindamycin resistance. Clindamycin may still be effective in some patients. Erythromycin >=8 R Gentamicin <=0.5 S CONTINUED ON NEXT PAGE * ML=Testing performed at Main Lab DEPARTMENT OF PATHOLOGY, [address] [place] [address] Bandar Vines M.D. Director [facility] # [id number] Patient: BANDAR STALEY [id number] (Continued) Specimen: [id number] Collected: 09/29/17-1514 Received: 09/29/17-1615 (Continued) Procedure Result Reported Site Wound/Misc Culture Final (continued) 10/01/17- 1024 1. STAPHYLOCOCCUS AUREUS (continued) M.I.C. RX --------- ------ Linezolid 2 S Nitrofurantoin <=16 S Oxacillin 0.5 S * Quinupristin/Dalfopristin <=0.25 S Rifampin <=0.5 S Tetracycline <=1 S Doxycycline - Deduced S * Minocycline - Deduced S Trimethoprim/Sulfamethoxazole <=10 S Vancomycin 1 S Imipenem-Deduced S * Ampicillin/Sulbactam-Deduced S Cefazolin-Deduced S * These antibiotics are not available in the [facility] Formulary Contact the Microbiology Department for any additional antibiotic reporting. * ML - MAIN LAB ([facility]) . END OF REPORT * ML=Testing performed at Main Lab DEPARTMENT OF PATHOLOGY, [address] [place] [address] Bandar Vines M.D. Director [facility] # [id number] 13 FASTING 14 Desirable <150 Borderline high 150-199 High 200-499 Very High >500 15 Desirable <200 Borderline high 200-239 High >239 16 Low <40 Desirable: 40-60 High: >60 17 Desirable: <100 mg/dL Near Optimal: 100-129 mg/dL Borderline High: 130-159 mg/dL High: 160-189 mg/dL Very High: >189 mg/dL 18 Test Performed by: [address] [address] [employer]: Ronaldo Marino II, M.D., Ph.D. 19 Because ethnic data is not always readily available, this report includes an eGFR for both -Americans and non- Americans. The National Kidney Disease Education Program (NKDEP) does not endorse the use of the MDRD equation for patients that are not between the ages of 18 and 70, are , have extremes of body size, muscle mass, or nutritional status, or are non- or non-. According to the National Kidney Foundation, irrespective of diagnosis, the stage of the disease is based on the level of kidney function: Stage Description GFR(mL/min/1.73 m(2)) 1 Kidney damage with normal or decreased GFR 90 2 Kidney damage with mild decrease in GFR 60-89 3 Moderate decrease in GFR 30-59 4 Severe decrease in GFR 15-29 5 Kidney failure <15 (or dialysis) 20 PT IS FASTING 21 Desirable <100 Near Optimal 100-129 Borderline high 130-159 High 160-189 Very High >189 22 PT IS FASTING 23 PT IS FASTING 24 Normal Range 180 to 914 Indeterminate Range 145 to 180 Deficient Range <145 25 Low risk: <1.0 mg/L Average risk: 1.0-3.0 mg/L High risk: >3.0 mg/L Acute inflammation: >10.0 mg/L 26 Desirable <100 Near Optimal 100-129 Borderline high 130-159 High 160-189 Very High >189 27 Total LDL Particle Concentration 2617 nmol/L <1300 H Interpretation See Comment Studies have shown that elevated LDL particle concentration is associated with increased risk for coronary heart disease. Increased concentrations of small LDL particles may be observed in association with the metabolic syndrome and pre-diabetes. Statins effectively reduce the number of LDL particles, but do not generally influence the size distribution of the LDL particles. Fibrates and niacin have been shown to increase LDL particle size. Test Performed by: [address] [address] [employer]: Nic Juarez III, M.D. 28 Test Performed by: [address] [address] [employer]: Nic Juarez III, M.D. 29 Less Than 1.0......Low Risk of Cardiovascular Disease 1.0-3.0............Medium Risk (<2 Fold Increase) Greater Than 3.0...High Risk (Approximately 2-Fold Increase) 30 Test Performed by: [address] [address] [employer]: Nic Juarez III, M.D. 31 -- REFERENCE VALUE -- <=13 (Fasting) Test Performed by: [address] [address] [employer]: Nic Juarez III, M.D. 32 HDL Interpretation: Undesirable: High Risk: Less than 40 mg/dL Desirable: Low Risk: Greater than 60 mg/dL 33 LDL Interpretation: Low Risk Optimal Level: LDL Less than 100 mg/dL Near or Above Optimal: LDL 100-129 mg/dL Borderline High Risk: LDL 130-159 mg/dL High Risk: LDL 160-189 mg/dL Very High Risk: LDL Greater than 189 mg/dL 34 NORMAL THROAT AUGUSTO 35 COMMENTS: NASOPHARYNGEAL SWAB 36 NO MRSA ISOLATED 37 SPECIMEN DESCRIPTION: URINE, CLEAN CATCH 38 SPECIMEN CONTAINS NORMAL URETHRAL OR PERINEAL AUGUSTO AND DOES NOT SUGGEST URINARY TRACT INFECTION Procedures Date CPT Code Description Status 10/27/2017 01101 Removal Devitalization Tissue Wound Less Than Equal 20 Completed Square CM 10/20/2017 49041 Removal Devitalization Tissue Wound Less Than Equal 20 Completed Square CM 10/15/2017 27164 Removal Devitalization Tissue Wound Less Than Equal 20 Completed Square CM 10/06/2017 04564 Removal Devitalization Tissue Wound Less Than Equal 20 Completed Square CM 09/29/2017 13507 Debridement Skin,& sq Tissue Completed 02/19/2017 94843 Closed TRTMT Clavicular Fracture Completed 06/11/2014 64849 EKG, Interpretation Only Completed 05/29/2014 27822 EKG Tracing & Interpretation Completed 10/10/2013 53201 EKG Tracing & Interpretation Completed 08/26/2012 36444 EKG Tracing & Interpretation Completed 03/03/2009 36256 EKG, Interpretation Only Completed 01/20/2009 42303 Treadmill Interp/Report Only Completed 01/20/2009 38453 Stress Test Supervsn W/Out I/R Completed Encounters Type Date Location Provider CPT E/M Dx [facility] 10[facility]a [facility] Uche Murphy M86.672 L97.521 E11.69 Office Visit 10/02/2017 9:50a [facility] Raymundo Pat 92476 E11.621 Infectious Diseases Uche Murphy L97.529 M86.672 Office Visit 07/03/2017 8:00a [facility] Makeda Zacarias M.D. 07875 E11.9 F03.90 I69.320 I10 R29.6 Office Visit 06/26/2017 9:45a [facility] Jessenia Crawley, [employer] SALES 30064 J06.9 Office Visit 06/23/2017 8:45a [facility] Shanna Chavez, OUTSIDE SALES 19564 F03.91 L03.032 Office Visit 06/22/2017 7:54a [facility], Lindsay Olmstead, 66995 L03.116 Hospitalists MAhmetDAhmet E11.9 I25.10 F03.90 Office Visit 06/21/2017 7:52a [facility], Lindsay Olmstead, 86066 L03.116 Hospitalists M.D. Office Visit 06/20/2017 7:50a [facility], Lindsay Olmstead, 54096 L03.116 Hospitalists M.D. E11.9 I25.10 F03.90 Office Visit 06/19/2017 7:45a [facility], Lindsay Omlstead, 55649 L03.116 Hospitalists M.DAhmet E11.9 I25.10 F03.90 Office Visit 06/18/2017 7:42a [facility], Gunner Sadler M.D. 02777 L03.116 Hospitalists E11.9 I25.10 F03.90 Office Visit 04/30/2017 11:17a [facility], [place] [address] N30.01 Hospitalists R53.1 I63.9 I25.10 Office Visit 04/29/2017 11:16a [facility], [place] [address] N30.01 Hospitalists R53.1 I63.9 I25.10 Office Visit 04/28/2017 11:15a [facility], [place] [address] N30.01 Hospitalists R53.1 I63.9 I25.10 Office Visit 04/27/2017 11:15a [facility],[place] [address] N30.01 Hospitalists R53.1 I63.9 I25.10 Office Visit 01/23/2017 9:45a [facility] Fercho Marzulla-Dulfer, 10575 R53.1 Assoc,pc [place] Hospitalists R41.82 E11.9 F03.90 Office Visit 01/22/2017 9:44a [facility] Fercho Marzulla-Dulfer, 60329 R53.1 Assoc,pc PA Hospitalists R41.82 E11.9 F03.90 Office Visit 01/21/2017 9:44a [facility] Fercho Marzulla-Dulfer, [address] R53.1 Assoc,pc [facility] Hospitalists R41.82 E11.9 F03.90 Office Visit 01/20/2017 9:43a [facility] Fercho Fionazulla-Dulfer, 43913 R53.1 Assoc,pc PA Hospitalists R41.82 E11.9 F03.90 Office Visit 01/19/2017 9:42a [facility] [address] R53.1 Hospitalists R41.82 E11.9 F03.90 Office Visit 01/19/2017 9:42a [facility] Fercho Marzulla-Dulfer, 68346 R53.1 Assoc,pc PA Hospitalists R41.82 E11.9 F03.90 Office Visit 01/18/2017 9:27a [facility] [address] R53.1 Hospitalists R41.82 E11.9 F03.90 Office Visit 07/20/2015 1:46p [facility] Maxwell Stalllisa, 07319 R09.02 Assoc,pc Hospitalists M.Bi E11.9 J20.9 F01.50 Office Visit 07/19/2015 1:46p [facility] Maxwell Stalllisa, 62143 R09.02 Assoc,pc Hospitalists MJackie E11.9 J20.9 F01.50 Office Visit 07/18/2015 1:45p [facility] [place], [address] R09.02 Assoc, Hospitalists [place] E11.9 J20.9 F01.50 Office Visit 02/28/2015 11:00a [facility] Felicity Goldberg M.D. 10590 290.0 [facility] 784.3 Office Visit 12/27/2014 3:00p [facility] FERNANDA Ulloa 94393 250.60 278.00 414.01 401.9 272.2 Office Visit 09/27/2014 3:30p [facility] Felicity Goldberg M.D. 18947 290.0 [facility] Office Visit 06/14/2014 12:54p [facility], Maxwell Tapia, 15758 785.4 Hospitalists [place] 250.60 278.00 Office Visit 06/13/2014 12:54p [facility] Maxwell Tapia, 29723 250.60 Assoc, Hospitaljose Ivey 785.4 278.00 Office Visit 06/12/2014 12:53p [facility], Maxwell Tapia, 53661 785.4 Hospitalists MJackie 250.60 278.00 Office Visit 06/11/2014 12:53p [facility], Maxwell Tapia, 91393 785.4 Hospitalists MJackie 250.60 278.00 785.4 250.60 Office Visit 06/10/2014 12:52p [facility], Maxwell Tapia, 55065 785.4 Hospitalists MJackie 250.60 278.00 Office Visit 05/29/2014 3:45p [facility] Paige Garsia M.D. 15502 414.01 [facility] 401.9 272.2 Office Visit 04/26/2014 9:00a [facility] Felicity Goldberg M.D. 27622 799.59 [facility] 784.3 718.46 250.60 357.2 Office Visit 10/10/2013 8:00a [facility] Paige Garsia M.D. 54909 414.01 Ac[facility] 401.9 272.2 Office Visit 06/16/2013 8:47a [facility], Chapin Hinson 60084 786.50 Hospitalists [place] Whitman 789.04 553.20 250.00 Office Visit 06/16/2013 8:59a [facility] Paige Garsia M.D. 74191 786.59 [facility] 414.02 Office Visit 06/15/2013 8:46a [facility] Makeda Zacarias, 82263 786.50 Assoc,pc Hospitalists [place] 789.04 553.20 250.00 Office Visit 06/15/2013 11:29a [facility] Jack England M.D., 10067 786.59 [employer] FACC, FSCAI 786.05 Office Visit 02/28/2013 9:45a [facility] Paige Garsia M.D. 64713 414.01 Ac[facility] Dancer 401.9 Office Visit 08/26/2012 9:00a [facility] Paige Garsia M.D. 55068 414.01 [facility] 786.09 272.2 780.4 250.00 Office Visit 03/04/2009 3:15a [facility] Eda Onofre M.D. 53976 786.59 Assoc,pc Hospitalists 486 Office Visit 03/03/2009 1:45a [facility] Nick Sosa, 48160 427.89 Hospitalists MJackie 786.50 Office Visit 03/02/2009 1:45a [facility] Nick Sosa, 10434 490 Hospitalists M.D. Office Visit 03/01/2009 2:00a [facility] Ambrocio Haley, 77446 786.59 Hospitalists M.DAhmet 486 Office Visit 02/28/2009 2:15a [facility] Ambrocio Haley, 13942 786.59 Hospitalists M.DAhmet 486 Office Visit 02/27/2009 2:45a [facility] Ambrocio Haley, 00371 786.59 Assoc,pc Hospitalists M.D. Office Visit 02/26/2009 12:45a [facility] Makeda Zacarias, 30355 786.59 Assoc,pc Hospitalists M.DAhmet 486 Office Visit 01/24/2009 2:45a [facility] Deven Crain M.D. 26481 786.59 Hospitalists Office Visit 01/23/2009 2:[address]a [facility], Deven Crain M.D. 16376 786.59 Hospitalists Office Visit 01/22/2009 2:[address]a [facility], Levi Byrd, 95683 786.59 Hospitalists M.D. Office Visit 01/21/2009 3:00a [facility], Levi Byrd, 06377 786.59 Hospitalists M.D. Office Visit 01/20/2009 1:[address] [facility], Levi Byrd, 99957 786.50 Hospitalists M.D. Office Visit 01/19/2009 2:45a [facility], Eda Onofre, 78298 786.50 Hospitalists M.D. Office Visit 01/18/2009 12:30a [facility], Ramón Yeh M.D. 06989 786.59 Hospitalists Plan of Care 11/12/2017 - Raymundo Murphy M.D.E11.621 Type 2 diabetes mellitus with foot ulcerComments:call if return of ulcer or eezvtorK78.672 Other chronic osteomyelitis, left ankle and foot
[2017-12-04 14:27] LABS: ABS Basophils 0.1 10^3/ul (0-0.2); ABS Eosinophils 0.1 10^3/ul (0-0.6); ABS Lymphocytes 1.7 10^3/ul (1.0-4.8); ABS Monocytes 0.8 10^3/ul (0-0.8); ABS Neutrophils 4.1 10^3/ul (1.5-7.7); ABS Nucleated RBC 0 10^3/ul; Eosinophil % 1.6 % (0-6); Hematocrit 45 % (42-52); Mean Corpuscular HGB Conc 34 g/dl (31-36); Mean Corpuscular Hemoglobin 33 pg (27-31); Mean Corpuscular Volume 98 fL (80-94); Nucleated Red Blood Cells % 0; Platelet Count 122 10^3/ul (150-450); Red Blood Count 4.53 10^6/ul (4.0-5.4); Red Cell Distribution Width 15 % (10.5-15); White Blood Count 6.8 10^3/ul (3.5-10.8)
[2017-12-04 14:29] LABS: Urine Appearance Clear; Urine Blood Negative (Negative); Urine Color Yellow; Urine Ketones 1+ (Negative); Urine Protein Negative (Negative); Urine Specific Gravity 1.029 (1.010-1.030); Urine Urobilinogen Positive (Negative)
[2017-12-04 14:45] LABS: EGFR Non-African American 97.3 (>60)
[2017-12-04] MEDS ORDERED: ValACYclovir (*) 1 GM TAB PO ONE (14:49)
[2017-12-04 17:07] VITALS: BP 100/61
--- NOTE | 2017-12-04 17:11 | ED ---
Eddie Barros Thomas, scribed for Maddy Menjivar MD on 12/04/17 at 1342 . Skin Complaint - HPI Summary HPI Summary: The patient is a 76 year old male brought in by ambulance from his home where he lives with . He presents with a rash over his right upper back, right shoulder, and right arm. These lesions do not cross the midline. He denies any abdominal pain. He is nonverbal and his upper and lower extremities are flexed and contracted. He answers questions with yes and no. Per his , pt was first seen with upper back lesions 2 days ago and progressively worsened and appeared down his right arm, assisted down to his forearm. - History of Current Complaint Chief Complaint: EDRashSkinAbscess Time Seen by Provider: 12/04/17 13:28 Stated Complaint: RASH,LOW TEMP Hx Obtained From: Patient, EMS Onset/Duration: Still Present Timing: Constant Current Severity: Moderate Skin Location: Other: - right upper back, right shoulder, right arm Character: Pain Alleviating Symptom(s): Nothing Associated Signs & Symptoms: Negative - fever - Additional Pertinent History Primary Care Physician: [id number] - Allergy/Home Medications Allergies/Adverse Reactions: Allergies Allergy/AdvReac Type Severity Reaction Status Date / Time MS Niacin [Niacin] Allergy Rash And Verified 02/18/17 14:52 Itching MS Sulfa Drugs [Sulfa Drugs] Allergy Unknown Verified 02/18/17 14:52 Reaction Details MS Meperidine AdvReac Intermediate Hallucinati Verified 02/18/17 14:52 [From Demerol HCl] on MS Promethazine AdvReac Intermediate Hallucinati Verified 02/18/17 14:52 [From Phenergan] on contrast dye AdvReac Intermediate Hallucinati Uncoded 02/18/17 14:52 on PMH/Surg Hx/FS Hx/Imm Hx Endocrine/Hematology History: Reports: Hx Diabetes Cardiovascular History: Reports: Hx Coronary Artery Disease, Other Cardiovascular Problems/Disorders - HX OF STROKE IN 2002 Denies: Hx Congestive Heart Failure, Hx Hypertension, Hx Pacemaker/ICD Respiratory History: Reports: Hx Chronic Bronchitis - sev. bouts of , early , Hx Pneumonia - late s early Denies: Hx Asthma, Other Respiratory Problems/Disorders GI History: Reports: Hx Hiatal Hernia, Hx Ulcer - d/t motrin, Other GI Disorders - perforated bowel History: Reports: Hx Benign Prostatic Hyperplasia, Other Problems/ Disorders - BPH Musculoskeletal History: Reports: Hx Arthritis - Knee surgeries, Hx Back Problems - L4 and L5 (laminectomy), Other Musculoskeletal History - RIght big toe deformity leading to surgery Sensory History: Denies: Hx Contacts or Glasses, Hx Hearing Aid Opthamlomology History: Denies: Hx Contacts or Glasses Neurological History: Reports: Hx CVA, Hx Dementia Denies: Other Neuro Impairments/Disorders Psychiatric History: Reports: Hx Depression Denies: Hx Panic Disorder - Surgical History Surgery Procedure, Year, and Place: hernia repair 2002, perforated bowel 2003 all umbilical area[facility] [place] laminectomy, Knee surgeries bilateral, two surgeries on right foot,hiatal hernia repair. , removal of infected tissue from bed sores and surgical site Hx Anesthesia Reactions: No Infectious Disease History: No Infectious Disease History: Reports: History Other Infectious Disease - HX of MRSA in 2002 Denies: Hx of Known/Suspected MRSA, Traveled Outside the in Last 30 Days - Family History Known Family History: Positive: Cardiac Disease - father D in 60s., Diabetes - Social History Lives: With Family Alcohol Use: None Alcohol Amount: ONCE A WEEK OR EOW Substance Use Type: Reports: None Smoking Status (MU): Never Smoked Tobacco Review of Systems Negative: Fever Negative: Abdominal Pain Positive: Rash All Other Systems Reviewed And Are Negative: Yes Physical Exam - Summary Physical Exam Summary: Appearance: Elderly. He is nonverbal and his upper and lower extremities are flexed and contracted. He answers questions with yes and no. Skin: He has erythematous vesicular crusted lesions over the right upper back, right shoulder, and upper right arm to the mid forearm. These lesions do not cross the midline. Eyes: Normal ENT: Normal Neck: Supple, nontender Respiratory: Clear to auscultation Cardiovascular: Regular rate, regular rhythm. Normal S1, S2. Abdomen: Soft, nontender Musculoskeletal: His upper and lower extremities are flexed and contracted. Neurological: He is nonverbal and he answers questions with yes and no. Psychiatric: Normal General: No acute distress Triage Information Reviewed: Yes Vital Signs On Initial Exam: Initial Vitals Temp Pulse Resp BP Pulse Ox 98.4 F 94 18 97/62 97 12/04/17 13:21 12/04/17 13:21 12/04/17 13:21 12/04/17 13:21 12/04/17 13:21 Vital Signs Reviewed: Yes Neurological: Positive: Other - Flexed and contracted UE and LE Diagnostics - Vital Signs Vital Signs Temp Pulse Resp BP Pulse Ox 12/04/17 13:30 94 18 102/55 97 12/04/17 13:24 96 19 97/62 98 12/04/17 13:22 83 17 96 12/04/17 13:21 98.4 F 94 18 97/62 97 - Laboratory Result Diagrams: 12/04/17 14:16 12/04/17 14:16 Lab Statement: Any lab studies that have been ordered have been reviewed, and results considered in the medical decision making process. Course/Dx - Course Course Of Treatment: Urinalysis and labs are negative. informed of results. She is palnning home hospice. Pt to be d/c'd with outpt PO valtrex 1g TID x 1 week, 1st dose given in ED - Diagnoses Provider Diagnoses: Herpes zoster Discharge - Sign-Out/Discharge Documenting (check all that apply): Discharge - Discharge Plan Condition: Stable Disposition: HOME Prescriptions: ValACYclovir (*) [Valtrex 1 GM(*)] 1 gm PO TID 7 Days #20 tab Patient Education Materials: Shingles (ED) Referrals: Darío Linton MD [Primary Care Provider] - Additional Instructions: please take medication as directed - Billing Disposition and Condition Condition: STABLE Disposition: HOME The documentation as recorded by the Eddie greenfield Thomas accurately reflects the service I personally performed and the decisions made by , Maddy Menjivar MD.
== END 2017-12-04 16:47 | disposition home or self-care (01) ==
LOC: ED 13:11
DX: B02.9 Zoster without complications (principal); E11.9 Type 2 diabetes mellitus without complications; I25.10 Atherosclerotic heart disease of native coronary artery without angina pectoris; Z86.73 Personal history of transient ischemic attack (TIA), and cerebral infarction without residual deficits
CPT/HCPCS: 36415; 80053; 81003; 85025; 99283; A9270-GY

== ENCOUNTER 2017-12-18 13:58 | Inpatient (IN) | payer MEDICARE, OTHER ==
[2017-12-18 14:48] LABS: ABS Basophils 0.1 10^3/ul (0-0.2); ABS Eosinophils 0.1 10^3/ul (0-0.6); ABS Lymphocytes 2.2 10^3/ul (1.0-4.8); ABS Monocytes 0.8 10^3/ul (0-0.8); ABS Neutrophils 8.2 10^3/ul (1.5-7.7); ABS Nucleated RBC 0 10^3/ul; Eosinophil % 0.7 % (0-6); Hematocrit 44 % (42-52); Hemoglobin 14.7 g/dl (14.0-18.0); Lymphocyte % 19.1 % (25-47); Mean Corpuscular HGB Conc 33 g/dl (31-36); Mean Corpuscular Hemoglobin 33 pg (27-31); Mean Corpuscular Volume 99 fL (80-94); Mean Platelet Volume 8.8 um3 (7.4-10.4); Nucleated Red Blood Cells % 0; Platelet Count 150 10^3/ul (150-450); Red Blood Count 4.41 10^6/ul (4.0-5.4); Red Cell Distribution Width 15 % (10.5-15); White Blood Count 11.3 10^3/ul (3.5-10.8)
--- NOTE | 2017-12-18 15:00 | RAD ---
INDICATION: Cough. COMPARISON: Comparison is made with a prior study from April 27, 2017. TECHNIQUE: A portable view of the chest was obtained. FINDINGS: The heart appears within normal limits in size for this portable exam. There is elevation of the right hemidiaphragm which is unchanged. The lungs are underinflated. There are small bibasilar infiltrates. No pleural effusion is seen. IMPRESSION: LOW LUNG VOLUMES, SMALL BIBASILAR INFILTRATES.
[2017-12-18 15:06] LABS: EGFR Non-African American 80.2 (>60)
[2017-12-18] MEDS ORDERED: NS 0.9% 1000 ML* 1,000 ML IV ONE (15:17)
[2017-12-18] MEDS ORDERED: cefTRIAXone(*) 1 GM in NS 0.9% 50 ML* 50 ML IVPB ONE (15:21)
[2017-12-18] MEDS ORDERED: Azithromycin IV(*) 500 MG in NS 0.9% 250 ML* 250 ML IVPB ONE (16:00)
[2017-12-18] MEDS ORDERED: Acetaminophen TAB* 325 MG PO PRN (16:38)
[2017-12-18] MEDS ORDERED: NS 0.9% 1000 ML* 1,000 ML IV SCH (16:45)
[2017-12-18] MEDS ORDERED: Piperacillin/Tazobac ADVAN(*) 3.375 GM in NS 0.9% 100 ML* 100 ML IVPB ONE (16:58)
[2017-12-18] MEDS ORDERED: Zosyn per Pharmacy* NOTE FOLLOW UP SCH (17:00)
--- NOTE | 2017-12-18 18:35 | ED ---
Deni Barros Julia, scribed for Ade Gan MD on 12/18/17 at 1418 . Altered Mental Status - HPI Summary HPI Summary: This patient is a 77 year old M BIBA to [facility] from home/hospice care. Medical records reviewed. Pt is limited care, DNI, abx use as needed. reports this morning he was unable to sit up in bed. She was attempting to fed him puree and he had a choking event. She would like to make sure that he has not aspirated. She reports recent productive cough with difficulty breathing. reports he has gotten progressively weaker over the past few months. She states he typically does not speak at baseline but can make small statements, such as Thank you, secondary to CVA in 2002, but recently he has difficulty speaking at all. She reports recent shingles on 12/04/17 that resolved with medications. She reports a recent infection of his toe in October that is currently resolved. He has scratched his LUE a few nights ago. She states hospice care has been ordered by his physician but no one is able to provide care for the next two weeks. She states she agrees to admission if necessary, but wants to be able to take him home to care for him. HPI is limited. Patient is LEVEL 5 caveat due to dementia. - History Of Current Complaint Stated Complaint: AMS Time Seen by Provider: 12/18/17 14:02 Hx Obtained From: Family/Test Baker, Medical Records Hx From Patient Unobtainable Due To: Altered Mental Status Onset/Duration: Gradually Timing: Constant Alleviating Factor(s): Nothing Related History: Similar Episode/Diagnosed As: - CVA, alzheimers dementia - Allergies/Home Medications Allergies/Adverse Reactions: Allergies Allergy/AdvReac Type Severity Reaction Status Date / Time Iodinated Contrast- Oral and Allergy Hallucinati Verified 12/18/17 16:29 IV Dye ons meperidine Allergy Hallucinati Verified 12/18/17 16:29 ons niacin Allergy Rash And Verified 12/18/17 16:28 Itching promethazine Allergy Hallucinati Verified 12/18/17 16:29 ons Sulfa (Sulfonamide Allergy Unknown Verified 12/18/17 16:28 Antibiotics) Reaction Details Home Medications: Home Medications Pioglitazone TAB* [Actos TAB*] 15 mg PO DAILY 12/18/17 [History Confirmed ] PMH/Surg Hx/FS Hx/Imm Hx Endocrine/Hematology History: Reports: Hx Diabetes Cardiovascular History: Reports: Hx Coronary Artery Disease, Other Cardiovascular Problems/Disorders - HX OF STROKE IN 2002 Denies: Hx Congestive Heart Failure, Hx Hypertension, Hx Pacemaker/ICD Respiratory History: Reports: Hx Chronic Bronchitis - sev. bouts of , early , Hx Pneumonia - late early Denies: Hx Asthma, Other Respiratory Problems/Disorders GI History: Reports: Hx Hiatal Hernia, Hx Ulcer - d/t motrin, Other GI Disorders - perforated bowel History: Reports: Hx Benign Prostatic Hyperplasia, Other Problems/ Disorders - BPH Musculoskeletal History: Reports: Hx Arthritis - Knee surgeries, Hx Back Problems - L4 and L5 (laminectomy), Other Musculoskeletal History - RIght big toe deformity leading to surgery Sensory History: Denies: Hx Contacts or Glasses, Hx Hearing Aid Opthamlomology History: Denies: Hx Contacts or Glasses Neurological History: Reports: Hx CVA, Hx Dementia Denies: Other Neuro Impairments/Disorders Psychiatric History: Reports: Hx Depression Denies: Hx Panic Disorder - Surgical History Surgery Procedure, Year, and Place: hernia repair 2002, perforated bowel 2003 all umbilical area[facility] [place] laminectomy, Knee surgeries bilateral, two surgeries on right foot,hiatal hernia repair. , removal of infected tissue from bed sores and surgical site Hx Anesthesia Reactions: No Infectious Disease History: Yes Infectious Disease History: Reports: Hx Shingles, History Other Infectious Disease - HX of MRSA in 2002 Denies: Hx of Known/Suspected MRSA - Family History Known Family History: Positive: Cardiac Disease - father D in 60s., Diabetes - Social History Lives: With Family Alcohol Use: None Substance Use Type: Reports: None Smoking Status (MU): Never Smoked Tobacco Review of Systems Positive: Cough, Other - difficulty breahting Neurological: Other - AMS All Other Systems Reviewed And Are Negative: No - Comments Additional Review of Systems Comments: ROS is limited. Level 5 Caveat. Physical Exam - Summary Physical Exam Summary: GENERAL: Patient is a well developed and nourished M who is lying comfortable in the stretcher. Patient is not in any acute respiratory distress. HEAD AND FACE: Normocephalic NECK: Supple, trachea is midline, no adenopathy, no JVD, no carotid bruit. CHEST: Symmetric, no tenderness at palpation LUNGS: Clear to auscultation bilaterally. No wheezing or crackles. CVS: Regular rate and rhythm, S1 and S2 present, no murmurs or gallops appreciated. ABDOMEN: Soft, non-tender. Bowel sounds are normal. No abdominal abnormal pulsations. EXTREMITIES: Full ROM in all major joints, no edema, no cyanosis or clubbing. NEURO: limited due to baseline dementia SKIN: Dry and warm Triage Information Reviewed: Yes Vital Signs Reviewed: Yes Diagnostics - Laboratory Result Diagrams: 12/18/17 14:36 12/18/17 14:36 Lab Statement: Any lab studies that have been ordered have been reviewed, and results considered in the medical decision making process. - Radiology CXR Radiology Interpretation Completed By: Radiologist - LOW LUNG VOLUMES, SMALL BIBASILAR INFILTRATES. ED Physician has reviewed this report. - EKG 1438 Cardiac Rate: NL EKG Rhythm: Sinus Rhythm - 97 BPM EKG Interpretation: Q waves in inferior leads Re-Evaluation - Re-Evaluation 1 Re-Evaluation Time: 15:38 Comment: Pt is doing better. Blood pressure is improved. Altered Mental Statu Course/Dx - Course Course Of Treatment: 77 y/o M BIBA from home with hx of CVA and dementia. was concerned for possible aspiration due to a choking choking event. She reports significant coughing today. Workup is remarkable for Mild leukocytosis, WBC 11, BUN creatnine ratio of 11 consistent with dehydration. CXR reveals bilateral basilar infiltrates. Upon arrival pt is mildly hypotensive and tachycardic. Pt is given IV fluids and IV abx, with much improvement in BP and HR, pt was subsequently admitted to hospitalist, Dr. Tapia. Communicated with Dr. Tapia that is entrusted with home hospice once stabilized. - Diagnoses Provider Diagnoses: PNA (pneumonia) - Provider Notifications Discussed Care Of Patient With: Maxwell Tapia - hospitalist Time Discussed With Above Provider: 16:30 Instructed by Provider To: Admit As Inpatient Discharge - Sign-Out/Discharge Documenting (check all that apply): Discharge/Admit/Transfer - admit - Discharge Plan Condition: Stable Disposition: ADMITTED TO [facility] The documentation as recorded by the Deni greenfield Julia accurately reflects the service I personally performed and the decisions made by me, Ade Gan MD.
[2017-12-18] MEDS ORDERED: NS 0.9% 500 ML* 500 ML IV ONE (18:43)
[2017-12-18] MEDS ORDERED: Metoprolol Tartrate TAB* 25 MG PO SCH (21:00)
[2017-12-18] MEDS: Morphine VIAL* 4 MG/ML VIAL (1 ml vial) IV PRN (21:20)
[2017-12-18] MEDS ORDERED: Heparin VIAL(*) 5000 UNITS/ML VIAL (FIVE THOUSAND) SUBCUT SCH (22:00)
[2017-12-18] MEDS ORDERED: Morphine VIAL* 4 MG/ML VIAL (1 ml vial) IV ONE (22:14)
[2017-12-18] MEDS ORDERED: Piperacillin/Tazobactam 13.5 GM IV 24 hour continuous infusion IVPB SCH ×2 (22:30)
[2017-12-19] MEDS ORDERED: Furosemide IV* 10 MG/ML 2 ML VIAL (20 MG) IV ONE (03:30)
[2017-12-19] MEDS ORDERED: Furosemide IV* 10 MG/ML 2 ML VIAL (20 MG) ONE (03:37)
[2017-12-19] MEDS: Morphine VIAL* 4 MG/ML VIAL (1 ml vial) IV PRN (04:07)
[2017-12-19] MEDS ORDERED: Acetaminophen SUPP* 650 MG SUPP PR PRN (04:22)
--- NOTE | 2017-12-19 04:27 | PN ---
Progress Note - Progress Note Date of Service: 12/19/17 Note: Hospice patient admitted for IV ABX to attempt to stabilize and return to home hospice. However, despite today's therapies he has entered a rapid decline with escalating tachycardia, hypoxia, and obtundation. At this time, he is non- communicative and his is at the bedside. I have informed her that he is actively passing away and continuing treatment will likely only prolong his passing. She spoke with her son over the phone and they agreed to shift the goal of care from stabilization to end-of-life comfort-only. Rodolfo SHAVER filled out. Manage expectantly.
[2017-12-19] MEDS: Atropine 1% (ORAL/SL)* 15 ML BTL SL PRN ×2 (04:38→05:39)
[2017-12-19] MEDS: Morphine PCA ADULT* 5 MG/ML 30 ML PCA SCH (05:26)
[2017-12-19] MEDS ORDERED: Clopidogrel TAB* 75 MG PO SCH (09:00)
[2017-12-19 10:19] VITALS: BP 96/61
--- NOTE | 2017-12-19 14:22 | PN ---
Subjective Date of Service: 12/19/17 Interval History: . Events overnight noted. Please see Dr. Tello's note. Patient now on comfort care, at bedside. request for clerical office worker visit made. patient appears comfortable. comfort care order placed in accordance with patient's 's wishes. patient unresponsive. Family History: Unchanged from Admission Social History: Unchanged from Admission Past Medical History: Unchanged from Admission Objective Active Medications: . Acetaminophen (Tylenol Supp*) 650 mg MN Q6H PRN PRN Reason: FEVER/PAIN Last Admin: 12/19/17 06:15 Dose: 650 mg Atropine Sulfate (Atropine 1% (Oral/Sl)*) 2 drop SL Q30M PRN PRN Reason: DISCOMFORT Last Admin: 12/19/17 05:39 Dose: 2 drp Morphine Sulfate (Morphine Etl Consultant Adult* 5 Mg/Ml) 30 mls @ 0 mls/hr INGOT CAR OPERATOR .change Q24H STEVE; Per Protocol PRN Reason: Protocol Last Admin: 12/19/17 05:26 Dose: 1 mls/hr . Vital Signs - 8 hr 12/19/17 12/19/17 12/19/17 07:14 07:35 07:37 Temperature 100.0 F Pulse Rate 145 146 Respiratory 24 24 24 Rate Blood Pressure 96/61 (mmHg) O2 Sat by Pulse 90 90 Oximetry 12/19/17 12/19/17 08:00 10:00 Temperature Pulse Rate Respiratory 24 18 Rate Blood Pressure (mmHg) O2 Sat by Pulse Oximetry Oxygen Devices in Use Now: Nasal Cannula Appearance: obtunded, unresponsive. Eyes: No Scleral Icterus Ears/Nose/Mouth/Throat: Clear Oropharnyx Neck: NL Appearance and Movements; NL JVP Respiratory: Symmetrical Chest Expansion and Respiratory Effort Cardiovascular: NL Sounds; No Murmurs; No JVD Abdominal: NL Sounds; No Tenderness; No Distention Lymphatic: No Cervical Adenopathy Extremities: No Edema Skin: No Rash or Ulcers Neurological: Alert and Oriented x 3 Lines/Tubes/Other Access: Clean, Dry and Intact Peripheral IV Nutrition: Taking PO's Result Diagrams: 12/18/17 14:36 12/18/17 14:36 Assess/Plan/Problems-Billing . Assessment: 77 yo man on comfort care - admitted for aspiration pneumonia - Patient Problems (1) Palliative care status Current Visit: Yes Status: Acute Priority: High Code(s): Z51.5 - ENCOUNTER FOR PALLIATIVE CARE Comment: - morphine silk conditioner - ativan, prn - atorpine - tylenol, prn - Dedicated 25 minute face to face discussion with patient's about goals of care and palliative approach. - She is at peace with her 's imminent and is making calls to family and friends. - Courtesy call to gene for visit to be arranged. - clerical office worker visit - total case time 12/19 was 35 minutes - comfort care status
--- NOTE | 2017-12-19 18:05 | HP ---
CC: Dr. Linton; Dr. Avila ADMISSION HISTORY AND PHYSICAL: DATE OF ADMISSION: 12/18/17 TIME OF MY EVALUATION: 4:00 p.m. PRIMARY CARE PROVIDER: Dr. Darío Linton. HOSPICARE: Dr. Shawna Avila. CHIEF COMPLAINT: Obtundation/respiratory distress. HISTORY OF PRESENT ILLNESS: Mr. Bustamante is a 77-year-old gentleman cared for in his home by his with a complex medical history including severe dementia and he presents to [facility] with respiratory distress. There was a choking event despite him being fed a pureed diet. The patient was scheduled to enroll in outpatient hospice today, but there was not a nurse to complete the enrolment that was also before the aspiration event and services were not in place to palliate the patient during this time. The patient did have a chest x-ray showing a right lower lobe infiltrate. There was productive coughing and difficulty breathing subsequent to the aspiration event, the patient does not speak at baseline and can only make simple statements such as thank you and hello. The patient had suffered a stroke back in 2002 and has had progressive difficulty speaking. The patient's is his primary child care education coordinator. The patient had a recent bout of shingles earlier in November. He also has an ongoing infection on his toes that is being followed. He has been on antibiotics. The patient is being admitted for symptom management and to treat his aspiration pneumonia with the hopes that he can get past this aspiration event and enroll in hospice when the resources become available. PAST MEDICAL HISTORY: 1. CVA, 2002, with expressive aphasia subsequent to 2014. 2. Dementia - severe. 3. Diabetes mellitus. 4. Multiple pneumonias. 5. Coronary disease, status post stent in 2006. 6. History of frostbite of the foot. OUTPATIENT MEDICATIONS: Reconciliation needs finalization, but medications include: 1. Tylenol 325 mg by mouth as needed. 2. Metoprolol tartrate 25 mg by mouth twice daily. 3. Aricept 5 mg by mouth daily. 4. Co-enzyme Q10 200 mg by mouth in the morning. 5. Plavix 75 mg by mouth daily. 6. Cholecalciferol 2000 units by mouth in the morning. 7. Metformin 1000 units by mouth in the morning. 8. MiraLAX 17 g by mouth daily. 9. [place]-3 fatty acid 2000 mg in the morning. 10. Nystatin topical powder multiple times per day. ALLERGIES/ADVERSE REACTIONS: Including to SULFA, MEPERIDINE, PROMETHAZINE, IV CONTRAST. SOCIAL HISTORY: The patient lives with his in [place], [place]. The patient denies tobacco, alcohol, or recreational drug use per his . The patient's , Aliza Lucas, is his healthcare proxy and emergency contact. The patient is a DNR status. He has a MOLST that has been completed and is now updated for this hospitalization. REVIEW OF SYSTEMS: A full 14-point review of systems was reviewed with the patient's . There were no pertinent positives other than what was mentioned in the HPI and past medical history. PHYSICAL EXAMINATION On admission: GENERAL APPEARANCE: Elderly man, obtunded, no apparent distress. VITAL SIGNS: Temperature 98.6 Fahrenheit, pulse 100, respirations 23 and labored, oxygen saturation 97% on 2 L, blood pressure 98/60. HEENT: Oropharynx is clear. Mucous membranes are moist. NECK: Supple. No elevated JVD. CHEST: Rhonchorous breath sounds, right greater than left. ABDOMEN: Soft and nontender. NEURO: Unable to assess. PSYCH: Unable to assess. LYMPH: No adenopathy. SKIN: Dry and intact except on his left foot that has a dressed healing ulceration. DIAGNOSTIC STUDIES/LAB DATA: On admission, white blood cell count elevated at 11.3, hemoglobin 14.7, platelets 150. Blood chemistry is significant for sodium of 151, potassium 3.6, chloride 117, bicarb 26, BUN 19, creatinine 0.92, BUN-to- creatinine ratio 20.7, lactic acid 1.4. AST 14, ALT 18. Troponin 0.02. BNP 28. Albumin 3.5. Included a chest x-ray that was reviewed by me that shows low lung volumes; small bibasilar infiltrates, right greater than left, consistent with aspiration , that was a clinical finding. EKG shows no acute ST or T-wave changes to suggest an WA. IMPRESSION AND PLAN: Mr. Bustamante is a 77-year-old gentleman with an aspiration event, who is imminently being placed on hospice, limited medical interventions are requested by the patient's family including rehydration and IV antibiotics. The patient's aspiration event was noted and he has some hypoxia that is being treated with oxygen. The has expressively cautioned me to consider palliative care if the patient does not immediately improve. The patient has been rehydrated in the emergency room. I do not believe the patient's abnormal vital signs are resulting from sepsis or septic shock, but rather dehydration and stress response. I believe the patient had an aspiration event and has some respiratory distress pursuant to that. The patient is certainly end stage with respect to his dementia and his chances of mortality are elevated given his overall frailty and multiple medical comorbidities. The patient will be treated with IV antibiotics to include IV Zosyn for gram- negative/anaerobic coverage. The patient will be seen by Dr. Shawna Avila, and the plan is to enroll in hospice after he is stabilized from the pneumonia perspective. he is undoubtedly near the end of his life. Further decision will be based on the patient's clinical course. I have communicated to the covering night physician (Dr. Tello) that Mr. Bustamante can be transitioned to palliative care / comfort care if his situation worsens. TIME SPENT: Total time taken to admit Mr. Bustamante was 75 minutes; greater than half that time was spent going over the history and physical, explaining the hospital plan of care to the patient's , Aliza. [id number]/[facility] #: [id number] MTDD
--- NOTE | 2017-12-20 18:21 | PN ---
Subjective Date of Service: 12/20/17 Interval History: . 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 at bedside; she has been there often. Friend of present also. Both his and I expect Mr. Bustamante will in the next 24 hours. [place] [facility] [place]. I spoke with her for ~ 30 minutes. . Family History: Unchanged from Admission Social History: Unchanged from Admission Past Medical History: Unchanged from Admission Objective Active Medications: . Acetaminophen (Tylenol Supp*) 650 mg DC Q6H PRN PRN Reason: FEVER/PAIN Last Admin: 12/19/17 06:15 Dose: 650 mg Atropine Sulfate (Atropine 1% (Oral/Sl)*) 2 drop SL Q30M PRN PRN Reason: DISCOMFORT Last Admin: 12/19/17 05:39 Dose: 2 drp Morphine Sulfate (Morphine Termite Control Technician Adult* 5 Mg/Ml) 30 mls @ 0 mls/hr INDEPENDENT LIVING INSTRUCTOR .change Q24H STEVE; Per Protocol PRN Reason: Protocol Last Admin: 12/19/17 05:26 Dose: 1 mls/hr . No vitals taken as per comfort care instructions. . Oxygen Devices in Use Now: OxyMask Appearance: NAD Eyes: No Scleral Icterus Ears/Nose/Mouth/Throat: Clear Oropharnyx Neck: Trachea Midline Respiratory: Symmetrical Chest Expansion and Respiratory Effort Cardiovascular: NL Sounds; No Murmurs; No JVD Abdominal: NL Sounds; No Tenderness; No Distention, No Hepatosplenomegaly Extremities: - - mottled extremities. Skin: - - mottled extremities; healed ulcers; area of zoster noted on R arm. Neurological: - - unresponsive Lines/Tubes/Other Access: Clean, Dry and Intact Peripheral IV Nutrition: - - not eating. Result Diagrams: 12/18/17 14:36 12/18/17 14:36 Assess/Plan/Problems-Billing . Assessment: 77 yo man on comfort care - admitted for aspiration pneumonia - Patient Problems (1) Palliative care status Current Visit: Yes Status: Acute Priority: High Code(s): Z51.5 - ENCOUNTER FOR PALLIATIVE CARE Comment: - morphine social work administrator - ativan, prn - atorpine - tylenol, prn - Dedicated 25 minute face to face discussion with patient's about goals of care and palliative approach. - She is at peace with her 's imminent and is making calls to family and friends. - Courtesy call to gene for visit to be arranged. - massage coordinator visit - total case time 12/19 was 35 minutes - comfort care status
[2017-12-21] MEDS: Morphine PCA ADULT* 5 MG/ML 30 ML PCA SCH ×2 (01:18→01:23)
[2017-12-21] MEDS ORDERED: Morphine PCA ADULT* 5 MG/ML 30 ML PCA SCH (03:39)
--- NOTE | 2017-12-21 12:41 | CONSULT ---
Palliative / Hospice Consult Ordering Provider: Maxwell Tapia - Subjective Code Status: DNR Advance Directives Location: In Chart MOLST Part A Completed: Yes MOLST Part E Completed:: Yes - History or Present Illness History or Present Illness: This 77 year old man with PMH of DM, PVD, CAD, multiple pneumonias, and progressive severe dementia with aspiration was admitted 2 days ago with RLL pneumoia and hypoxia. He has had aspiration for about a year, and was being fed a pureed diet, but his continued to pursue interventions for his ischemic feet including a R LE angioplasty in [place] in August of this year and subsequent treatment at the wound clinic with long courses of antibiotics. He had a CVA in 2002 and then cardiac stent placement in 2006, while continuing to manifest progressive dementia. He was hospitalized for pneumonia last December 2016 and had a palliative consult at that time without recommendation for palliative care, then again hospitalized April 2017 with UTI, then in July with cellulitis, which led to his referral for angioplasty. The patient decided to request hospice referral from her PMD 3 weeks ago, but he was unable to make a home visit for a week, then referred without a visit to [facility] by accident, which consumed another week, and the referral to [facility] was not received until 2 days prior to this admission. Unfortunately, he was unable to be seen by hospice prior to this recurrent aspiration pneumonia. He is now on comfort care only. IV fluids were stopped 2 days ago. He remains on IV MSO4. Lab Values: Laboratory Last Values WBC 11.3 10^3/ul (3.5-10.8) H 12/18/17 14:36 RBC 4.41 10^6/ul (4.0-5.4) 12/18/17 14:36 Hgb 14.7 g/dl (14.0-18.0) 12/18/17 14:36 Hct 44 % (42-52) 12/18/17 14:36 MCV 99 fL (80-94) H 12/18/17 14:36 MCH 33 pg (27-31) H 12/18/17 14:36 MCHC 33 g/dl (31-36) 12/18/17 14:36 RDW 15 % (10.5-15) 12/18/17 14:36 Plt Count 150 10^3/ul (150-450) 12/18/17 14:36 MPV 8.8 um3 (7.4-10.4) 12/18/17 14:36 Neut % (Auto) 72.2 % (38-83) 12/18/17 14:36 Lymph % (Auto) 19.1 % (25-47) L 12/18/17 14:36 [place] % (Auto) 7.4 % (0-7) H 12/18/17 14:36 Eos % (Auto) 0.7 % (0-6) 12/18/17 14:36 Baso % (Auto) 0.6 % (0-2) 12/18/17 14:36 Absolute Neuts (auto) 8.2 10^3/ul (1.5-7.7) H 12/18/17 14:36 Absolute Lymphs (auto) 2.2 10^3/ul (1.0-4.8) 12/18/17 14:36 Absolute Monos (auto) 0.8 10^3/ul (0-0.8) 12/18/17 14:36 Absolute Eos (auto) 0.1 10^3/ul (0-0.6) 12/18/17 14:36 Absolute Basos (auto) 0.1 10^3/ul (0-0.2) 12/18/17 14:36 Absolute Nucleated RBC 0 10^3/ul 12/18/17 14:36 Nucleated RBC % 0 12/18/17 14:36 Sodium 151 mmol/L (139-145) H 12/18/17 14:36 Potassium 3.6 mmol/L (3.5-5.0) 12/18/17 14:36 Chloride 117 mmol/L (101-111) H 12/18/17 14:36 Carbon Dioxide 26 mmol/L (22-32) 12/18/17 14:36 Anion Gap 8 mmol/L (2-11) 12/18/17 14:36 BUN 19 mg/dL (6-24) 12/18/17 14:36 Creatinine 0.92 mg/dL (0.67-1.17) 12/18/17 14:36 Est GFR ( Amer) 103.1 (>60) 12/18/17 14:36 Est GFR (Non-Af Amer) 80.2 (>60) 12/18/17 14:36 BUN/Creatinine Ratio 20.7 (8-20) H 12/18/17 14:36 Glucose 203 mg/dL (70-100) H 12/18/17 14:36 Lactic Acid 1.4 mmol/L (0.5-2.0) 12/18/17 14:36 Calcium 9.5 mg/dL (8.6-10.3) 12/18/17 14:36 Total Bilirubin 0.70 mg/dL (0.2-1.0) 12/18/17 14:36 AST 14 U/L (13-39) 12/18/17 14:36 ALT 18 U/L (7-52) 12/18/17 14:36 Alkaline Phosphatase 59 U/L (34-104) 12/18/17 14:36 Troponin I 0.02 ng/mL (<0.04) 12/18/17 14:36 B-Natriuretic Peptide 28 pg/mL (-100) 12/18/17 14:36 Total Protein 6.6 g/dL (6.4-8.9) 12/18/17 14:36 Albumin 3.5 g/dL (3.2-5.2) 12/18/17 14:36 Globulin 3.1 g/dL (2-4) 12/18/17 14:36 Albumin/Globulin Ratio 1.1 (1-3) 12/18/17 14:36 - Objective Active Medications: Acetaminophen (Tylenol Supp*) 650 mg MD Q6H PRN PRN Reason: FEVER/PAIN Last Admin: 12/19/17 06:15 Dose: 650 mg Atropine Sulfate (Atropine 1% (Oral/Sl)*) 2 drop SL Q30M PRN PRN Reason: DISCOMFORT Last Admin: 12/19/17 05:39 Dose: 2 drp Morphine Sulfate (Morphine Baking Assistant Adult* 5 Mg/Ml) 30 mls @ 0 mls/hr MEDICAL 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 .change Q24H STEVE; Per Protocol PRN Reason: Protocol Vital Signs: Vital Signs: Temp Pulse Resp BP Pulse Ox 100.0 F 146 25 96/61 90 12/19/17 07:35 12/19/17 07:37 12/21/17 07:44 12/19/17 07:37 12/19/17 07:37 Patient Weight: Weight 100 lb Intake and Output: Intake & Output 04/28/18 04/29/18 04/30/18 05/01/18 06:59 06:59 06:59 06:59 Intake Total 2500 176 80 Balance 2500 176 80 Weight 100 lb Intake: IV Fluids 2500 176 80 NS (0.9%) 500 176 80 Oral 0 0 0 Other: Estimated Void Large Small Small Small # Bowel Movements 1 0 0 Estimated Stool Amount Small # Voids 0 3 1 ADLs: Meal Record Start: 12/18/17 17: 06 Freq: Status: Active Protocol: Document 12/18/17 18:00 [id number] (Rec: 12/18/17 22:35 [id number] MED-C13) Document 12/19/17 09:00 [id number] (Rec: 12/19/17 10:19 [id number] MED-C09) Document 12/19/17 13:39 [id number] (Rec: 12/19/17 13:40 [id number] MED-C09) Intake and Output Start: 12/18/17 17: 06 Freq: DAILY@0600,1400,2200 Status: Active Protocol: Document 12/18/17 22:00 [id number] (Rec: 12/18/17 22:39 [id number] MED-C13) Document 12/19/17 04:59 [id number] (Rec: 12/19/17 04:59 [id number] MED-C13) Document 12/19/17 13:39 [id number] (Rec: 12/19/17 13:40 [id number] MED-C09) Document 12/19/17 22:00 [id number] (Rec: 12/19/17 23:08 [id number] MED-C09) Document 12/20/17 04:55 [id number] (Rec: 12/20/17 04:56 [id number] MED-C09) Document 12/20/17 13:26 [id number] (Rec: 12/20/17 13:27 [id number] MED-C05) Document 12/20/17 21:19 [id number] (Rec: 12/20/17 21:20 [id number] MED-C09) Document 12/21/17 04:27 [id number] (Rec: 12/21/17 04:31 [id number] MED-C05) Eyes: No Scleral Icterus Ears/Nose/Mouth/Throat: Clear Oropharnyx Neck: Trachea Midline Cardiovascular: NL Sounds; No Murmurs; No JVD Respiratory: Symmetrical Chest Expansion and Respiratory Effort Abdominal: NL Sounds; No Tenderness; No Distention, No Hepatosplenomegaly Extremities: - - mottled extremities. 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 Neurological: - - unresponsive - Assessment Assessment: The patient's is holding up well, says she did not realize the extent of his illness and risk, and remained hopeful that his many surgeries, hospitalizations and interventions over the past year would "turn things around ," but she is now comprehending that her has had terminal illness for quite some time, and she is pleased with the care he is receiving, hoping that he will "hang on" until his sons and grandsons can arrive here from [place] to say goodbye. The patient is comfortable and breathing easily with MSO4 drip and O2, and has no other apparent palliative needs. I expect he will in the next 24 to 72 hours. Thanks for asking me to see him. - Plan Consult Plan (MU): Palliative - Time On Unit Date of Evaluation: 12/21/17 Hospice Consult Time in: 11:45 Hospice Consult Time Out: 12:30 Hospice Consult Time Total: 45 > 50% of Time Spend In Counseling or Coordinating Care: Yes
--- NOTE | 2017-12-21 17:34 | PN ---
Subjective Date of Service: 12/21/17 Interval History: Patient unresponsive with agonal breathing. at bedside stating she feels that his breathing has become irregular. She reports lots of support from friends and family Family History: Unchanged from Admission Social History: Unchanged from Admission Past Medical History: Unchanged from Admission Objective Active Medications: Acetaminophen (Tylenol Supp*) 650 mg MD Q6H PRN PRN Reason: FEVER/PAIN Last Admin: 12/19/17 06:15 Dose: 650 mg Atropine Sulfate (Atropine 1% (Oral/Sl)*) 2 drop SL Q30M PRN PRN Reason: DISCOMFORT Last Admin: 12/19/17 05:39 Dose: 2 drp Morphine Sulfate (Morphine Tire Worker Adult* 5 Mg/Ml) 30 mls @ 0 mls/hr AD SETTER .change Q24H STEVE; Per Protocol PRN Reason: Protocol Oxygen Devices in Use Now: None, OxyMask Appearance: 77 yo male unresponsive with agonal breathing, appears comfortable Ears/Nose/Mouth/Throat: Mucous Membranes Moist Cardiovascular: RRR Abdominal: - - agonal breathing, RR easy, comfortable Skin: - - foot bilaterally are blue and mottled Result Diagrams: 12/18/17 14:36 12/18/17 14:36 Assess/Plan/Problems-Billing . Assessment: 77 yo man on comfort care - admitted for aspiration pneumonia - Patient Problems (1) Palliative care status Comment: - morphine senior civil engineer - ativan, prn - atropine - tylenol, prn - She is at peace with her 's imminent and is making calls to family and friends. - comfort care status (2) DNR (do not resuscitate) Current Visit: No Status: Acute
--- NOTE | 2017-12-22 06:19 | PN ---
Progress Note - Progress Note Date of Service: 12/22/17 Note: I was informed of the patient's passing on 12/21/17 at 2325. He was on comfort care on a morphine drip. Cause of is aspiration pneumonia secondary to dementia.
== END 2017-12-21 23:25 | disposition expired | DRG 179 ==
LOC: ED 13:58 → MED 16:38
PROVIDERS: ADMIT Internal Medicine; ATTEND Hospitalist
DX: J69.0 Pneumonitis due to inhalation of food and vomit (principal); F03.90 Unspecified dementia, unspecified severity, without behavioral disturbance, psychotic disturbance, mood disturbance, and anxiety; Z51.5 Encounter for palliative care; Z66 Do not resuscitate; R09.02 Hypoxemia; R06.03 Acute respiratory distress; I69.320 Aphasia following cerebral infarction; E11.9 Type 2 diabetes mellitus without complications; I25.10 Atherosclerotic heart disease of native coronary artery without angina pectoris; Z95.5 Presence of coronary angioplasty implant and graft; Z79.84 Long term (current) use of oral hypoglycemic drugs; Z79.1 Long term (current) use of non-steroidal anti-inflammatories (NSAID); Z79.02 Long term (current) use of antithrombotics/antiplatelets; Z79.899 Other long term (current) drug therapy; Z88.2 Allergy status to sulfonamides; Z88.8 Allergy status to other drugs, medicaments and biological substances; Z91.041 Radiographic dye allergy status
CPT/HCPCS: 36415; 71045; 80053; 83605; 83880; 84484; 85025; 93005; 99283; A9270-GY; J0456; J0696; J1644; J1940; J2270; J2543